=== PATIENT | male | born 1935 | race Caucasian/White ===

== ENCOUNTER → 2016-05-14 | Outpatient (CLI) | payer OTHER ==
[2016-03-18 10:08] VITALS: BP 114/50
[~2016-05-14] MED LIST: AMIO200T2 PO; ASPI325T11 PO; ATOR20TA58 PO; ATOR40TA59 PO; CLOP75TA PO; CONTRAST GIVEN MC PRN; FURO40TA4 PO; IOHEXOL 300 MG/ML 100ML VIAL. IV ONE; METF500T4 PO; METO50TA2 PO; MIDO2.5T PO; NITR0.4T6 SL; OMEP40CA5 PO; OXYC1TAB7 PO; PYRI250T PO; VITA1TAB3 PO
--- NOTE | 2016-05-14 14:43 | KCIC ---
PROCEDURE CT angiogram chest. HISTORY Chest pain. History of clot. Previous cardiac surgery. TECHNIQUE Axial images and coronal, oblique coronal, and sagittal maximum intensity projection re-formatted images are provided. 95 milliliters of intravenous Omnipaque 300 was administered without complication. One or more of the following individualized dose reduction techniques were utilized for this exam: 1. Automated exposure control. 2. Adjustment of the mA and/or kV according to patient's size. 3. Use of iterative reconstruction technique. COMPARISON No prior CT. Chest radiograph from March 29, 2016. FINDINGS The contrast bolus is satisfactory. There is no filling defect to suggest pulmonary embolism. There is atheromatous disease in the thoracic aorta without aneurysm. There are postoperative findings of CABG. There is no hilar or mediastinal adenopathy. Central airways are patent. There is no pleural effusion. There is emphysema, mild to moderate. There is no consolidation. Pulmonary nodule abutting the pleura versus pleural lymph node is noted on the left on axial image 37 measuring 6 millimeters. Calcified granuloma is noted in the left lung base. There is minimal fatty infiltration of the liver. There is a simple cyst partially included in the left kidney, at least 2.4 centimeters in size. There are degenerative changes the spine. IMPRESSION 1. Negative for pulmonary embolism. 2. Emphysema. 3. Pulmonary nodule for which 6 month follow up would be recommended per Fleischner society. Electronically signed by: Nikos Montero MD (May 14, 2016 14:42:18)
== END | disposition home or self-care (01) ==
LOC: KCIC CT 13:10
PROVIDERS: ATTEND Internal Medicine Critical Care Medicine
DX: R07.9 Chest pain, unspecified (principal); J43.9 Emphysema, unspecified; R91.1 Solitary pulmonary nodule
CPT/HCPCS: 71275; 82565; Q9967

== ENCOUNTER 2016-07-09 09:15 | Observation (INO) | payer OTHER ==
[~2016-07-09] VITALS: Ht 188 cm; Wt 93.5 kg
[2016-07-09] VITALS (14 sets, daily range): BP systolic 139–183; BP diastolic 80–105
[~2016-07-09 09:15] MED LIST changes: -CONTRAST GIVEN MC PRN; -IOHEXOL 300 MG/ML 100ML VIAL. IV ONE
[2016-07-09 09:41] LABS: HEMATOCRIT 39.1 % (39.0-53.0); HEMOGLOBIN 12.9 g/dL (13.0-17.5); RED BLOOD COUNT 4.4 x10^6/uL (4.30-5.70); RED CELL DISTRIBUTION WIDTH 15.8 % (11.5-14.5); WHITE BLOOD COUNT 9.7 x10^3/uL (4.0-11.0)
[2016-07-09] MEDS ORDERED: MIDO10TA PO (09:45)
[2016-07-09] MEDS ORDERED: METF-620 PO (09:45)
[2016-07-09 09:46] LABS: CALCIUM 8.8 mg/dL (8.5-10.1); CREATININE 1.4 mg/dL (0.7-1.3); GFR 48.5; POTASSIUM 4.7 mmol/L (3.5-5.1)
[2016-07-09] MEDS ORDERED: LIDOCAINE 2% 20 ML VIAL. ONE (09:55)
[2016-07-09] MEDS ORDERED: IODIXANOL 320 MG/ML 100 ML VIAL. ONE (09:55)
[2016-07-09 09:59] LABS: INR 1.1 (0.8-1.1); PROTHROMBIN TIME PATIENT 13.3 SEC (11.7-14.0)
[2016-07-09] MEDS ORDERED: fentaNYL PF VIAL 100 MCG/2 ML VIAL ONE (10:16)
[2016-07-09] MEDS ORDERED: MIDAZOLAM HCL/PF 2 MG/2 ML VIAL. ONE (10:16)
--- NOTE | 2016-07-09 10:19 | PDOC ---
MODERATE SEDATION ASSESSMENT RISKS/ALTERNATIVES Risks/Alternatives Risks and alternatives of this type of sedation and procedure discussed with: RISK/ALTERNATIVES: Patient H & P ON CHART H & P H & P on chart and reviewed for co-morbid conditions and appropriate labs. H&P ON CHART: Yes STATUS PREG STATUS ASSESSED: N/A MEDS/ALLERGIES REVIEWED Meds/Allergies Reviewed Medications and Allergies including time and route of recently administered narcotics and sedatives. MEDS/ALLERGIES REVIEWED: Yes ASA RATING ASA RATING: II AIRWAY ASSESSMENT Airway Assessment Airway patency, oral function limitations, presence of caps, crowns, dentures, partials, and ability to extend neck assessed. AIRWAY ASSESSMENT: Yes MALLAMPATI SCORE MALLAMPATI SCORE: II PRE-SEDATION ASSESSMENT PRE-SEDATION ASSESSMENT: Yes RICK FINK MD Jul 09, 2016 10:19
[2016-07-09] MEDS ORDERED: BIVALIRUDIN 250 MG VIAL. IV ONE ×2 (10:55→11:15)
[2016-07-09] MEDS ORDERED: IODIXANOL 320 MG/ML 100 ML VIAL. IART ONE (11:15)
[2016-07-09] MEDS ORDERED: MIDAZOLAM HCL/PF 2 MG/2 ML VIAL. IV ONE (11:15)
[2016-07-09] MEDS ORDERED: fentaNYL PF VIAL 100 MCG/2 ML VIAL IV ONE (11:15)
[2016-07-09] MEDS ORDERED: CONTRAST GIVEN MC PRN (11:15)
[2016-07-09] MEDS ORDERED: LIDOCAINE 2% 20 ML VIAL. IJ ONE (11:15)
[2016-07-09] MEDS: IV NORMAL SALINE 1000ML BAG 1,000 ML IV SCH ×2 (11:20→18:30)
[2016-07-09] MEDS ORDERED: IV 1/2 NORMAL SALINE 1,000 ML IV SCH (11:27)
[2016-07-09] MEDS ORDERED: ACETAMINOPHEN 325 MG TABLET. PO PRN (11:30)
[2016-07-09] MEDS ORDERED: NITROGLYCERIN SUBLINGUAL 0.4 MG BOTTLE OF 25. SL PRN (11:30)
--- NOTE | 2016-07-09 11:51 | CARD ---
APPROVED REPORT Procedure(s) performed: 1. Right and left heart catheterization, selective coronary angiography, afshin ective angiography of the bypass grafts and left ventriculography 2. Successful PCI/drug eluting stent placement to the right coronary artery INDICATION The indication(s) include : unstable angina . PROCEDURE NARRATIVE After explaining the risks, benefits and alternative options, informed consent was obtained from jeannette ent. Patient was brought to the cardiac Junk Removal Specialist and his right groin was prepped and draped in the us ual fashion. 20 mL of 2% lidocaine was infiltrated into the skin and subcutaneous tissues for local a nesthesia. Arterial and venous accesses were obtained in the right common femoral artery and vein res pectively and 6 and 8 Nam[place]ian sheaths were inserted. A 7.5 [place] Exeter-Alley catheter was then advanced under fluoroscopy guidance and intracardiac pressures, oxygen saturations and cardiac output by ther modilution method was measured. Subsequently, 6 [place]ian IM catheter was used to perform selective barry ography of the left internal mammary artery graft to the left anterior descending artery, [place] righ t coronary artery and also the saphenous vein graft to the diagonal branch. 6 [place]ian JL4 catheter was used to perform selective angiography of the left main coronary artery. 6 [place]ian pigtail catheter wa s used to perform left ventriculography. The following findings were noted. FINDINGS A. RIGHT HEART CATHETERIZATION a. Intracardiac pressures: Mean right atrial pressure 1 mmHg, right ventricle pressure 27/1 mmHg, c oronary artery pressure 27/10 mmHg with mean PA pressure 16 mmHg, mean pulmonary capillary wedge pres sure 5 mmHg. No evidence of pulmonary hypertension. b. Oxygen saturations: Right atrium 64.9%, pulmonary artery 64.8%, femoral arterial sheath 95%. No evidence of intracardiac shunt. c. Cardiac output by thermodilution method 5.1 L/m. B. LEFT HEART CATHETERIZATION 1. Hemodynamics: Left ventricular end-diastolic pressure 10 mmHg. No pullback gradient across the a ortic valve. 2. Left ventriculography: Normal left ventricle systolic function with ejection fraction estimated at 50-55%. No significant mitral regurgitation seen. 3. Coronary and bypass graft angiography a. The left main coronary artery arose from the left sinus of Valsalva, gave rise to the left anteri or descending and left circumflex arteries and showed 30% stenosis in the distal segment. b. The left anterior descending artery showed 90% ostial segment stenosis. c. The left circumflex artery showed 30% stenosis involving the midsegment of a large second obtuse marginal branch. d. The right coronary artery was a large and dominant vessel that showed 70-80% calcified stenosis i nvolving the ostial segment. e. The left internal mammary artery graft to the left anterior descending artery was widely patent. Distal to the anastomosis, the [place] left anterior descending artery did not show any significant st enosis. f. The saphenous vein graft to the diagonal branch was widely patent. INTERVENTION The right coronary artery was engaged with a 6 Namibian JR4 guide catheter and the stenosis in the osti al segment was crossed with a 0.014 inch moziy guidewire. This was stented successfully with a 4.0 x 12 mm resolute drug eluting stent. Follow-up angiography showed resolution of the stenosis t o 0% with MAUREEN-3 distal flow. Patient tolerated the procedure well. Hemostasis in the right groin was achieved using Angio-Seal and manual compression. There were no immediate complications. Conclusion 1. Coronary artery disease s/p coronary artery bypass surgery with patent left internal mammary eliseo ry graft to the left anterior descending artery and patent saphenous vein graft to the diagonal branc h. The dominant right coronary artery that was not grafted showed 70-80% ostial segment stenosis. 2. Successful PCI/drug eluting stent placement to the right coronary artery. 3. Normal left ventricle systolic function with ejection fraction estimated at 55%. 4. No evidence of pulmonary hypertension. 5. No evidence for intracardiac shunt. Recommendations 1. Aspirin 325 mg daily 2. Plavix 75 mg daily for preferably one year 3. Cardiovascular risk factor modification.
[2016-07-09] MEDS ORDERED: CLOPIDOGREL BISULFATE 75 MG TABLET PO SCH (12:00)
[2016-07-09] MEDS ORDERED: ASPIRIN 325 MG TABLET PO SCH (12:00)
[2016-07-10 03:18] VITALS: BP 137/84
[2016-07-10 07:00] VITALS: BP 157/85
[2016-07-10] MEDS ORDERED: ASPIRIN ENTERIC COATED 325 MG TABLET.DR. PO SCH (08:00)
[2016-07-10] MEDS ORDERED: CLOPIDOGREL BISULFATE 75 MG TABLET PO SCH (08:00)
[2016-07-10] MEDS ORDERED: ASPI325T11 PO (09:11)
--- NOTE | 2016-07-10 09:16 | DISCH ---
DISCHARGE INSTRUCTIONS Condition on Discharge Condition on Discharge: Stable Activity After Discharge Activity Instructions for Disc: Activity as tolerated, Avoid exertion Lifting Instructions after Dis: No heavy lifting, No pulling or pushing, Do not lift >10 pounds Driving Instructions after Dis: Do not drive (for 4-7 days ) Weight Bearing Status after Di: Full weight bearing Diet after Discharge Diet after Discharge: Cardiac Contacting the DRBola after DC Call your doctor for: Concerns you may have JANIE ENGLISH APRN Jul 10, 2016 09:16
--- NOTE | 2016-07-10 11:19 | PDOC3 ---
Discharge Summary Visit Information Date of Admission: Jul 09, 2016 Date of Discharge: Jul 10, 2016 Admitting Diagnosis: unstable angina Final Diagnosis Problems Medical Problems: (1) CAD (coronary artery disease) Status: Acute (2) CAD (coronary artery disease) Status: Acute (3) Unstable angina Status: Acute Brief Hospital Course Allergies Allergies Coded Allergies Type Severity Reaction Last Updated Verified No Known Allergies Allergy Unknown 03/09/16 Yes Vital Signs Vital Signs Date Time Temp Pulse Resp B/P Pulse Ox O2 Delivery O2 Flow Rate FiO2 07/10/16 07:40 Room Air 3.0 07/10/16 07:00 97.8 75 18 157/85 94 97.8 Lab Results Laboratory Tests Test 07/09/16 09:30 07/09/16 16:45 07/09/16 20:49 07/10/16 08:22 White Blood Count 9.7x10^3/uL (4.0-11.0) Red Blood Count 4.40x10^6/uL (4.30-5.70) Hemoglobin 12.9g/dL (13.0-17.5) Hematocrit 39.1% (39.0-53.0) Mean Corpuscular Volume 89fL (79-100) Mean Corpuscular Hemoglobin 29pg (25-35) Mean Corpuscular Hemoglobin Concent 33g/dL (31-37) Red Cell Distribution Width 15.8% (11.5-14.5) Platelet Count 197x10^3/uL (140-400) Prothrombin Time 13.3SEC (11.7-14.0) Prothromb Time International Ratio 1.1 (0.8-1.1) Sodium Level 142mmol/L (136-145) Potassium Level 4.7mmol/L (3.5-5.1) Chloride Level 108mmol/L (98-107) Carbon Dioxide Level 25mmol/L (21-32) Anion Gap 9 (6-14) Blood Urea Nitrogen 24mg/dL (8-26) Creatinine 1.4mg/dL (0.7-1.3) Estimated GFR (Cockcroft-Gault) 48.5 Glucose Level 141mg/dL (70-99) Calcium Level 8.8mg/dL (8.5-10.1) Glucose (Fingerstick) 107mg/dL (70-99) 138mg/dL (70-99) 152mg/dL (70-99) Laboratory Tests Test 07/09/16 16:45 07/09/16 20:49 07/10/16 08:22 Glucose (Fingerstick) 107mg/dL (70-99) 138mg/dL (70-99) 152mg/dL (70-99) Brief Hospital Course Mr. Horner is a pleasant 81 old male, s/p recent coronary artery bypass surgery , who presented with complaints of ongoing dyspnea upon minor exertion, severely limiting his activities of daily living. Cardiac rehabilitation did not improve symptoms. Patient underwent right and left heart catheterization for definitive evaluation. Cath revealed patent left internal mammary artery graft to the left anterior descending artery and patent saphenous vein graft to the diagonal branch. The dominant right coronary artery that was not grafted showed 70-80% ostial segment stenosis. No evidence of pulmonary hypertension. Patient underwent successful PCI/drug eluting stent placement to the right coronary artery via right groin approach. Arteriotomy site CDI with neurovascular status intact. Did well overnight without complications. No significant rhythm ectopies overnight on telemetry. Ambulatory without difficulty. No CP, SOA. Lungs CTA. He is to continue DAPT with ASA 325mg and Plavix. No BB or JENN with history of orthostatic hypotension treated with Midodrine. Post cath instructions also have been reviewed. History significant for ischemic cardiomyopathy with an EF of 30-35%; presently well-compensated. Additionally significant for orthostatic hypotension, which has improved with recently increased dose of Midodrine. Patient would like to continue cardiac rehab at [facility] as it is more convenient. Patient to follow up in our office with Dr. Bruner in 4 weeks. Discharge Information Condition at Discharge: Improved Follow Up: Weeks (4) Disposition/Orders: D/C to Home Scheduled Aspirin (Aspirin Ec) 1 TAB PO DAILY Atorvastatin Calcium (Atorvastatin Calcium) 1 TAB PO QHS (Reported) Clopidogrel Bisulfate (Clopidogrel) 1 TAB PO DAILY (Reported) Metformin Hcl (Metformin Hcl) 1,000 MG PO BIDWMEALS (Reported) Midodrine Hcl (Midodrine Hcl) 10 MG PO TID (Reported) Omeprazole (Omeprazole) 40 MG PO DAILY (Reported) Patient Instructions Patient Instructions GENERAL INSTRUCTIONS: 1. Your dressing should be removed prior to leaving the hospital. 2. It is OK to shower the day after your procedure. 3. If you received stents, be sure to carry your stent information card with you in your wallet/purse at all times. 4. Call the office immediately at [phone] if you notice any fever or if there is redness, worsening tenderness/pain, increased bruising, or drainage from the puncture site. 5. Should you have bleeding from the site, lie down immediately & put pressure on the site. The pressure should be hard enough to stop the bleeding. Have the nearest person call 911. DO NOT try to drive to the ER with active bleeding. 6. If you notice a change in color, coolness to touch, or loss of feeling in the affected extremity, come to the emergency room. Please have someone drive you or call 911 if no one is available. DO NOT drive yourself. 7. If you normally take glucophage (metformin), please do not take this medicine for 48 hours following your procedure. 8. DO NOT STOP TAKING YOUR PLAVIX OR ASPIRIN UNLESS IT IS CLEARED BY A BRAN MIXER OF YOUR PHONE SCREENER AT OUR OFFICE. 9. QUIT SMOKING: the [place] [employer], [place] [employer], & [place] [employer] have cessation resources available on their websites 10. Please have someone available to drive you home from the hospital as you may be limited by sedation medications given during the procedure. Femoral (Groin) access: 1. Do no lifting, pushing, pulling, bending, stooping, or recurrent stair climbing for 3 days following your procedure. 2. Once past the first 3 days, do not do any HEAVY exertion or lifting for one week following the procedure. No gym workouts, running, lifting greater than a gallon of milk, etc 3. Do not submerge in bath or pool for one week. OK to drive 3 days following your procedure, but if going long distance, do not go alone & take hourly breaks to get out of car and walk around. Radial Artery (Wrist) access: 1. No pushing, pulling, lifting, typing, or anything that requires repetitive use/movement of the affected wrist for 3 days following your procedure. 2. OK to drive the day following your procedure. (This is because of effects of sedating medications.) Call the office at [phone] for any questions or concerns. JANIE ENGLISH APRN Jul 10, 2016 11:19
== END 2016-07-10 10:15 | disposition home or self-care (01) ==
LOC: CCL 09:15 → 2 NORTH 11:30
PROVIDERS: ADMIT Internal Medicine Cardiovascular Disease; ATTEND Internal Medicine Cardiovascular Disease
DX: I25.110 Atherosclerotic heart disease of native coronary artery with unstable angina pectoris (principal); I25.5 Ischemic cardiomyopathy; Z95.1 Presence of aortocoronary bypass graft; Z95.5 Presence of coronary angioplasty implant and graft
CPT/HCPCS: 36415; 80048; 82947; 85027; 85610; 92928; 93461; C1769; C1771; C1874; C1887; C1892; G0269; G0378; G0379; J0583; J2250; J3010; J7030; 96374; 96375

== ENCOUNTER 2016-08-02 11:51 | Inpatient (IN) | payer OTHER ==
[~2016-08-02] VITALS: Ht 185.4 cm; Wt 94.5 kg
[2016-08-02] VITALS (10 sets, daily range): BP systolic 119–189; BP diastolic 67–111
[~2016-08-02 11:51] MED LIST changes: +METF-620 PO; +MIDO10TA PO
--- NOTE | 2016-08-02 13:21 | PDOC2 ---
CARDIAC CONSULT DATE OF CONSULT Date of Consult DATE: 08/02/16 TIME: 13:16 REASON FOR CONSULT Reason for Consult: CP, SVT HISTORY OF PRESENT ILLNESS HISTORY OF PRESENT ILLNESS Mr Horner is an 81 year old male with history of recent CABG x 2 (GONSALES - LAD, SVG - D1) in February 2016, with subsequent PCI and stent last month to RCA. He presented to the ED this am with complaints of dyspnea, chest pressure and palpitations. He was found to be in SVT, given amiodarone and started on amiodarone drip. He was seen in the ED at [facility] in consult. At the time of consult he was on amiodarone drip and back in sinus rhythm 80s, chest pain had resolved and he was resting comfortably. His initial troponin was mildly elevated but in the indeterminate range. He reports he had onset of symptoms while making his bed this morning. He says he has palpitations on a daily basis but normally they do not last. PAST MEDICAL HISTORY Past Medical History Cardiovascular: AFIB (paroxysmal), CAD, HTN, Hyperlipidemia, orthostatic hypotension, CABG and subsequent stenting Pulmonary: COPD, Pulmonary embolus (hx of DVT) CENTRAL NERVOUS SYSTEM: Other (No pertinent history) GI: GERD Heme/Onc: Other (CLL treated with chemotherapy 2-3 yrs ago) Hepatobiliary: Other (SILVEIRA) Psych: No pertinent hx Musculoskeletal: Osteoarthritis Rheumatologic: No pertinent hx Infectious disease: No pertinent hx ENT: No pertinent hx Renal/: Benign prostatic enlarg. Endocrine: Diabetes (2) Dermatology: No pertinent hx PAST SURGICAL HISTORY Past Surgical History Appendectomy, Other (PCI/stent to LAD in 2009 and follow up [facility] in 03/2013; bone marrow biopsy) FAMILY HISTORY Family History Coronary Artery Disease (father), Stroke, Other (arrhythmia ?afib) SOCIAL HISTORY Social History Smoke: No (remote tobaccoism) ALCOHOL: none Drugs: None Lives: with Family CURRENT MEDICATIONS CURRENT MEDICATIONS Home meds: Midodrine 10mg TID Lipitor 40mg daily Plavix 75 mg daily omeprazole 40mg daily Vitamin D3 1000 IU daily Metformin 1000mg BID ALLERGIES ALLERGIES: Coded Allergies: No Known Allergies (Verified Allergy, Unknown, 03/09/16) ROS Review of System as per HPI or negative PHYSICAL EXAM General: Alert, Oriented X3, Cooperative, No acute distress HEENT: Atraumatic, EOMI, Mucous membr. moist/pink, Other (no JVD/HJR) Lungs: Clear to auscultation, Normal air movement Heart: Regular rate, Normal S1, Normal S2, Other (no gallops, clicks or rubs) Abdomen: Normal bowel sounds, Soft, No tenderness Extremities: No clubbing, No cyanosis, No edema, Normal pulses Neuro: Normal speech, Strength at 5/5 X4 ext Psych/Mental Status: Mental status NL, Mood NL VITALS VITALS HR 80, sinus rhythm, SaO2 96%, BP 128/76 LABS Lab: WBC 13.2, Cr 1.5, Gluc 186, Trop 0.036, Alb 3.3 remainder of labs reviewed. EKG EKG SVT with LBBB rates up to 180s ECHOCARDIOGRAM ECHOCARDIOGRAM 03/02/16 <Conclusion> Left ventricle systolic function is moderately impaired. The Ejection Fraction is 30-35%. The septum, anterior wall and apex appear hypokinetic. HEART CATH HEART CATH 07/09/16 A. RIGHT HEART CATHETERIZATION a. Intracardiac pressures: Mean right atrial pressure 1 mmHg, right ventricle pressure 27/1 mmHg, coronary artery pressure 27/10 mmHg with mean PA pressure 16 mmHg, mean pulmonary capillary wedge pressure 5 mmHg. No evidence of pulmonary hypertension. b. Oxygen saturations: Right atrium 64.9%, pulmonary artery 64.8%, femoral arterial sheath 95%. No evidence of intracardiac shunt. c. Cardiac output by thermodilution method 5.1 L/m. B. LEFT HEART CATHETERIZATION 1. Hemodynamics: Left ventricular end-diastolic pressure 10 mmHg. No pullback gradient across the aortic valve. 2. Left ventriculography: Normal left ventricle systolic function with ejection fraction estimated at 50-55%. No significant mitral regurgitation seen. 3. Coronary and bypass graft angiography a. The left main coronary artery arose from the left sinus of Valsalva, gave rise to the left anterior descending and left circumflex arteries and showed 30 % stenosis in the distal segment. b. The left anterior descending artery showed 90% ostial segment stenosis. c. The left circumflex artery showed 30% stenosis involving the midsegment of a large second obtuse marginal branch. d. The right coronary artery was a large and dominant vessel that showed 70-80 % calcified stenosis involving the ostial segment. e. The left internal mammary artery graft to the left anterior descending artery was widely patent. Distal to the anastomosis, the [place] left anterior descending artery did not show any significant stenosis. f. The saphenous vein graft to the diagonal branch was widely patent. s/p PCI/ BARTOLO to RCA ASSESSMENT/PLAN ASSESSMENT/PLAN 1. SVT with LBBB - sinus rhythm with amiodarone. history of PAF. Currently home meds do not include antiarrhythmics or anticoagulants. Consider outpatient event monitoring. May consider resumption of OAC and amiodarone outpatient. No rate control meds currently due to orthostatic hypotension (on Midodrine). 2. chest pain - likely secondary to #1. Monitor serial enzymes. 3. CAD/CABG status with subsequent PCI stent - continue medical therapy 4. HLD - continue statin therapy 5. orthostatic hypotension with history of syncope - remains on midodrine at home. Problems: SUSANNE NICHOLSON APRN August 02, 2016 13:21
[2016-08-02] MEDS ORDERED: METF500T4 PO (13:41)
[2016-08-02] MEDS: MIDODRINE 5 MG TABLET PO SCH ×2 (14:00→17:41)
[2016-08-02] MEDS ORDERED: IV NORMAL SALINE 500ML BAG 500 ML IV ONE (14:00)
[2016-08-02] MEDS ORDERED: METF-620 PO (14:06)
--- NOTE | 2016-08-02 14:33 | PDOC1 ---
History and Physical Past Medical History Cardiovascular: AFIB, CAD, HTN, Hyperlipidemia Pulmonary: COPD, Pulmonary embolus CENTRAL NERVOUS SYSTEM: Other GI: GERD Heme/Onc: Other Hepatobiliary: Other Psych: No pertinent hx Rheumatologic: No pertinent hx Infectious disease: No pertinent hx Renal/: Benign prostatic enlarg. Endocrine: Diabetes Past Surgical History Past Surgical History: Appendectomy, Other Family History Family History: Coronary Artery Disease, Stroke, Other Social History ALCOHOL: none Drugs: None Current Medications Current Medications Current Medications Medications (Trade) Dose Ordered Sig/Musa Start Time Stop Time Status Last Admin Dose Admin Aspirin (Ecotrin) 325 mg DAILYWBKFT 08/02/16 14:00 Atorvastatin Calcium (Lipitor) 40 mg QHS 08/02/16 21:00 Clopidogrel Bisulfate (Plavix) 75 mg DAILYWBKFT 08/02/16 14:00 Midodrine (Proamatine) 10 mg [id number] 08/02/16 14:00 Pantoprazole Sodium (Protonix) 40 mg DAILYAC 08/02/16 14:00 Sodium Chloride 500 ml @ 500 mls/hr 1X ONCE 08/02/16 14:00 08/02/16 14:59 Allergies Allergies Allergies Coded Allergies Type Severity Reaction Last Updated Verified No Known Allergies Allergy Unknown 03/09/16 Yes ROS Review of System CONSTITUTIONAL: No fever or chills EYES: No recent changes SKIN: No rash or itching CARDIOVASCULAR: No chest pain, syncope, but sob, RESPIRATORY: No SOB or cough GASTROINTESTINAL: No nausea, vomiting or abdominal pain NEUROLOGICAL: No headaches or weakness ENDOCRINE: No cold or heat intolerance GENITOURINARY: No urgency or frequency of urination MUSCULOSKELETAL: No back pain or joint pain LYMPHATICS: No enlarged lymph nodes PSYCHIATRIC: No anxiety or depression Physical Exam Physical Exam GEN.: No apparent distress. Alert and oriented. HEENT: Head is normocephalic, atraumatic NECK: Supple. no JVD LUNGS: Clear to auscultation. normal airflow anterior HEART: RRR, S1, S2 present. Peripheral pulses intact ABDOMEN: Soft, nontender. Positive bowel sounds. EXTREMITIES: Without any cyanosis. NEUROLOGIC: Normal speech, normal tone PSYCHIATRIC: Normal affect, normal mood. SKIN: dry Vitals Vitals Vital Signs Date Time Temp Pulse Resp B/P (MAP) Pulse Ox O2 Delivery O2 Flow Rate FiO2 08/02/16 13:00 97.9 74 12 160/94 (116) 97 Room Air 97.9 VTE Prophylaxis Ordered VTE Prophylaxis Devices: Yes VTE Pharmacological Prophylaxi: Yes ROSSY GRAMAJO MD August 02, 2016 14:33
[2016-08-02] MEDS: ASPIRIN ENTERIC COATED 325 MG TABLET.DR. PO SCH (14:45)
[2016-08-02] MEDS ORDERED: ALBUTEROL SULFATE 2.5 MG/3 ML NEBU. NEB PRN (14:45)
[2016-08-02] MEDS ORDERED: HYDROcodone/APAP 5/325MG 1 TAB TABLET PO PRN (14:45)
[2016-08-02] MEDS ORDERED: ONDANSETRON PF 4 MG/2 ML VIAL. IV PRN (14:45)
[2016-08-02] MEDS ORDERED: AMIODARONE 900 MG in IV DEXTROSE 5% 500 ML IV PRN (14:45)
[2016-08-02] MEDS: PANTOPRAZOLE 40 MG TABLET.DR. PO SCH (14:45)
[2016-08-02] MEDS ORDERED: ACETAMINOPHEN 325 MG TABLET. PO PRN (14:45)
[2016-08-02] MEDS: CLOPIDOGREL BISULFATE 75 MG TABLET PO SCH (14:45)
[2016-08-02] MEDS: ATORVASTATIN CALCIUM 40 MG TABLET. PO SCH (20:46)
[2016-08-02 23:03] LABS: BILIRUBIN,URINE NEGATIVE (NEG); GLUCOSE,URINE NEGATIVE (NEG); NITRITE,URINE NEGATIVE (NEG); PH,URINE 5.5; PROTEIN,URINE NEGATIVE (NEG-TRACE)
[2016-08-02 23:07] LABS: BACTERIA,URINE 0 /HPF (0-FEW); RBC,URINE 0 /HPF (0-2); SQUAMOUS EPITHELIAL CELL,UR FEW /LPF; WBC,URINE 0 /HPF (0-4)
[2016-08-02] MEDS: hydrALAZINE 20 MG/ML VIAL. IVP PRN (23:14)
--- NOTE | 2016-08-02 23:47 | HP ---
ADMIT DATE: 08/02/2016 CHIEF COMPLAINT: Chest pain and increased heart rate. HISTORY OF PRESENT ILLNESS: An 81-year-old male patient with several comorbid conditions such as CABG in 2016 and he has coronary artery disease, recent stent placement in 06/2016 to RCA, presented to the ED at [facility] with shortness of breath, chest pressure and palpitations. Initial EKG as per the ER physician, he was diagnosed with questionable AFib/SVT. He was started on amiodarone and amiodarone drip and given the complicated nature of the coronary artery disease and persistent symptoms, the patient has been transferred to [facility]. At the time of my examination, the patient is resting comfortably, and son at bedside, denies any chest pain and he states his activity has been limited recently after CABG and stent placement and also he is not eating well as per family members. His palpitations have been improved after amiodarone drip. PAST MEDICAL HISTORY: Please see my electronic H and P. REVIEW OF SYSTEMS: Please see my electronic H and P. PHYSICAL EXAMINATION: Please see my electronic H and P. FAMILY HISTORY: Please see my electronic H and P. LABORATORY FINDINGS: CBC ____ could not able to verify; however, within normal limits per report. Troponins, first set normal. EKG: Tachycardia, sinus (as per the report). ASSESSMENT AND PLAN: 1. Supraventricular tachycardia with left bundle branch block features, status post amiodarone, currently on amiodarone drip. Cardiology has been consulted and he was not using any oral anticoagulation. 2. Chest pain. We will get 3 more sets of troponin. 3. Prior history of coronary artery disease and coronary artery bypass graft with recent percutaneous ____, currently on aspirin and Plavix. 4. Hyperlipidemia. 5. Orthostatic hypotension, on midodrine, currently hemodynamically stable. 6. History of chronic lymphocytic leukemia, currently stable. 7. Diabetes mellitus, on metformin. Holding metformin. 8. Paroxysmal atrial fibrillation, not on oral anticoagulation. 9. Deep venous thrombosis prophylaxis with Lovenox. 10. Hyperglycemia. He will be placed on sliding scale insulin. Plan discussed with the patient, and son. Agreed with current plan. ROSSY GRAMAJO MD DR: AMINAH/jacinto JOB#: [id number] / [id number] [place]
[2016-08-03] VITALS (17 sets, daily range): BP systolic 98–193; BP diastolic 57–99
[2016-08-03] MEDS ORDERED: HEPARIN for IV BOLUS 10,000 UNIT/10 ML VIAL. IV ONE (00:30)
[2016-08-03] MEDS ORDERED: HEPARIN 25,000UTS/500ML PREMIX 500 ML IV PRN (00:30)
[2016-08-03] MEDS ORDERED: HEPARIN for IV BOLUS 10,000 UNIT/10 ML VIAL. IV PRN (00:30)
[2016-08-03 01:04] LABS: INR 1.2 (0.8-1.1); PROTHROMBIN TIME PATIENT 14.4 SEC (11.7-14.0)
[2016-08-03] MEDS: MIDODRINE 5 MG TABLET PO SCH ×3 (06:05→18:00)
--- NOTE | 2016-08-03 07:07 | EKG ---
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
[2016-08-03 07:57] LABS: BASO # 0.1 x10^3/uL (0.0-0.2); BASO % 1 % (0-3); EOS % 2 % (0-3); HEMATOCRIT 38.4 % (39.0-53.0); HEMOGLOBIN 12.4 g/dL (13.0-17.5); LYMPH # 1.4 x10^3/uL (1.0-4.8); LYMPH % 12 % (24-48); MEAN CORPUSCULAR HEMOGLOBIN 29 pg (25-35); MEAN CORPUSCULAR HGB CONC 32 g/dL (31-37); MEAN CORPUSCULAR VOLUME 89 fL (79-100); MONO % 8 % (0-9); NEUT % 77 % (31-73); PLATELET COUNT 186 x10^3/uL (140-400); RED BLOOD COUNT 4.29 x10^6/uL (4.30-5.70); RED CELL DISTRIBUTION WIDTH 15.5 % (11.5-14.5); WHITE BLOOD COUNT 11.3 x10^3/uL (4.0-11.0)
[2016-08-03] MEDS: ASPIRIN ENTERIC COATED 325 MG TABLET.DR. PO SCH (08:00)
[2016-08-03] MEDS: CLOPIDOGREL BISULFATE 75 MG TABLET PO SCH (08:00)
[2016-08-03 08:09] LABS: CALCIUM 9.2 mg/dL (8.5-10.1); CREATININE 1.1 mg/dL (0.7-1.3); GFR 64.1; MAGNESIUM 1.8 mg/dL (1.8-2.4); POTASSIUM 4.2 mmol/L (3.5-5.1)
[2016-08-03] MEDS: PANTOPRAZOLE 40 MG TABLET.DR. PO SCH (09:02)
[2016-08-03] MEDS: hydrALAZINE 20 MG/ML VIAL. IVP PRN ×2 (09:05→19:21)
[2016-08-03] MEDS: IV NORMAL SALINE 1000ML BAG 1,000 ML IV SCH ×2 (11:43→19:59)
--- NOTE | 2016-08-03 11:53 | PDOC ---
CARDIO Progress Notes Date and Time Date of Service 08/03/2016 Time of Evaluation 1130 Subjective Subjective: No Chest Pain, No Palpitations, No Dizziness, Other (DYSPNEA WITH STANDING; HYPO/HYPERTENSIVE) Comments: TROPONIN TO 1.1 OVERNIGHT AND HEP GTT STARTED Vitals Vitals Vital Signs Date Time Temp Pulse Resp B/P (MAP) Pulse Ox O2 Delivery O2 Flow Rate FiO2 08/03/16 10:59 98.7 81 20 131/72 (91) 94 Room Air 98.7 Weight Weight [ ] Input and Output Intake and Output Intake and Output 08/03/16 07:00 Intake Total 1906 ml Output Total 2350 ml Balance -444 ml Intake Oral 1000 ml IV Total 906 ml Output Urine Total 2350 ml Laboratory Labs Laboratory Tests Test 08/02/16 13:50 08/02/16 20:25 08/02/16 22:30 08/03/16 00:40 Nasal Screen MRSA (PCR) Negative (Negative) Troponin I Quantitative 1.129 ng/mL (0.000-0.055) Urine Collection Type Unknown Urine Color Yellow Urine Clarity Clear Urine pH 5.5 Urine Specific [place] 1.015 Urine Protein Negative mg/dL (NEG-TRACE) Urine Glucose (UA) Negative mg/dL (NEG) Urine Ketones (Stick) Negative mg/dL (NEG) Urine Blood Negative (NEG) Urine Nitrite Negative (NEG) Urine Bilirubin Negative (NEG) Urine Urobilinogen Dipstick 1.0 mg/dL (0.2 mg/dL) Urine Leukocyte Esterase Negative (NEG) Urine RBC 0 /HPF (0-2) Urine WBC 0 /HPF (0-4) Urine Squamous Epithelial Cells Few /LPF Urine Bacteria 0 /HPF (0-FEW) Prothrombin Time 14.4 SEC (11.7-14.0) Prothromb Time International Ratio 1.2 (0.8-1.1) Activated Partial Thromboplast Time 32 SEC (24-38) Test 08/03/16 07:25 White Blood Count 11.3 x10^3/uL (4.0-11.0) Red Blood Count 4.29 x10^6/uL (4.30-5.70) Hemoglobin 12.4 g/dL (13.0-17.5) Hematocrit 38.4 % (39.0-53.0) Mean Corpuscular Volume 89 fL (79-100) Mean Corpuscular Hemoglobin 29 pg (25-35) Mean Corpuscular Hemoglobin Concent 32 g/dL (31-37) Red Cell Distribution Width 15.5 % (11.5-14.5) Platelet Count 186 x10^3/uL (140-400) Neutrophils (%) (Auto) 77 % (31-73) Lymphocytes (%) (Auto) 12 % (24-48) Monocytes (%) (Auto) 8 % (0-9) Eosinophils (%) (Auto) 2 % (0-3) Basophils (%) (Auto) 1 % (0-3) Neutrophils # (Auto) 8.7 x10^3uL (1.8-7.7) Lymphocytes # (Auto) 1.4 x10^3/uL (1.0-4.8) Monocytes # (Auto) 1.0 x10^3/uL (0.0-1.1) Eosinophils # (Auto) 0.3 x10^3/uL (0.0-0.7) Basophils # (Auto) 0.1 x10^3/uL (0.0-0.2) Heparin Anti-Xa Act, Unfractionated 0.44 IU/mL (0.30-0.70) Sodium Level 137 mmol/L (136-145) Potassium Level 4.2 mmol/L (3.5-5.1) Chloride Level 102 mmol/L (98-107) Carbon Dioxide Level 20 mmol/L (21-32) Anion Gap 15 (6-14) Blood Urea Nitrogen 21 mg/dL (8-26) Creatinine 1.1 mg/dL (0.7-1.3) Estimated GFR (Cockcroft-Gault) 64.1 Glucose Level 171 mg/dL (70-99) Calcium Level 9.2 mg/dL (8.5-10.1) Magnesium Level 1.8 mg/dL (1.8-2.4) Troponin I Quantitative 0.624 ng/mL (0.000-0.055) Thyroid Stimulating Hormone (TSH) 4.944 uIU/mL (0.358-3.74) Physical Exam HEENT: Neck Supple W Full Motion Chest: Symmetric LUNGS: Clear to Auscultation Heart: S1S2, RRR, no murmurs, other (TELE: SR) Extremities: No Edema Neurology: alert, oriented, follow commands Assessment Assessment 1. SVT RATES TO 180 YESTERDAY AND CONVERTED TO SR WITH AMIODARONE QTC ABOUT 520 MSEC REMAINS NSR MILDLY ELEVATED TSH HISTORY OF PAF - OFF RATE CONTROLLING AGENTS - ? OAC DISCONTINUED 2. NSTEMI ? RATE RELATED VS INSTENT OCCLUSION - RCA BARTOLO ABOUT 2 WEEKS AGO -- NOW QUESTIONS TO WHETHER HE HAS TAKEN DAPT CORRECTLY/CONSISTENTLY WAS STARTED ON HEPARIN GTT OVERNIGHT DISCUSSED WITH ATTENDING AND ROUNDING CARDIOLOGISTS - AGREEABLE WITH CATH TO RE-EVALUATE RECENT STENT DISCUSSED WITH PATIENT AND - R/B/A - THEY ARE AGREEABLE TO PROCEED START NS AT 75 CC/HR HAS BEEN KEPT NPO AND HAS ORTHOSTASIS 3. ORTHOSTASIS CONTINUE MIDODRINE INCREASE P.O. INTAKE 4. HLD CONTINUE STATIN THERAPY 5. ? THYROID DISEASE TSH MILDLY ELEVATED DEFER TO PRIMARY SERVICE LULU BLEVINS CUSTOMER SUPPORT ANALYST August 03, 2016 11:53
[2016-08-03] MEDS ORDERED: IOHEXOL 300 MG/ML 100ML VIAL. ONE (13:13)
[2016-08-03] MEDS ORDERED: LIDOCAINE 2% 20 ML VIAL. ONE (13:13)
--- NOTE | 2016-08-03 13:15 | PDOC ---
PROGRESS NOTES Chief Complaint Chief Complaint 1. 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 2. Elevated troponin: ACS protocol, on heparin gtt, left heart cardiac catheterization today 3. Prior history of coronary artery disease and coronary artery bypass graft with recent PCI last month,: , currently on aspirin and Plavix. ? compliancy with medications at home 4. Hyperlipidemia.: stable, 5. Orthostatic hypotension, on midodrine, currently hemodynamically stable. 6. History of chronic lymphocytic leukemia, currently stable. 7. Diabetes mellitus, on metformin. Holding metformin. 8. Paroxysmal atrial fibrillation, on Heparin gtt. 9. Deep venous thrombosis prophylaxis with Lovenox. 10. Hyperglycemia. He will be placed on sliding scale insulin. History of Present Illness History of Present Illness NO CHEST PAIN ELEVATED TROPONIN Vitals Vitals Vital Signs Date Time Temp Pulse Resp B/P (MAP) Pulse Ox O2 Delivery O2 Flow Rate FiO2 08/03/16 10:59 98.7 81 20 131/72 (91) 94 Room Air 98.7 Physical Exam General: Alert, Oriented X3, Cooperative, No acute distress Heart: Regular rate, Normal S1, Normal S2, Other (no gallops, clicks or rubs) Lungs: Clear Abdomen: Normal bowel sounds, Soft, No tenderness Extremities: No clubbing, No cyanosis, No edema, Normal pulses Labs LABS Laboratory Tests Test 08/02/16 13:50 08/02/16 20:25 08/02/16 22:30 08/03/16 00:40 Nasal Screen MRSA (PCR) Negative (Negative) Troponin I Quantitative 1.129 ng/mL (0.000-0.055) Urine Collection Type Unknown Urine Color Yellow Urine Clarity Clear Urine pH 5.5 Urine Specific [place] 1.015 Urine Protein Negative mg/dL (NEG-TRACE) Urine Glucose (UA) Negative mg/dL (NEG) Urine Ketones (Stick) Negative mg/dL (NEG) Urine Blood Negative (NEG) Urine Nitrite Negative (NEG) Urine Bilirubin Negative (NEG) Urine Urobilinogen Dipstick 1.0 mg/dL (0.2 mg/dL) Urine Leukocyte Esterase Negative (NEG) Urine RBC 0 /HPF (0-2) Urine WBC 0 /HPF (0-4) Urine Squamous Epithelial Cells Few /LPF Urine Bacteria 0 /HPF (0-FEW) Prothrombin Time 14.4 SEC (11.7-14.0) Prothromb Time International Ratio 1.2 (0.8-1.1) Activated Partial Thromboplast Time 32 SEC (24-38) Test 08/03/16 07:25 White Blood Count 11.3 x10^3/uL (4.0-11.0) Red Blood Count 4.29 x10^6/uL (4.30-5.70) Hemoglobin 12.4 g/dL (13.0-17.5) Hematocrit 38.4 % (39.0-53.0) Mean Corpuscular Volume 89 fL (79-100) Mean Corpuscular Hemoglobin 29 pg (25-35) Mean Corpuscular Hemoglobin Concent 32 g/dL (31-37) Red Cell Distribution Width 15.5 % (11.5-14.5) Platelet Count 186 x10^3/uL (140-400) Neutrophils (%) (Auto) 77 % (31-73) Lymphocytes (%) (Auto) 12 % (24-48) Monocytes (%) (Auto) 8 % (0-9) Eosinophils (%) (Auto) 2 % (0-3) Basophils (%) (Auto) 1 % (0-3) Neutrophils # (Auto) 8.7 x10^3uL (1.8-7.7) Lymphocytes # (Auto) 1.4 x10^3/uL (1.0-4.8) Monocytes # (Auto) 1.0 x10^3/uL (0.0-1.1) Eosinophils # (Auto) 0.3 x10^3/uL (0.0-0.7) Basophils # (Auto) 0.1 x10^3/uL (0.0-0.2) Heparin Anti-Xa Act, Unfractionated 0.44 IU/mL (0.30-0.70) Sodium Level 137 mmol/L (136-145) Potassium Level 4.2 mmol/L (3.5-5.1) Chloride Level 102 mmol/L (98-107) Carbon Dioxide Level 20 mmol/L (21-32) Anion Gap 15 (6-14) Blood Urea Nitrogen 21 mg/dL (8-26) Creatinine 1.1 mg/dL (0.7-1.3) Estimated GFR (Cockcroft-Gault) 64.1 Glucose Level 171 mg/dL (70-99) Calcium Level 9.2 mg/dL (8.5-10.1) Magnesium Level 1.8 mg/dL (1.8-2.4) Troponin I Quantitative 0.624 ng/mL (0.000-0.055) Thyroid Stimulating Hormone (TSH) 4.944 uIU/mL (0.358-3.74) Comment Review of Relevant I have reviewed the following items samara (where applicable) has been applied. Labs Laboratory Tests Test 08/02/16 13:50 08/02/16 20:25 08/02/16 22:30 08/03/16 00:40 Nasal Screen MRSA (PCR) Negative (Negative) Troponin I Quantitative 1.129 ng/mL (0.000-0.055) Urine Collection Type Unknown Urine Color Yellow Urine Clarity Clear Urine pH 5.5 Urine Specific [place] 1.015 Urine Protein Negative mg/dL (NEG-TRACE) Urine Glucose (UA) Negative mg/dL (NEG) Urine Ketones (Stick) Negative mg/dL (NEG) Urine Blood Negative (NEG) Urine Nitrite Negative (NEG) Urine Bilirubin Negative (NEG) Urine Urobilinogen Dipstick 1.0 mg/dL (0.2 mg/dL) Urine Leukocyte Esterase Negative (NEG) Urine RBC 0 /HPF (0-2) Urine WBC 0 /HPF (0-4) Urine Squamous Epithelial Cells Few /LPF Urine Bacteria 0 /HPF (0-FEW) Prothrombin Time 14.4 SEC (11.7-14.0) Prothromb Time International Ratio 1.2 (0.8-1.1) Activated Partial Thromboplast Time 32 SEC (24-38) Test 08/03/16 07:25 White Blood Count 11.3 x10^3/uL (4.0-11.0) Red Blood Count 4.29 x10^6/uL (4.30-5.70) Hemoglobin 12.4 g/dL (13.0-17.5) Hematocrit 38.4 % (39.0-53.0) Mean Corpuscular Volume 89 fL (79-100) Mean Corpuscular Hemoglobin 29 pg (25-35) Mean Corpuscular Hemoglobin Concent 32 g/dL (31-37) Red Cell Distribution Width 15.5 % (11.5-14.5) Platelet Count 186 x10^3/uL (140-400) Neutrophils (%) (Auto) 77 % (31-73) Lymphocytes (%) (Auto) 12 % (24-48) Monocytes (%) (Auto) 8 % (0-9) Eosinophils (%) (Auto) 2 % (0-3) Basophils (%) (Auto) 1 % (0-3) Neutrophils # (Auto) 8.7 x10^3uL (1.8-7.7) Lymphocytes # (Auto) 1.4 x10^3/uL (1.0-4.8) Monocytes # (Auto) 1.0 x10^3/uL (0.0-1.1) Eosinophils # (Auto) 0.3 x10^3/uL (0.0-0.7) Basophils # (Auto) 0.1 x10^3/uL (0.0-0.2) Heparin Anti-Xa Act, Unfractionated 0.44 IU/mL (0.30-0.70) Sodium Level 137 mmol/L (136-145) Potassium Level 4.2 mmol/L (3.5-5.1) Chloride Level 102 mmol/L (98-107) Carbon Dioxide Level 20 mmol/L (21-32) Anion Gap 15 (6-14) Blood Urea Nitrogen 21 mg/dL (8-26) Creatinine 1.1 mg/dL (0.7-1.3) Estimated GFR (Cockcroft-Gault) 64.1 Glucose Level 171 mg/dL (70-99) Calcium Level 9.2 mg/dL (8.5-10.1) Magnesium Level 1.8 mg/dL (1.8-2.4) Troponin I Quantitative 0.624 ng/mL (0.000-0.055) Thyroid Stimulating Hormone (TSH) 4.944 uIU/mL (0.358-3.74) Laboratory Tests Test 08/02/16 13:50 08/02/16 20:25 08/02/16 22:30 08/03/16 00:40 Nasal Screen MRSA (PCR) Negative (Negative) Troponin I Quantitative 1.129 ng/mL (0.000-0.055) Urine Collection Type Unknown Urine Color Yellow Urine Clarity Clear Urine pH 5.5 Urine Specific [place] 1.015 Urine Protein Negative mg/dL (NEG-TRACE) Urine Glucose (UA) Negative mg/dL (NEG) Urine Ketones (Stick) Negative mg/dL (NEG) Urine Blood Negative (NEG) Urine Nitrite Negative (NEG) Urine Bilirubin Negative (NEG) Urine Urobilinogen Dipstick 1.0 mg/dL (0.2 mg/dL) Urine Leukocyte Esterase Negative (NEG) Urine RBC 0 /HPF (0-2) Urine WBC 0 /HPF (0-4) Urine Squamous Epithelial Cells Few /LPF Urine Bacteria 0 /HPF (0-FEW) Prothrombin Time 14.4 SEC (11.7-14.0) Prothromb Time International Ratio 1.2 (0.8-1.1) Activated Partial Thromboplast Time 32 SEC (24-38) Test 08/03/16 07:25 White Blood Count 11.3 x10^3/uL (4.0-11.0) Red Blood Count 4.29 x10^6/uL (4.30-5.70) Hemoglobin 12.4 g/dL (13.0-17.5) Hematocrit 38.4 % (39.0-53.0) Mean Corpuscular Volume 89 fL (79-100) Mean Corpuscular Hemoglobin 29 pg (25-35) Mean Corpuscular Hemoglobin Concent 32 g/dL (31-37) Red Cell Distribution Width 15.5 % (11.5-14.5) Platelet Count 186 x10^3/uL (140-400) Neutrophils (%) (Auto) 77 % (31-73) Lymphocytes (%) (Auto) 12 % (24-48) Monocytes (%) (Auto) 8 % (0-9) Eosinophils (%) (Auto) 2 % (0-3) Basophils (%) (Auto) 1 % (0-3) Neutrophils # (Auto) 8.7 x10^3uL (1.8-7.7) Lymphocytes # (Auto) 1.4 x10^3/uL (1.0-4.8) Monocytes # (Auto) 1.0 x10^3/uL (0.0-1.1) Eosinophils # (Auto) 0.3 x10^3/uL (0.0-0.7) Basophils # (Auto) 0.1 x10^3/uL (0.0-0.2) Heparin Anti-Xa Act, Unfractionated 0.44 IU/mL (0.30-0.70) Sodium Level 137 mmol/L (136-145) Potassium Level 4.2 mmol/L (3.5-5.1) Chloride Level 102 mmol/L (98-107) Carbon Dioxide Level 20 mmol/L (21-32) Anion Gap 15 (6-14) Blood Urea Nitrogen 21 mg/dL (8-26) Creatinine 1.1 mg/dL (0.7-1.3) Estimated GFR (Cockcroft-Gault) 64.1 Glucose Level 171 mg/dL (70-99) Calcium Level 9.2 mg/dL (8.5-10.1) Magnesium Level 1.8 mg/dL (1.8-2.4) Troponin I Quantitative 0.624 ng/mL (0.000-0.055) Thyroid Stimulating Hormone (TSH) 4.944 uIU/mL (0.358-3.74) Medications Current Medications Aspirin (Ecotrin) 325 mg [id number] PO Last administered on 08/02/16 14:45; Start 08/02/16 at 14:00 Atorvastatin Calcium (Lipitor) 40 mg QHS PO Last administered on 08/02/16 20: 46; Start 08/02/16 at 21:00 Clopidogrel Bisulfate (Plavix) 75 mg DAILYWBKFT PO Last administered on 14:45; Start 08/02/16 at 14:00 Midodrine (Proamatine) 10 mg [id number] PO ; Start 08/02/16 at 14:00 Pantoprazole Sodium (Protonix) 40 mg DAILYAC PO Last administered on 08/03/16 09:02; Start 08/02/16 at 14:00 Sodium Chloride 500 ml @ 500 mls/hr 1X ONCE IV Last administered on 14:45; Start 08/02/16 at 14:00; Stop 08/02/16 at 14:59; Status DC Acetaminophen (Tylenol) 325 mg PRN Q6HRS PRN PO MILD PAIN / TEMP Last administered on 08/03/16 09:02; Start 08/02/16 at 14:45 Acetaminophen/ Hydrocodone Bitart (Lortab 5/325) 1 tab PRN Q6HRS PRN PO MODERATE TO SEVERE PAIN; Start 08/02/16 at 14:45 Hydralazine HCl (Apresoline) 10 mg PRN Q4HRS PRN IVP ELEVATED BP, SEE COMMENTS Last administered on 08/03/16 09:05; Start 08/02/16 at 14:45 Ondansetron HCl (Zofran) 4 mg PRN Q8HRS PRN IV NAUSEA/VOMITING; Start 08/02/16 at 14:45 Albuterol Sulfate (Ventolin Neb Soln) 2.5 mg PRN Q4HRS PRN NEB SHORTNESS OF BREATH; Start 08/02/16 at 14:45 Amiodarone HCl 900 mg/Dextrose 518 ml @ 0 mls/hr CONT PRN IV SEE I/O RECORD Last administered on 08/03/16 04:59; Start 08/02/16 at 14:45; Stop 08/03/16 at 05:00; Status DC Heparin Sodium (Porcine) (Heparin Sodium) 4,000 unit 1X ONCE IV Last administered on 08/03/16 00:55; Start 08/03/16 at 00:30; Stop 08/03/16 at 00:31 ; Status DC Heparin Sodium/ Dextrose 500 ml @ 0 mls/hr CONT PRN IV SEE I/O RECORD Last administered on 08/03/16 01:05; Start 08/03/16 at 00:30 Heparin Sodium (Porcine) (Heparin Sodium) 2,350 unit PRN Q6HRS PRN IV FOR UFH LEVEL LESS THAN 0.2; Start 08/03/16 at 00:30 Sodium Chloride 1,000 ml @ 75 mls/hr [id number] IV Last administered on 11:43; Start 08/03/16 at 11:43 Active Scripts Active Aspirin Ec (Aspirin) 325 Mg Tablet. 1 Tab PO DAILY Reported Metformin Hcl 1,000 Mg Tablet 0.5 Tab PO BIDAC Midodrine Hcl 10 Mg Tablet 10 Mg PO TID Omeprazole 40 Mg Capsule. 40 Mg PO DAILY Clopidogrel (Clopidogrel Bisulfate) 75 Mg Tablet 1 Tab PO DAILY Atorvastatin Calcium 40 Mg Tablet 1 Tab PO QHS Vitals/I & O Vital Sign - Last 24 Hours 5/22/17 5/22/17 5/22/17 5/22/17 13:30 14:00 14:00 14:30 Pulse 74 76 76 80 Resp 20 15 16 B/P (MAP) 132/89 (103) 150/80 143/86 (105) 150/80 (103) Pulse Ox 98 95 95 O2 Delivery Room Air Room Air Room Air 08/02/16 08/02/16 08/02/16 08/02/16 15:00 15:30 16:00 16:00 Temp 98.0 98.0 Pulse 80 82 74 Resp 17 22 20 B/P (MAP) 125/71 (89) 119/67 (84) 124/85 (98) Pulse Ox 95 97 96 O2 Delivery Room Air Room Air Room Air Room Air 08/02/16 08/02/16 08/02/16 08/02/16 16:30 17:41 19:35 20:00 Temp 98.5 98.5 Pulse 74 84 80 Resp 17 18 B/P (MAP) 140/89 (106) 166/93 169/93 (118) Pulse Ox 96 94 O2 Delivery Room Air Room Air Room Air 08/02/16 08/02/16 08/03/16 08/03/16 22:45 23:14 00:43 02:55 Temp 98.5 98.9 98.5 98.9 Pulse 84 84 86 Resp 18 20 B/P (MAP) 189/111 (137) 189/111 178/88 (118) 169/77 (107) Pulse Ox 93 94 O2 Delivery Room Air Room Air 08/03/16 08/03/16 08/03/16 08:08 09:05 10:59 Temp 98.2 98.7 98.2 98.7 Pulse 81 81 81 Resp 19 20 B/P (MAP) 186/91 (122) 186/91 131/72 (91) Pulse Ox 96 94 O2 Delivery Room Air Room Air Intake and Output 08/02/16 08/02/16 08/03/16 15:00 23:00 07:00 Intake Total 1265 ml 641 ml Output Total 300 ml 800 ml 1250 ml Balance -300 ml 465 ml -609 ml ROSSY GRAMAJO MD August 03, 2016 13:15
[2016-08-03] MEDS ORDERED: fentaNYL PF VIAL 100 MCG/2 ML VIAL ONE (13:43)
[2016-08-03] MEDS ORDERED: MIDAZOLAM HCL/PF 2 MG/2 ML VIAL. ONE (13:43)
[2016-08-03] MEDS ORDERED: fentaNYL PF VIAL 100 MCG/2 ML VIAL IV ONE (14:15)
[2016-08-03] MEDS ORDERED: LIDOCAINE 2% 20 ML VIAL. IJ ONE (14:15)
[2016-08-03] MEDS ORDERED: IOHEXOL 300 MG/ML 100ML VIAL. IART ONE (14:15)
[2016-08-03] MEDS ORDERED: MIDAZOLAM HCL/PF 2 MG/2 ML VIAL. IV ONE (14:15)
[2016-08-03] MEDS ORDERED: CONTRAST GIVEN MC PRN (14:15)
--- NOTE | 2016-08-03 15:59 | PDOC ---
PULMONARY PROGRESS NOTES Vitals Vital Signs Date Time Temp Pulse Resp B/P (MAP) Pulse Ox O2 Delivery O2 Flow Rate FiO2 08/03/16 15:30 79 164/91 (115) 08/03/16 14:29 14 97 Nasal Cannula 2.0 08/03/16 10:59 98.7 98.7 Lungs: Clear Cardiovascular: S1, S2 Abdomen: Soft, Non-tender Extremities: No Edema Labs Laboratory Tests Test 08/02/16 13:50 08/02/16 20:25 08/02/16 22:30 08/03/16 00:40 Nasal Screen MRSA (PCR) Negative (Negative) Troponin I Quantitative 1.129 ng/mL (0.000-0.055) Urine Collection Type Unknown Urine Color Yellow Urine Clarity Clear Urine pH 5.5 Urine Specific [place] 1.015 Urine Protein Negative mg/dL (NEG-TRACE) Urine Glucose (UA) Negative mg/dL (NEG) Urine Ketones (Stick) Negative mg/dL (NEG) Urine Blood Negative (NEG) Urine Nitrite Negative (NEG) Urine Bilirubin Negative (NEG) Urine Urobilinogen Dipstick 1.0 mg/dL (0.2 mg/dL) Urine Leukocyte Esterase Negative (NEG) Urine RBC 0 /HPF (0-2) Urine WBC 0 /HPF (0-4) Urine Squamous Epithelial Cells Few /LPF Urine Bacteria 0 /HPF (0-FEW) Prothrombin Time 14.4 SEC (11.7-14.0) Prothromb Time International Ratio 1.2 (0.8-1.1) Activated Partial Thromboplast Time 32 SEC (24-38) Test 08/03/16 07:25 08/03/16 12:50 White Blood Count 11.3 x10^3/uL (4.0-11.0) Red Blood Count 4.29 x10^6/uL (4.30-5.70) Hemoglobin 12.4 g/dL (13.0-17.5) Hematocrit 38.4 % (39.0-53.0) Mean Corpuscular Volume 89 fL (79-100) Mean Corpuscular Hemoglobin 29 pg (25-35) Mean Corpuscular Hemoglobin Concent 32 g/dL (31-37) Red Cell Distribution Width 15.5 % (11.5-14.5) Platelet Count 186 x10^3/uL (140-400) Neutrophils (%) (Auto) 77 % (31-73) Lymphocytes (%) (Auto) 12 % (24-48) Monocytes (%) (Auto) 8 % (0-9) Eosinophils (%) (Auto) 2 % (0-3) Basophils (%) (Auto) 1 % (0-3) Neutrophils # (Auto) 8.7 x10^3uL (1.8-7.7) Lymphocytes # (Auto) 1.4 x10^3/uL (1.0-4.8) Monocytes # (Auto) 1.0 x10^3/uL (0.0-1.1) Eosinophils # (Auto) 0.3 x10^3/uL (0.0-0.7) Basophils # (Auto) 0.1 x10^3/uL (0.0-0.2) Heparin Anti-Xa Act, Unfractionated 0.44 IU/mL (0.30-0.70) Sodium Level 137 mmol/L (136-145) Potassium Level 4.2 mmol/L (3.5-5.1) Chloride Level 102 mmol/L (98-107) Carbon Dioxide Level 20 mmol/L (21-32) Anion Gap 15 (6-14) Blood Urea Nitrogen 21 mg/dL (8-26) Creatinine 1.1 mg/dL (0.7-1.3) Estimated GFR (Cockcroft-Gault) 64.1 Glucose Level 171 mg/dL (70-99) Calcium Level 9.2 mg/dL (8.5-10.1) Magnesium Level 1.8 mg/dL (1.8-2.4) Troponin I Quantitative 0.624 ng/mL (0.000-0.055) Thyroid Stimulating Hormone (TSH) 4.944 uIU/mL (0.358-3.74) Free Thyroxine 0.96 ng/dL (0.76-1.46) Laboratory Tests Test 08/02/16 20:25 08/02/16 22:30 08/03/16 00:40 08/03/16 07:25 Troponin I Quantitative 1.129 ng/mL (0.000-0.055) 0.624 ng/mL (0.000-0.055) Urine Collection Type Unknown Urine Color Yellow Urine Clarity Clear Urine pH 5.5 Urine Specific [place] 1.015 Urine Protein Negative mg/dL (NEG-TRACE) Urine Glucose (UA) Negative mg/dL (NEG) Urine Ketones (Stick) Negative mg/dL (NEG) Urine Blood Negative (NEG) Urine Nitrite Negative (NEG) Urine Bilirubin Negative (NEG) Urine Urobilinogen Dipstick 1.0 mg/dL (0.2 mg/dL) Urine Leukocyte Esterase Negative (NEG) Urine RBC 0 /HPF (0-2) Urine WBC 0 /HPF (0-4) Urine Squamous Epithelial Cells Few /LPF Urine Bacteria 0 /HPF (0-FEW) Prothrombin Time 14.4 SEC (11.7-14.0) Prothromb Time International Ratio 1.2 (0.8-1.1) Activated Partial Thromboplast Time 32 SEC (24-38) White Blood Count 11.3 x10^3/uL (4.0-11.0) Red Blood Count 4.29 x10^6/uL (4.30-5.70) Hemoglobin 12.4 g/dL (13.0-17.5) Hematocrit 38.4 % (39.0-53.0) Mean Corpuscular Volume 89 fL (79-100) Mean Corpuscular Hemoglobin 29 pg (25-35) Mean Corpuscular Hemoglobin Concent 32 g/dL (31-37) Red Cell Distribution Width 15.5 % (11.5-14.5) Platelet Count 186 x10^3/uL (140-400) Neutrophils (%) (Auto) 77 % (31-73) Lymphocytes (%) (Auto) 12 % (24-48) Monocytes (%) (Auto) 8 % (0-9) Eosinophils (%) (Auto) 2 % (0-3) Basophils (%) (Auto) 1 % (0-3) Neutrophils # (Auto) 8.7 x10^3uL (1.8-7.7) Lymphocytes # (Auto) 1.4 x10^3/uL (1.0-4.8) Monocytes # (Auto) 1.0 x10^3/uL (0.0-1.1) Eosinophils # (Auto) 0.3 x10^3/uL (0.0-0.7) Basophils # (Auto) 0.1 x10^3/uL (0.0-0.2) Heparin Anti-Xa Act, Unfractionated 0.44 IU/mL (0.30-0.70) Sodium Level 137 mmol/L (136-145) Potassium Level 4.2 mmol/L (3.5-5.1) Chloride Level 102 mmol/L (98-107) Carbon Dioxide Level 20 mmol/L (21-32) Anion Gap 15 (6-14) Blood Urea Nitrogen 21 mg/dL (8-26) Creatinine 1.1 mg/dL (0.7-1.3) Estimated GFR (Cockcroft-Gault) 64.1 Glucose Level 171 mg/dL (70-99) Calcium Level 9.2 mg/dL (8.5-10.1) Magnesium Level 1.8 mg/dL (1.8-2.4) Thyroid Stimulating Hormone (TSH) 4.944 uIU/mL (0.358-3.74) Test 08/03/16 12:50 Free Thyroxine 0.96 ng/dL (0.76-1.46) Medications Active Scripts Medications Dose Route/Sig Max Daily Dose Days Date Category Metformin Hcl 1,000 Mg Tablet 0.5 Tab PO BIDAC 08/02/16 Reported Aspirin Ec (Aspirin) 325 Mg Tablet.dr 1 Tab PO DAILY 07/10/16 Rx Midodrine Hcl 10 Mg Tablet 10 Mg PO TID 07/09/16 Reported Omeprazole 40 Mg Capsule.dr 40 Mg PO DAILY 03/02/16 Reported Clopidogrel (Clopidogrel Bisulfate) 75 Mg Tablet 1 Tab PO DAILY 03/02/16 Reported Atorvastatin Calcium 40 Mg Tablet 1 Tab PO QHS 03/02/16 Reported Impression . full consult dictated No contraindication to utilizing Amiodarone will obtain PFT Thanks CHETAN RIVERA MD August 03, 2016 15:59
[2016-08-03] MEDS: ATORVASTATIN CALCIUM 40 MG TABLET. PO SCH (20:00)
[2016-08-03] MEDS: AMIODARONE HCL 200 MG TABLET. PO SCH (20:02)
[2016-08-04] VITALS (7 sets, daily range): BP systolic 83–188; BP diastolic 52–95
[2016-08-04 03:06] LABS: BASO # 0.1 x10^3/uL (0.0-0.2); BASO % 1 % (0-3); EOS % 1 % (0-3); HEMATOCRIT 36.7 % (39.0-53.0); HEMOGLOBIN 12.1 g/dL (13.0-17.5); LYMPH # 0.8 x10^3/uL (1.0-4.8); LYMPH % 7 % (24-48); MEAN CORPUSCULAR HEMOGLOBIN 29 pg (25-35); MEAN CORPUSCULAR HGB CONC 33 g/dL (31-37); MEAN CORPUSCULAR VOLUME 88 fL (79-100); MONO % 8 % (0-9); NEUT % 84 % (31-73); PLATELET COUNT 187 x10^3/uL (140-400); RED BLOOD COUNT 4.16 x10^6/uL (4.30-5.70); RED CELL DISTRIBUTION WIDTH 15.4 % (11.5-14.5); WHITE BLOOD COUNT 11.5 x10^3/uL (4.0-11.0)
[2016-08-04 03:18] LABS: CALCIUM 8.7 mg/dL (8.5-10.1); CREATININE 1.2 mg/dL (0.7-1.3); POTASSIUM 4.2 mmol/L (3.5-5.1)
[2016-08-04] MEDS: hydrALAZINE 20 MG/ML VIAL. IVP PRN (04:07)
--- NOTE | 2016-08-04 04:51 | CONS ---
DATE OF CONSULTATION: 08/03/2016 ATTENDING PHYSICIAN: Jose Suero MD CONSULTING PHYSICIAN: Chetan Sarkra MD REASON FOR CONSULTATION: The patient seen in pulmonary consultation at the request of Cardiology for the possibility of utilizing amiodarone and underlying COPD. HISTORY OF PRESENT ILLNESS: The patient came in with rapid heart rate. He felt that his heart rate was elevated. He had palpitation, chest pressures and some shortness of breath. He was found to be in SVT, was given amiodarone, started on amiodarone drip. I was consulted as a consequence of his underlying ____ COPD and amiodarone use. The patient denies fever, chills or productive cough. He actually underwent a cardiac catheterization today revealing no evidence of new disease. PAST MEDICAL HISTORY: 1. Recent coronary artery disease, status post bypass x 2 in 02/2016. He subsequently had PCI and stent, the last one to the RCA. 2. Chronic obstructive pulmonary disease. 3. Pulmonary embolism with a history of DVT. 4. Chronic paroxysmal atrial fibrillation. 5. Hypertension. 6. Hyperlipidemia. 7. Osteoarthritis. 8. BPH. PAST SURGICAL HISTORY: As above. ALLERGIES: No known drug allergies. SOCIAL HISTORY: Remote history of tobacco. No history of alcoholism. HOME MEDICATIONS: List was reviewed. REVIEW OF SYSTEMS: As indicated above, otherwise, a 10-point system was reviewed and negative. PHYSICAL EXAMINATION: GENERAL: The patient was in no respiratory distress. VITAL SIGNS: Stable. O2 saturation greater than 92%, currently on 2 liters. HEENT: Eyes, the sclerae were nonicteric. NECK: Jugular venous distention was not elevated. No lymphadenopathy. CHEST: Full expansion. LUNGS: Adequate airway flow with no wheezes. CARDIOVASCULAR: Regular rate and rhythm with S1, S2, no S3. ABDOMEN: Soft, nontender, and nondistended. EXTREMITIES: No clubbing, cyanosis or edema. NEUROLOGIC: The patient was awake, alert, following commands. A detailed neuro exam was not performed. Chest x-ray was reviewed, no acute cardiopulmonary process. LABORATORY DATA: Reviewed. White count was slightly elevated. Electrolytes were noted. UA was noted. IMPRESSION: 1. Acute onset of respiratory distress secondary to supraventricular tachycardia. 2. Coronary artery disease status post coronary artery bypass grafting in 02/2016 with subsequent PCI to the RCA in 06/2016. 3. Chronic obstructive pulmonary disease. 4. Hypertension. 5. Paroxysmal atrial fibrillation. 6. Pulmonary embolism. 7. Deep venous thrombosis. PLAN: 1. From a pulmonary standpoint of view, I do not see any contraindication in utilizing amiodarone. 2. We will check baseline pulmonary function testing. 3. Monitor PFTs on a yearly basis. 4. Continue current medical regimen. I do appreciate the privilege in sharing in the patient's care. CHETAN SARKAR MD DR: ALIN/jacinto JOB#: [id number] / [id number]
[2016-08-04] MEDS: MIDODRINE 5 MG TABLET PO SCH ×2 (07:00→12:19)
[2016-08-04] MEDS: PANTOPRAZOLE 40 MG TABLET.DR. PO SCH (08:37)
[2016-08-04] MEDS: ASPIRIN ENTERIC COATED 325 MG TABLET.DR. PO SCH (08:37)
[2016-08-04] MEDS: CLOPIDOGREL BISULFATE 75 MG TABLET PO SCH (08:38)
[2016-08-04] MEDS: AMIODARONE HCL 200 MG TABLET. PO SCH ×2 (08:39→17:02)
--- NOTE | 2016-08-04 10:45 | PDOC ---
LULU BLEVINS ABLE BODIED WATCHMAN 08/04/16 1045: CARDIO Progress Notes Date and Time Date of Service 08/04/2016 Time of Evaluation 1045 Subjective Subjective: No Chest Pain, No Palpitations, No Dizziness Vitals Vitals Vital Signs Date Time Temp Pulse Resp B/P (MAP) Pulse Ox O2 Delivery O2 Flow Rate FiO2 08/04/16 08:39 99 159/78 08/04/16 02:35 98.0 18 94 Room Air 98.0 08/03/16 14:29 2.0 Weight Weight [ ] Stability Assessment Stability Assess.: other (agreeable with discharge) Input and Output Intake and Output Intake and Output 08/04/16 07:00 Intake Total 1290 ml Output Total 2325 ml Balance -1035 ml Intake Oral 540 ml IV Total 750 ml Output Urine Total 2325 ml # Voids 1 Laboratory Labs Laboratory Tests Test 08/03/16 12:50 08/04/16 02:40 Free Thyroxine 0.96 ng/dL (0.76-1.46) White Blood Count 11.5 x10^3/uL (4.0-11.0) Red Blood Count 4.16 x10^6/uL (4.30-5.70) Hemoglobin 12.1 g/dL (13.0-17.5) Hematocrit 36.7 % (39.0-53.0) Mean Corpuscular Volume 88 fL (79-100) Mean Corpuscular Hemoglobin 29 pg (25-35) Mean Corpuscular Hemoglobin Concent 33 g/dL (31-37) Red Cell Distribution Width 15.4 % (11.5-14.5) Platelet Count 187 x10^3/uL (140-400) Neutrophils (%) (Auto) 84 % (31-73) Lymphocytes (%) (Auto) 7 % (24-48) Monocytes (%) (Auto) 8 % (0-9) Eosinophils (%) (Auto) 1 % (0-3) Basophils (%) (Auto) 1 % (0-3) Neutrophils # (Auto) 9.6 x10^3uL (1.8-7.7) Lymphocytes # (Auto) 0.8 x10^3/uL (1.0-4.8) Monocytes # (Auto) 0.9 x10^3/uL (0.0-1.1) Eosinophils # (Auto) 0.1 x10^3/uL (0.0-0.7) Basophils # (Auto) 0.1 x10^3/uL (0.0-0.2) Sodium Level 138 mmol/L (136-145) Potassium Level 4.2 mmol/L (3.5-5.1) Chloride Level 105 mmol/L (98-107) Carbon Dioxide Level 21 mmol/L (21-32) Anion Gap 12 (6-14) Blood Urea Nitrogen 18 mg/dL (8-26) Creatinine 1.2 mg/dL (0.7-1.3) Estimated GFR (Cockcroft-Gault) 58.0 Glucose Level 176 mg/dL (70-99) Calcium Level 8.7 mg/dL (8.5-10.1) Physical Exam HEENT: Neck Supple W Full Motion Chest: Symmetric LUNGS: Clear to Auscultation Heart: S1S2, RRR, no murmurs, other (TELE: SR) Extremities: No Edema Neurology: alert, oriented, follow commands Assessment Assessment 1. SVT with LBBB configuration QTC ABOUT 520 MSEC REMAINS NSR MILDLY ELEVATED TSH HISTORY OF PAF - OFF RATE CONTROLLING AGENTS - ? when OAC DISCONTINUED IV amiodarone converted to oral 200 mg BID - will need to monitor TSH as outpatient event monitor X 2 weeks at discharge then office f/u no OAC for now as not a suitable candidate for triple therapy 2. NSTEMI cardiac cath 08/03/2016 - stent and grafts remain patent patient and advised this a.m. CP on awakening is not cardiac related continue DAPT X 1 year if tolerated as BARTOLO 06/2106 3. ORTHOSTASIS resolved; off midodrine since admission pt now well hydrated and increasing p.o. fluids/food at home discussed with pt and now mildly hypertensive 4. HLD CONTINUE STATIN THERAPY 5. THYROID DISEASE TSH MILDLY ELEVATED DEFER TO PRIMARY SERVICE Would benefit from home health nurse to ascertain he is taking meds as prescribed RICK FINK MD 08/04/16 2362: CARDIO Progress Notes Assessment Assessment Patient seen and examined. Agree with GLASS MECHANIC's assessment and plan. No further arrhythmias noted on telemetry. CAD status stable. Continue current medications including amiodarone. Plan for event monitor as an outpatient. LULU BLEVINS [employer] BODIED WATCHMAN August 04, 2016 10:45 RICK FINK MD August 04, 2016 15:42
--- NOTE | 2016-08-04 11:45 | CARD ---
APPROVED REPORT Procedure(s) performed: Left Heart Catheterization, Coronary angiography, Left ventriculogram and byp ass angiography. HISTORY diabetes mellitus with oral treatment: chronic lung disease, previous PCI (The PCI date was 07/09/16), hypertension, dyslipidemia. INDICATION The indication(s) include : non-STEMI , Trop of 1.8 in the setting of chest pain and recent PCI. . CASE TECHNIQUE During this case, Fluoroscopy and low osmolar contrast were used for imaging. PROCEDURE NARRATIVE The patient was brought electively to the cardiac catheterization lab. A timeout was performed confi rming the patient's name, date of , procedure, and site of procedure. All necessary personnel w ere wearing the appropriate protective equipment and radiation monitor devices. After explaining the risks and benefits of the procedure and alternatives, informed consent was obtained. (See nursing no briana for medications administered). The right groin was sterilely prepped and draped in the usual fas hion. The right groin was infiltrated with 7 mL of 2% lidocaine for subcutaneous anesthesia. A 6 F sheath was inserted into the right femoral artery without difficulty. Right and left coronary angiog gely was performed using a JL4 and JR4 catheter. Left ventricular end diastolic pressure was obtain ed with a pigtail catheter and pullback was performed after left ventriculography. Bypass angiograph y was performed with an SHIRA and JR4 catheter. All catheter exchanges and advancements were performed over a guidewire. At case completion the right groin sheath was removed HEMODYNAMICS: LVEDP 7 mm Hg No gradient on LV to aortic pullback. LEFT VENTRICULOGRAM: EF 55% Anterobasal: Normal. Anterolateral: Normal Apical: Normal Diaphragmatic: Normal Posterobasal: Normal CORONARY ANGIOGRAPHY: LM is a large caliber vessel with a distal 20% stenosis. LAD is a large caliber vessel with an ostial 80% stenosis followed by a mid patent stent. The distal vessel fills via a patent GONSALES graft. D1 is a moderate caliber vessel with a patent stent and a proximal 80% stenosis. The distal vessel fi lls via a patent vein graft. LCx is a moderate caliber non-dominant vessel with normal angiographic appearance. OM1 is a moderate caliber vessel with normal angiographic appearance. RCA is a large caliber dominant vessel with a patent ostia/proximal stent with mild luminal irregular ities in the mid segment of up to 20%. RPDA and RPL are moderate caliber vessels with normal angiographic appearance. BYPASS ANGIOGRAPHY: GONSALES to LAD widely patent without anastomotic stenosis. SVG to D1 widely patent without anastomotic stenosis. There is a significant vessel size mismatch bet ween the graft and [place] vessel. Conclusion 1. Patent RCA stent. 2. Patent grafts. 3. No significant change compared to 1 month ago. 4. Normal LV Function. EF 55%. Recommendations Aggressive Medical Therapy
--- NOTE | 2016-08-04 12:07 | PDOC ---
PULMONARY PROGRESS NOTES Subjective pt not more soa wants to go home Vitals Vital Signs Date Time Temp Pulse Resp B/P (MAP) Pulse Ox O2 Delivery O2 Flow Rate FiO2 08/04/16 08:39 99 159/78 08/04/16 02:35 98.0 18 94 Room Air 98.0 08/03/16 14:29 2.0 ROS: No Nausea, No Chest Pain, No Abdominal Pain, No Increase Cough Lungs: Clear Cardiovascular: S1, S2 Abdomen: Soft, Non-tender Neuro Exam: Alert Extremities: No Edema Skin: Warm Labs Laboratory Tests Test 08/02/16 13:50 08/02/16 20:25 08/02/16 22:30 08/03/16 00:40 Nasal Screen MRSA (PCR) Negative (Negative) Troponin I Quantitative 1.129 ng/mL (0.000-0.055) Urine Collection Type Unknown Urine Color Yellow Urine Clarity Clear Urine pH 5.5 Urine Specific Gray 1.015 Urine Protein Negative mg/dL (NEG-TRACE) Urine Glucose (UA) Negative mg/dL (NEG) Urine Ketones (Stick) Negative mg/dL (NEG) Urine Blood Negative (NEG) Urine Nitrite Negative (NEG) Urine Bilirubin Negative (NEG) Urine Urobilinogen Dipstick 1.0 mg/dL (0.2 mg/dL) Urine Leukocyte Esterase Negative (NEG) Urine RBC 0 /HPF (0-2) Urine WBC 0 /HPF (0-4) Urine Squamous Epithelial Cells Few /LPF Urine Bacteria 0 /HPF (0-FEW) Prothrombin Time 14.4 SEC (11.7-14.0) Prothromb Time International Ratio 1.2 (0.8-1.1) Activated Partial Thromboplast Time 32 SEC (24-38) Test 08/03/16 07:25 08/03/16 12:50 08/04/16 02:40 White Blood Count 11.3 x10^3/uL (4.0-11.0) 11.5 x10^3/uL (4.0-11.0) Red Blood Count 4.29 x10^6/uL (4.30-5.70) 4.16 x10^6/uL (4.30-5.70) Hemoglobin 12.4 g/dL (13.0-17.5) 12.1 g/dL (13.0-17.5) Hematocrit 38.4 % (39.0-53.0) 36.7 % (39.0-53.0) Mean Corpuscular Volume 89 fL (79-100) 88 fL (79-100) Mean Corpuscular Hemoglobin 29 pg (25-35) 29 pg (25-35) Mean Corpuscular Hemoglobin Concent 32 g/dL (31-37) 33 g/dL (31-37) Red Cell Distribution Width 15.5 % (11.5-14.5) 15.4 % (11.5-14.5) Platelet Count 186 x10^3/uL (140-400) 187 x10^3/uL (140-400) Neutrophils (%) (Auto) 77 % (31-73) 84 % (31-73) Lymphocytes (%) (Auto) 12 % (24-48) 7 % (24-48) Monocytes (%) (Auto) 8 % (0-9) 8 % (0-9) Eosinophils (%) (Auto) 2 % (0-3) 1 % (0-3) Basophils (%) (Auto) 1 % (0-3) 1 % (0-3) Neutrophils # (Auto) 8.7 x10^3uL (1.8-7.7) 9.6 x10^3uL (1.8-7.7) Lymphocytes # (Auto) 1.4 x10^3/uL (1.0-4.8) 0.8 x10^3/uL (1.0-4.8) Monocytes # (Auto) 1.0 x10^3/uL (0.0-1.1) 0.9 x10^3/uL (0.0-1.1) Eosinophils # (Auto) 0.3 x10^3/uL (0.0-0.7) 0.1 x10^3/uL (0.0-0.7) Basophils # (Auto) 0.1 x10^3/uL (0.0-0.2) 0.1 x10^3/uL (0.0-0.2) Heparin Anti-Xa Act, Unfractionated 0.44 IU/mL (0.30-0.70) Sodium Level 137 mmol/L (136-145) 138 mmol/L (136-145) Potassium Level 4.2 mmol/L (3.5-5.1) 4.2 mmol/L (3.5-5.1) Chloride Level 102 mmol/L (98-107) 105 mmol/L (98-107) Carbon Dioxide Level 20 mmol/L (21-32) 21 mmol/L (21-32) Anion Gap 15 (6-14) 12 (6-14) Blood Urea Nitrogen 21 mg/dL (8-26) 18 mg/dL (8-26) Creatinine 1.1 mg/dL (0.7-1.3) 1.2 mg/dL (0.7-1.3) Estimated GFR (Cockcroft-Gault) 64.1 58.0 Glucose Level 171 mg/dL (70-99) 176 mg/dL (70-99) Calcium Level 9.2 mg/dL (8.5-10.1) 8.7 mg/dL (8.5-10.1) Magnesium Level 1.8 mg/dL (1.8-2.4) Troponin I Quantitative 0.624 ng/mL (0.000-0.055) Thyroid Stimulating Hormone (TSH) 4.944 uIU/mL (0.358-3.74) Free Thyroxine 0.96 ng/dL (0.76-1.46) Laboratory Tests Test 08/03/16 12:50 08/04/16 02:40 Free Thyroxine 0.96 ng/dL (0.76-1.46) White Blood Count 11.5 x10^3/uL (4.0-11.0) Red Blood Count 4.16 x10^6/uL (4.30-5.70) Hemoglobin 12.1 g/dL (13.0-17.5) Hematocrit 36.7 % (39.0-53.0) Mean Corpuscular Volume 88 fL (79-100) Mean Corpuscular Hemoglobin 29 pg (25-35) Mean Corpuscular Hemoglobin Concent 33 g/dL (31-37) Red Cell Distribution Width 15.4 % (11.5-14.5) Platelet Count 187 x10^3/uL (140-400) Neutrophils (%) (Auto) 84 % (31-73) Lymphocytes (%) (Auto) 7 % (24-48) Monocytes (%) (Auto) 8 % (0-9) Eosinophils (%) (Auto) 1 % (0-3) Basophils (%) (Auto) 1 % (0-3) Neutrophils # (Auto) 9.6 x10^3uL (1.8-7.7) Lymphocytes # (Auto) 0.8 x10^3/uL (1.0-4.8) Monocytes # (Auto) 0.9 x10^3/uL (0.0-1.1) Eosinophils # (Auto) 0.1 x10^3/uL (0.0-0.7) Basophils # (Auto) 0.1 x10^3/uL (0.0-0.2) Sodium Level 138 mmol/L (136-145) Potassium Level 4.2 mmol/L (3.5-5.1) Chloride Level 105 mmol/L (98-107) Carbon Dioxide Level 21 mmol/L (21-32) Anion Gap 12 (6-14) Blood Urea Nitrogen 18 mg/dL (8-26) Creatinine 1.2 mg/dL (0.7-1.3) Estimated GFR (Cockcroft-Gault) 58.0 Glucose Level 176 mg/dL (70-99) Calcium Level 8.7 mg/dL (8.5-10.1) Medications Active Scripts Medications Dose Route/Sig Max Daily Dose Days Date Category Metformin Hcl 1,000 Mg Tablet 0.5 Tab PO BIDAC 08/02/16 Reported Aspirin Ec (Aspirin) 325 Mg Tablet.dr 1 Tab PO DAILY 07/10/16 Rx Midodrine Hcl 10 Mg Tablet 10 Mg PO TID 07/09/16 Reported Omeprazole 40 Mg Capsule.dr 40 Mg PO DAILY 03/02/16 Reported Clopidogrel (Clopidogrel Bisulfate) 75 Mg Tablet 1 Tab PO DAILY 03/02/16 Reported Atorvastatin Calcium 40 Mg Tablet 1 Tab PO QHS 03/02/16 Reported Impression . 1. Acute onset of respiratory distress secondary to supraventricular tachycardia. 2. Coronary artery disease status post coronary artery bypass grafting in 02/2016 with subsequent PCI to the RCA in 06/2016. 3. Chronic obstructive pulmonary disease. 4. Hypertension. 5. Paroxysmal atrial fibrillation. 6. Pulmonary embolism. 7. Deep venous thrombosis. Plan . d/c home follow up with Dr. Zaragoza 1. From a pulmonary standpoint of view, I do not see any contraindication in utilizing amiodarone. 2. mild COPD on PFT 3. Monitor PFTs on a yearly basis. 4. Continue current medical regimen. CHETAN RIVERA MD August 04, 2016 12:07
--- NOTE | 2016-08-04 12:38 | PDOC ---
PROGRESS NOTES Chief Complaint Chief Complaint 1. 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 started on amiodarione. 2. Elevated troponin:s/p left heart cardiac catheterization , patent stens, 3. Prior history of coronary artery disease and coronary artery bypass graft with recent PCI last month,: , currently on aspirin and Plavix. ? compliancy with medications at home 4. Hyperlipidemia.: stable, 5. Orthostatic hypotension, on midodrine, currently hemodynamically stable. didn't get his midodrine for last 2 days, now hypotensive with activity and Hypertensives at rest. [place] blood pressure. 6. History of chronic lymphocytic leukemia, currently stable. 7. Diabetes mellitus, on metformin. Holding metformin. 8. Paroxysmal atrial fibrillation, off heparin. 9. Deep venous thrombosis prophylaxis with Lovenox. 10. Hyperglycemia. He will be placed on sliding scale insulin. 11. Hx of Fall. History of Present Illness History of Present Illness NO CHEST PAIN ELEVATED TROPONIN Vitals Vitals Vital Signs Date Time Temp Pulse Resp B/P (MAP) Pulse Ox O2 Delivery O2 Flow Rate FiO2 08/04/16 12:19 99 132/80 08/04/16 02:35 98.0 18 94 Room Air 98.0 08/03/16 14:29 2.0 Physical Exam General: Alert, Oriented X3, Cooperative, No acute distress Heart: Regular rate, Normal S1, Normal S2, Other (no gallops, clicks or rubs) Lungs: Clear Abdomen: Normal bowel sounds, Soft, No tenderness Extremities: No clubbing, No cyanosis, No edema, Normal pulses Labs LABS Laboratory Tests Test 08/03/16 12:50 08/04/16 02:40 Free Thyroxine 0.96 ng/dL (0.76-1.46) Total Triiodothyronine 95 ng/dL (71-180) White Blood Count 11.5 x10^3/uL (4.0-11.0) Red Blood Count 4.16 x10^6/uL (4.30-5.70) Hemoglobin 12.1 g/dL (13.0-17.5) Hematocrit 36.7 % (39.0-53.0) Mean Corpuscular Volume 88 fL (79-100) Mean Corpuscular Hemoglobin 29 pg (25-35) Mean Corpuscular Hemoglobin Concent 33 g/dL (31-37) Red Cell Distribution Width 15.4 % (11.5-14.5) Platelet Count 187 x10^3/uL (140-400) Neutrophils (%) (Auto) 84 % (31-73) Lymphocytes (%) (Auto) 7 % (24-48) Monocytes (%) (Auto) 8 % (0-9) Eosinophils (%) (Auto) 1 % (0-3) Basophils (%) (Auto) 1 % (0-3) Neutrophils # (Auto) 9.6 x10^3uL (1.8-7.7) Lymphocytes # (Auto) 0.8 x10^3/uL (1.0-4.8) Monocytes # (Auto) 0.9 x10^3/uL (0.0-1.1) Eosinophils # (Auto) 0.1 x10^3/uL (0.0-0.7) Basophils # (Auto) 0.1 x10^3/uL (0.0-0.2) Sodium Level 138 mmol/L (136-145) Potassium Level 4.2 mmol/L (3.5-5.1) Chloride Level 105 mmol/L (98-107) Carbon Dioxide Level 21 mmol/L (21-32) Anion Gap 12 (6-14) Blood Urea Nitrogen 18 mg/dL (8-26) Creatinine 1.2 mg/dL (0.7-1.3) Estimated GFR (Cockcroft-Gault) 58.0 Glucose Level 176 mg/dL (70-99) Calcium Level 8.7 mg/dL (8.5-10.1) Comment Review of Relevant I have reviewed the following items samara (where applicable) has been applied. Labs Laboratory Tests Test 08/02/16 13:50 08/02/16 20:25 08/02/16 22:30 08/03/16 00:40 Nasal Screen MRSA (PCR) Negative (Negative) Troponin I Quantitative 1.129 ng/mL (0.000-0.055) Urine Collection Type Unknown Urine Color Yellow Urine Clarity Clear Urine pH 5.5 Urine Specific Brinkley 1.015 Urine Protein Negative mg/dL (NEG-TRACE) Urine Glucose (UA) Negative mg/dL (NEG) Urine Ketones (Stick) Negative mg/dL (NEG) Urine Blood Negative (NEG) Urine Nitrite Negative (NEG) Urine Bilirubin Negative (NEG) Urine Urobilinogen Dipstick 1.0 mg/dL (0.2 mg/dL) Urine Leukocyte Esterase Negative (NEG) Urine RBC 0 /HPF (0-2) Urine WBC 0 /HPF (0-4) Urine Squamous Epithelial Cells Few /LPF Urine Bacteria 0 /HPF (0-FEW) Prothrombin Time 14.4 SEC (11.7-14.0) Prothromb Time International Ratio 1.2 (0.8-1.1) Activated Partial Thromboplast Time 32 SEC (24-38) Test 08/03/16 07:25 08/03/16 12:50 08/04/16 02:40 White Blood Count 11.3 x10^3/uL (4.0-11.0) 11.5 x10^3/uL (4.0-11.0) Red Blood Count 4.29 x10^6/uL (4.30-5.70) 4.16 x10^6/uL (4.30-5.70) Hemoglobin 12.4 g/dL (13.0-17.5) 12.1 g/dL (13.0-17.5) Hematocrit 38.4 % (39.0-53.0) 36.7 % (39.0-53.0) Mean Corpuscular Volume 89 fL (79-100) 88 fL (79-100) Mean Corpuscular Hemoglobin 29 pg (25-35) 29 pg (25-35) Mean Corpuscular Hemoglobin Concent 32 g/dL (31-37) 33 g/dL (31-37) Red Cell Distribution Width 15.5 % (11.5-14.5) 15.4 % (11.5-14.5) Platelet Count 186 x10^3/uL (140-400) 187 x10^3/uL (140-400) Neutrophils (%) (Auto) 77 % (31-73) 84 % (31-73) Lymphocytes (%) (Auto) 12 % (24-48) 7 % (24-48) Monocytes (%) (Auto) 8 % (0-9) 8 % (0-9) Eosinophils (%) (Auto) 2 % (0-3) 1 % (0-3) Basophils (%) (Auto) 1 % (0-3) 1 % (0-3) Neutrophils # (Auto) 8.7 x10^3uL (1.8-7.7) 9.6 x10^3uL (1.8-7.7) Lymphocytes # (Auto) 1.4 x10^3/uL (1.0-4.8) 0.8 x10^3/uL (1.0-4.8) Monocytes # (Auto) 1.0 x10^3/uL (0.0-1.1) 0.9 x10^3/uL (0.0-1.1) Eosinophils # (Auto) 0.3 x10^3/uL (0.0-0.7) 0.1 x10^3/uL (0.0-0.7) Basophils # (Auto) 0.1 x10^3/uL (0.0-0.2) 0.1 x10^3/uL (0.0-0.2) Heparin Anti-Xa Act, Unfractionated 0.44 IU/mL (0.30-0.70) Sodium Level 137 mmol/L (136-145) 138 mmol/L (136-145) Potassium Level 4.2 mmol/L (3.5-5.1) 4.2 mmol/L (3.5-5.1) Chloride Level 102 mmol/L (98-107) 105 mmol/L (98-107) Carbon Dioxide Level 20 mmol/L (21-32) 21 mmol/L (21-32) Anion Gap 15 (6-14) 12 (6-14) Blood Urea Nitrogen 21 mg/dL (8-26) 18 mg/dL (8-26) Creatinine 1.1 mg/dL (0.7-1.3) 1.2 mg/dL (0.7-1.3) Estimated GFR (Cockcroft-Gault) 64.1 58.0 Glucose Level 171 mg/dL (70-99) 176 mg/dL (70-99) Calcium Level 9.2 mg/dL (8.5-10.1) 8.7 mg/dL (8.5-10.1) Magnesium Level 1.8 mg/dL (1.8-2.4) Troponin I Quantitative 0.624 ng/mL (0.000-0.055) Thyroid Stimulating Hormone (TSH) 4.944 uIU/mL (0.358-3.74) Free Thyroxine 0.96 ng/dL (0.76-1.46) Total Triiodothyronine 95 ng/dL (71-180) Laboratory Tests Test 08/03/16 12:50 08/04/16 02:40 Free Thyroxine 0.96 ng/dL (0.76-1.46) Total Triiodothyronine 95 ng/dL (71-180) White Blood Count 11.5 x10^3/uL (4.0-11.0) Red Blood Count 4.16 x10^6/uL (4.30-5.70) Hemoglobin 12.1 g/dL (13.0-17.5) Hematocrit 36.7 % (39.0-53.0) Mean Corpuscular Volume 88 fL (79-100) Mean Corpuscular Hemoglobin 29 pg (25-35) Mean Corpuscular Hemoglobin Concent 33 g/dL (31-37) Red Cell Distribution Width 15.4 % (11.5-14.5) Platelet Count 187 x10^3/uL (140-400) Neutrophils (%) (Auto) 84 % (31-73) Lymphocytes (%) (Auto) 7 % (24-48) Monocytes (%) (Auto) 8 % (0-9) Eosinophils (%) (Auto) 1 % (0-3) Basophils (%) (Auto) 1 % (0-3) Neutrophils # (Auto) 9.6 x10^3uL (1.8-7.7) Lymphocytes # (Auto) 0.8 x10^3/uL (1.0-4.8) Monocytes # (Auto) 0.9 x10^3/uL (0.0-1.1) Eosinophils # (Auto) 0.1 x10^3/uL (0.0-0.7) Basophils # (Auto) 0.1 x10^3/uL (0.0-0.2) Sodium Level 138 mmol/L (136-145) Potassium Level 4.2 mmol/L (3.5-5.1) Chloride Level 105 mmol/L (98-107) Carbon Dioxide Level 21 mmol/L (21-32) Anion Gap 12 (6-14) Blood Urea Nitrogen 18 mg/dL (8-26) Creatinine 1.2 mg/dL (0.7-1.3) Estimated GFR (Cockcroft-Gault) 58.0 Glucose Level 176 mg/dL (70-99) Calcium Level 8.7 mg/dL (8.5-10.1) Medications Current Medications Aspirin (Ecotrin) 325 mg DAILYWBKFT PO Last administered on 08/04/16 08:37; Start 08/02/16 at 14:00 Atorvastatin Calcium (Lipitor) 40 mg QHS PO Last administered on 08/03/16 20: 00; Start 08/02/16 at 21:00 Clopidogrel Bisulfate (Plavix) 75 mg DAILYWBKFT PO Last administered on 08:38; Start 08/02/16 at 14:00 Midodrine (Proamatine) 10 mg [id number] PO ; Start 08/02/16 at 14:00 Pantoprazole Sodium (Protonix) 40 mg DAILYAC PO Last administered on 08/04/16 08:37; Start 08/02/16 at 14:00 Sodium Chloride 500 ml @ 500 mls/hr 1X ONCE IV Last administered on 14:45; Start 08/02/16 at 14:00; Stop 08/02/16 at 14:59; Status DC Acetaminophen (Tylenol) 325 mg PRN Q6HRS PRN PO MILD PAIN / TEMP Last administered on 08/03/16 09:02; Start 08/02/16 at 14:45 Acetaminophen/ Hydrocodone Bitart (Lortab 5/325) 1 tab PRN Q6HRS PRN PO MODERATE TO SEVERE PAIN; Start 08/02/16 at 14:45 Hydralazine HCl (Apresoline) 10 mg PRN Q4HRS PRN IVP ELEVATED BP, SEE COMMENTS Last administered on 08/04/16 04:07; Start 08/02/16 at 14:45 Ondansetron HCl (Zofran) 4 mg PRN Q8HRS PRN IV NAUSEA/VOMITING Last administered on 08/04/16 05:47; Start 08/02/16 at 14:45 Albuterol Sulfate (Ventolin Neb Soln) 2.5 mg PRN Q4HRS PRN NEB SHORTNESS OF BREATH; Start 08/02/16 at 14:45 Amiodarone HCl 900 mg/Dextrose 518 ml @ 0 mls/hr CONT PRN IV SEE I/O RECORD Last administered on 08/03/16 04:59; Start 08/02/16 at 14:45; Stop 08/03/16 at 05:00; Status DC Heparin Sodium (Porcine) (Heparin Sodium) 4,000 unit 1X ONCE IV Last administered on 08/03/16 00:55; Start 08/03/16 at 00:30; Stop 08/03/16 at 00:31 ; Status DC Heparin Sodium/ Dextrose 500 ml @ 0 mls/hr CONT PRN IV SEE I/O RECORD Last administered on 08/03/16 01:05; Start 08/03/16 at 00:30; Stop 08/04/16 at 08:26 ; Status DC Heparin Sodium (Porcine) (Heparin Sodium) 2,350 unit PRN Q6HRS PRN IV FOR UFH LEVEL LESS THAN 0.2; Start 08/03/16 at 00:30; Stop 08/04/16 at 08:26; Status DC Sodium Chloride 1,000 ml @ 75 mls/hr [id number] IV Last administered on 19:59; Start 08/03/16 at 11:43; Stop 08/04/16 at 08:26; Status DC Iohexol (Omnipaque 300 Mg/ml) 100 ml STK-MED ONCE .ROUTE ; Start 08/03/16 at 13: 13; Stop 08/03/16 at 13:14; Status DC Heparin Sodium/ Sodium Chloride 1,000 ml @ As Directed STK-MED ONCE .ROUTE ; Start 08/03/16 at 13:13; Stop 08/03/16 at 13:14; Status DC Lidocaine HCl 20 ml STK-MED ONCE .ROUTE ; Start 08/03/16 at 13:13; Stop at 13:14; Status DC Midazolam HCl (Versed) 2 mg STK-MED ONCE .ROUTE ; Start 08/03/16 at 13:43; Stop 08/03/16 at 13:44; Status DC Fentanyl Citrate (Fentanyl 2ml Vial) 100 mcg STK-MED ONCE .ROUTE ; Start at 13:43; Stop 08/03/16 at 13:44; Status DC Heparin Sodium/ Sodium Chloride 1,000 unit 1X ONCE IART Last administered on 14:27; Start 08/03/16 at 14:15; Stop 08/03/16 at 14:16; Status DC Midazolam HCl (Versed) 2 mg 1X ONCE IV Last administered on 08/03/16 14:28; Start 08/03/16 at 14:15; Stop 08/03/16 at 14:16; Status DC Fentanyl Citrate (Fentanyl 2ml Vial) 100 mcg 1X ONCE IV Last administered on 14:28; Start 08/03/16 at 14:15; Stop 08/03/16 at 14:16; Status DC Iohexol (Omnipaque 300 Mg/ml) 100 ml 1X ONCE IART Last administered on 14:27; Start 08/03/16 at 14:15; Stop 08/03/16 at 14:16; Status DC Lidocaine HCl 20 ml 1X ONCE IJ Last administered on 08/03/16 14:28; Start at 14:15; Stop 08/03/16 at 14:16; Status DC Info (Do NOT chart on this entry -- for MONITORING) 1 each PRN DAILY PRN MC SEE COMMENTS; Start 08/03/16 at 14:15; Stop 08/05/16 at 14:14 Amiodarone HCl (Cordarone) 200 mg BID PO Last administered on 08/04/16 08:39; Start 08/03/16 at 21:00 Active Scripts Active Aspirin Ec (Aspirin) 325 Mg Tablet. 1 Tab PO DAILY Reported Metformin Hcl 1,000 Mg Tablet 0.5 Tab PO BIDAC Midodrine Hcl 10 Mg Tablet 10 Mg PO TID Omeprazole 40 Mg Capsule. 40 Mg PO DAILY Clopidogrel (Clopidogrel Bisulfate) 75 Mg Tablet 1 Tab PO DAILY Atorvastatin Calcium 40 Mg Tablet 1 Tab PO QHS Vitals/I & O Vital Sign - Last 24 Hours 08/03/16 08/03/16 08/03/16 08/03/16 13:00 14:28 14:29 15:00 Pulse 81 77 75 Resp 14 14 16 B/P (MAP) 131/72 Pulse Ox 97 97 96 O2 Delivery Nasal Cannula Nasal Cannula O2 Flow Rate 2.0 2.0 08/03/16 08/03/16 08/03/1608/03/17 15:15 15:30 15:30 15:45 Pulse 75 76 79 80 Resp 17 B/P (MAP) 164/91 (115) Pulse Ox 96 95 94 08/03/16 08/03/16 08/03/16 08/03/16 16:00 16:30 17:00 18:00 Pulse 81 80 78 78 Resp B/P (MAP) 165/82 Pulse Ox 93 94 93 08/03/16 08/03/16 08/03/16 08/03/16 18:00 19:10 19:21 20:00 Temp 97.5 97.5 Pulse 78 91 92 Resp 16 18 B/P (MAP) 193/99 (130) 193/99 Pulse Ox 93 95 O2 Delivery Room Air Room Air 08/03/16 08/03/16 08/03/16 08/03/16 20:02 22:55 22:57 23:00 Temp 98.0 98.0 Pulse 97 101 101 118 Resp 18 B/P (MAP) 131/65 166/78 (107) 98/61 (73) 102/57 (72) Pulse Ox 95 O2 Delivery Room Air 08/04/16 08/04/16 08/04/16 08/04/16 00:37 02:35 04:04 04:07 Temp 98.0 98.0 Pulse 99 99 Resp 18 B/P (MAP) 103/68 (80) 182/94 (123) 188/95 (126) 188/95 Pulse Ox 94 O2 Delivery Room Air 08/04/16 08/04/16 08/04/16 05:10 08:39 12:19 Pulse 99 99 B/P (MAP) 156/79 (104) 159/78 132/80 Intake and Output 08/03/16 08/03/16 08/04/16 15:00 23:00 07:00 Intake Total 180 ml 1110 ml Output Total 475 ml 700 ml 1150 ml Balance -475 ml -520 ml -40 ml ROSSY GRAMAJO MD August 04, 2016 12:37
[2016-08-04] MEDS ORDERED: AMIO200T2 PO (16:13)
== END 2016-08-04 17:05 | disposition home or self-care (01) | DRG 280 ==
LOC: 1 WEST ICU 13:15 → 2 NORTH 18:17
PROVIDERS: ADMIT Internal Medicine; ATTEND Internal Medicine
PROC: 4A023N7 Measurement of Cardiac Sampling and Pressure, Left Heart, Percutaneous Approach (ICD-10-PCS; principal; 2016-08-03)
PROC: B2151ZZ Fluoroscopy of Left Heart using Low Osmolar Contrast (ICD-10-PCS; 2016-08-03)
PROC: B2111ZZ Fluoroscopy of Multiple Coronary Arteries using Low Osmolar Contrast (ICD-10-PCS; 2016-08-03)
PROC: B2131ZZ Fluoroscopy of Multiple Coronary Artery Bypass Grafts using Low Osmolar Contrast (ICD-10-PCS; 2016-08-03)
DX: I21.4 Non-ST elevation (NSTEMI) myocardial infarction (principal); I26.99 Other pulmonary embolism without acute cor pulmonale; I47.1 Supraventricular tachycardia; I44.7 Left bundle-branch block, unspecified; E07.9 Disorder of thyroid, unspecified; E11.65 Type 2 diabetes mellitus with hyperglycemia; E78.5 Hyperlipidemia, unspecified; I10 Essential (primary) hypertension; I25.10 Atherosclerotic heart disease of native coronary artery without angina pectoris; I48.0 Paroxysmal atrial fibrillation; I48.2 Chronic atrial fibrillation; I95.1 Orthostatic hypotension; J44.9 Chronic obstructive pulmonary disease, unspecified; K21.9 Gastro-esophageal reflux disease without esophagitis; N40.0 Benign prostatic hyperplasia without lower urinary tract symptoms; Z79.82 Long term (current) use of aspirin; Z82.3 Family history of stroke; Z82.49 Family history of ischemic heart disease and other diseases of the circulatory system; Z85.6 Personal history of leukemia; Z86.718 Personal history of other venous thrombosis and embolism; Z87.891 Personal history of nicotine dependence; Z92.21 Personal history of antineoplastic chemotherapy; Z95.1 Presence of aortocoronary bypass graft; Z95.5 Presence of coronary angioplasty implant and graft; Z90.49 Acquired absence of other specified parts of digestive tract
CPT/HCPCS: 36415; 80048; 81001; 83735; 84439; 84443; 84480; 84484; 85027; 85520; 85610; 85730; 87641; 93005; 93458; 94060; 94250; 94729; C1769; C1771; C1892; G0269; J0282; J0360; J2250; J2405; J3010; J7030; J7040; Q9967; 97535

== ENCOUNTER → 2016-10-04 | Outpatient (CLI) | payer OTHER ==
[2016-08-04 15:06] VITALS: BP 83/52
[~2016-10-04] MED LIST changes: +NITR0.4T22 SL; -NITR0.4T6 SL
--- NOTE | 2016-10-04 15:45 | CARD ---
APPROVED REPORT EXAM: Two-dimensional and M-mode echocardiogram with Doppler and color Doppler. Other Information Quality : Good INDICATION Ischemic Cardiomyopathy 2D DIMENSIONS Left Atrium(2D)4.0 (1.6-4.0cm)IVSd1.6 (0.7-1.1cm) Aortic Root(2D)3.2 (2.0-3.7cm)LVDd4.6 (3.9-5.9cm) LVOT Diameter2.5 (1.8-2.4cm)PWd1.2 (0.7-1.1cm) LVDs3.5 (2.5-4.0cm)FS (%) 25.3 % SV49.8 mlLVEF(%)50.0 (>50%) Aortic Valve AoV Peak Raymond.118.3cm/sAoV VTI18.5cm AO Peak GR.5.6mmHgLVOT Peak Raymond.142.6cm/s AO Mean GR.3mmHgAVA (VMAX)5.85cm2 Mitral Valve MV E Kvcsompl22.4cm/sMV DECEL CENQ006mu MV A Mtqqnebs72.8cm/sE/A Ratio0.6 Tricuspid Valve TR P. [id number]/sRAP [id number] TR Peak Gr.48xqWmMZNZ06tmOe LEFT VENTRICLE The left ventricle is normal size. There is mild concentric left ventricular hypertrophy. Basal infer g-zceqfoy-wpismpm wall hypokinesis. The Ejection Fraction is 45%. Septal motion consistent with post- operative state. Transmitral Doppler flow pattern is Grade I-abnormal relaxation pattern. RIGHT VENTRICLE The right ventricle is normal size. The right ventricular systolic function is normal. ATRIA The left atrium is mildly dilated. The right atrium size is normal. The interatrial septum is intact with no evidence for an atrial septal defect or patent foramen ovale as noted on 2-D or Doppler imagi ng. AORTIC VALVE The aortic valve is mildly thickened but opens well. Doppler and Color Flow revealed no significant a ortic regurgitation. There is no significant aortic valvular stenosis. MITRAL VALVE The mitral valve is calcified but opens well. There is no evidence of mitral valve prolapse. There is no mitral valve stenosis. Doppler and Color-flow revealed trace mitral regurgitation. TRICUSPID VALVE The tricuspid valve is normal in structure and function. Doppler and Color Flow revealed trace tricus pid regurgitation. The PA pressure was estimated at 34 mmHg. There is no tricuspid valve stenosis. PULMONIC VALVE The pulmonary valve is normal in structure and function. Doppler and Color Flow revealed no pulmonic valvular regurgitation. There is no pulmonic valvular stenosis. GREAT VESSELS The aortic root is normal in size. The ascending aorta is normal in size. The IVC is normal in size a nd collapses >50% with inspiration. PERICARDIAL EFFUSION There is no evidence of significant pericardial effusion. Critical Notification Critical Value: No <Conclusion> Basal tpzhms-thjcwpb-gemtblo wall hypokinesis. The Ejection Fraction is 45%. Septal motion consistent with post-operative state. Transmitral Doppler flow pattern is Grade I-abnormal relaxation pattern. The left atrium is mildly dilated. Trace mitral regurgitation. Trace tricuspid regurgitation. The PA pressure was estimated at 34 mmHg. There is no evidence of significant pericardial effusion.
== END | disposition home or self-care (01) ==
LOC: ECHO 08:28
PROVIDERS: ATTEND Internal Medicine Cardiovascular Disease
DX: I08.1 Rheumatic disorders of both mitral and tricuspid valves (principal)
CPT/HCPCS: 93306

== ENCOUNTER 2016-12-07 11:01 | Inpatient (IN) | payer OTHER ==
[2016-12-07] VITALS (8 sets, daily range): BP systolic 121–218; BP diastolic 60–112
[~2016-12-07] VITALS: Ht 188 cm; Wt 94.0 kg
[2016-12-07] MEDS ORDERED: ONDANSETRON PF 4 MG/2 ML VIAL. IV PRN (14:00)
[2016-12-07] MEDS: metFORMIN 500 MG TABLET PO SCH (17:00)
--- NOTE | 2016-12-07 17:21 | PDOC2 ---
NEUROLOGY CONSULT Date of Admission Date of Admission DATE: 12/07/16 TIME: 17:04 Reason for Consult Reason for Consult: IMPRESSION: CVA syndrome. Orthostatic hypotension. Autonomic dysfunction. Dizziness. DM CAD., s/p stent placement. CHF, EF 45% CLL PE in past DVT, bilateral in past. Obesity. RECOMMENDATIONS/PLAN: Brain MRI/MRA w/o contrast. Lab: see orders. Ortho HR and BP Continue Plavix 75 mg daily. Continue ASA 325 mg daily. Continue Lipitor HS. OT/PT. He had Echo on 10/04/16. HISTORY OF THE PRESENT ILLNESS: 81-y-old male patient with above medical diseases has been having symptoms of recurrent dizziness, postural hypotension when standing and presyncopal spells. Per his daughter, his SBP can drop 50 mmHg from lying to standing position that caused him dizziness and weakness. He had DVT and PE about 2 years ago and was treated with Coumadin. CLL was diagnoses in 2009. PAST MEDICAL HISTORY: Please see above. PAST SURGERY HISTORY: Cardiac stent placement. Bilateral knee surgery. ALLERGY: Reviewed.n MEDICATIONS: Refer to [facility] FAMILY HISTORY: Non contributory. SOCIAL HISTORY: Denies current smoking, drinking, and illicit drug use. REVIEW OF SYSTEMS: Constitutional: No malnutrition, weight loss, cachexia. Head: No recent traumatic brain or head injury. Skin: No edema, or rash. Ear: No infection. Eyes: No vision loss or color blindness. Nose: No bleeding or purulent discharges. Hearing: Hearing decrease. Neck: No recent injury. Cardiac: CAD, s/p stent placement, HTN, HLD. Pulmonary: No COPD. GI: No GI ulcer, GI bleeding. Urinary/genital: UTI. Endocrinologic: Obesity. Skeletomuscular: Generalized weakness. Neurological: see HP. Psychiatric: Denies drug use/abuse. Otherwise, not [id number] review of systems. PHYSICAL EXAMINATION: General appearance is in subacute distress. HEENT: Normocephalic and nontraumatic. Eyes, nose, ears, and throat are unremarkable. Neck is supple. No lymphadenopathy. No crepitus. Cardiovascular: S1, S2, regular rate and rhythm. Pulmonary: Clear to auscultation bilaterally. Abdomen: Bowel sounds are positive. Abdomen is soft, nontender, and nondistended. Extremities: No rash, lesions, or edema. No restriction of range of motion NEUROLOGICAL EXAMINATION: Alert Oriented to time, place and person. PERRL. EOMI. CN: no focal findings. Muscle tone: within normal. Muscle strength: 5 DTR: 2 UE, 0 at knee. Plantar reflex: Neutral response bilaterally Gait: not examined in bed. Sensory exam: no abnormal findings. No acute cerebellar signs elicited. F-T-N test fine. Current Medications Current Medications Current Medications Aspirin (Jesús Aspirin) 325 mg DAILYWBKFT PO ; Start 12/08/16 at 08:00 Atorvastatin Calcium (Lipitor) 40 mg QHS PO ; Start 12/07/16 at 21:00 Vitamin D (Vitamin D3) 1,000 unit DAILY PO ; Start 12/08/16 at 09:00 Clopidogrel Bisulfate (Plavix) 75 mg DAILYWBKFT PO ; Start 12/08/16 at 08:00 Enoxaparin Sodium (Lovenox 40mg Syringe) 40 mg Q24H SQ ; Start 12/07/16 at 21:00 Ondansetron HCl (Zofran) 4 mg PRN Q4HRS PRN IV NAUSEA/VOMITING; Start 12/07/16 at 14:00 Pantoprazole Sodium (Protonix) 40 mg DAILYAC PO ; Start 12/08/16 at 07:30 Metformin HCl (Glucophage) 500 mg BIDWMEALS PO ; Start 12/07/16 at 17:00 Active Scripts Active Amiodarone Hcl 200 Mg Tablet 200 Mg PO BID 30 Days Aspirin Ec (Aspirin) 325 Mg Tablet. 1 Tab PO DAILY Reported Metformin Hcl 1,000 Mg Tablet 0.5 Tab PO BIDAC Midodrine Hcl 10 Mg Tablet 10 Mg PO TID Omeprazole 40 Mg Capsule. 40 Mg PO DAILY Clopidogrel (Clopidogrel Bisulfate) 75 Mg Tablet 1 Tab PO DAILY Atorvastatin Calcium 40 Mg Tablet 1 Tab PO QHS Allergies Allergies: Coded Allergies: No Known Allergies (Verified Allergy, Unknown, 03/09/16) Vitals VITALS Vital Signs Date Time Temp Pulse Resp B/P (MAP) Pulse Ox O2 Delivery O2 Flow Rate FiO2 12/07/16 15:00 98.3 77 17 139/85 (103) 98 Room Air 98.3 YOSVANY WINSLOW MD Dec 07, 2016 17:21
[2016-12-07] MEDS ORDERED: DEXTROSE 50% 25 GM / 50ML DISP.SYRIN. IV PRN (18:15)
[2016-12-07] MEDS: ENOXAPARIN 40 MG/0.4 ML SYRINGE. SQ SCH (20:23)
[2016-12-07] MEDS: ATORVASTATIN CALCIUM 40 MG TABLET. PO SCH (20:23)
[2016-12-07] MEDS: hydrALAZINE 20 MG/ML VIAL. IVP PRN (20:24)
[2016-12-08] VITALS (9 sets, daily range): BP systolic 121–199; BP diastolic 68–111
[2016-12-08 05:20] LABS: BASO # 0.1 x10^3/uL (0.0-0.2); BASO % 1 % (0-3); EOS % 5 % (0-3); HEMATOCRIT 37.2 % (39.0-53.0); HEMOGLOBIN 12.7 g/dL (13.0-17.5); LYMPH # 1.2 x10^3/uL (1.0-4.8); LYMPH % 16 % (24-48); MEAN CORPUSCULAR HEMOGLOBIN 31 pg (25-35); MEAN CORPUSCULAR HGB CONC 34 g/dL (31-37); MEAN CORPUSCULAR VOLUME 90 fL (79-100); MONO % 8 % (0-9); NEUT % 70 % (31-73); PLATELET COUNT 176 x10^3/uL (140-400); RED BLOOD COUNT 4.14 x10^6/uL (4.30-5.70); RED CELL DISTRIBUTION WIDTH 15.4 % (11.5-14.5); WHITE BLOOD COUNT 7.9 x10^3/uL (4.0-11.0)
[2016-12-08 05:35] LABS: ALBUMIN 3.2 g/dL (3.4-5.0); ALBUMIN/GLOBULIN RATIO 0.9 (1.0-1.7); CALCIUM 9.1 mg/dL (8.5-10.1); CREATININE 1.3 mg/dL (0.7-1.3); GFR 52.9; POTASSIUM 4.3 mmol/L (3.5-5.1); TOTAL BILIRUBIN 0.4 mg/dL (0.2-1.0); TOTAL PROTEIN 6.8 g/dL (6.4-8.2)
[2016-12-08] MEDS: hydrALAZINE 20 MG/ML VIAL. IVP PRN (06:45)
[2016-12-08] MEDS: CHOLECALCIFEROL (VITAMIN D3) 1,000 UNIT TABLET PO SCH (08:56)
[2016-12-08] MEDS: CLOPIDOGREL BISULFATE 75 MG TABLET PO SCH (08:56)
[2016-12-08] MEDS: PANTOPRAZOLE 40 MG TABLET.DR. PO SCH (08:56)
[2016-12-08] MEDS: metFORMIN 500 MG TABLET PO SCH ×2 (08:57→19:37)
[2016-12-08] MEDS: ASPIRIN 325 MG TABLET PO SCH (08:58)
--- NOTE | 2016-12-08 10:52 | HP ---
ADMIT DATE: 12/08/2016 HISTORY OF PRESENT ILLNESS: The patient is an 81-year-old male patient who was seen in the Emergency Room at [facility] with complaint of right lower extremity weakness and right arm numbness that started around 7:30 on 12/06/2016. He felt like his right leg was going to give way, stated this lasted a couple of minutes and sat down and it resolved. This occurred 2 additional times and he called 911. When he arrived to the Emergency Room, he was hypoxic with oxygen saturation in the mid 80s. However, the time he arrived there, all his symptoms have subsided. He denied any headache; denied any blurring of vision; denied any tingling, numbness in his face or difficulty swallowing. He was extensively evaluated and has had a CT scan of the head without contrast which was unremarkable. He has bilateral carotid Doppler ultrasound, which is also showed significant stenosis and yesterday, he had another episode of right-sided weakness and also had a syncopal episode during which he has marked postural hypotension with a systolic blood pressure lying was 147, standing was 197. Given this recurrent episode of TIA, a decision was made to transfer him to [facility] to consult the cardiology team as well as the Neurology for further evaluation and treatment. PAST MEDICAL HISTORY: Significant for coronary artery disease for which he underwent PCI and stent deployment in 2009. He has also had left heart catheterization 03/2013. He underwent coronary artery bypass graft surgery at the end of the last year. He has chronic obstructive pulmonary disease, deep vein thrombosis, pulmonary embolism, atrial fibrillation, hypertension, hyperlipidemia. He is also known to have chronic lymphocytic leukemia. PAST SURGICAL HISTORY: Significant for PCI stent deployment, coronary artery bypass graft surgery, appendectomy, skin cancer removal and bone marrow biopsy. FAMILY HISTORY: Significant for coronary artery disease in his father. His mother actually had at the age of 87 because of myocardial infarction. SOCIAL HISTORY: He is , has 1 daughter and 1 son. One of his sons at the age of 50 because of alcoholism. He smoked when he was 14 years old and up to the age of 39s, quit since then. He does not drink alcohol or recreational drugs. He is jain, retired in the year 1999. REVIEW OF SYSTEMS: The patient denied any blurring of vision, cataract, glaucoma or macular degeneration. Denied any earache. Denied any headache, tinnitus or sensorineural deafness. Denied any nosebleeds, stuffy nose or postnasal drip. Denied any sore throat, sore tongue, toothache, hoarseness of voice or difficulty swallowing. Denied any nausea, vomiting, diarrhea or constipation. Denied any hematemesis, melena or hematochezia. Denied any dysuria, frequency or hematuria. Denied any chest pain or shortness of breath. Denied any cough, phlegm or hemoptysis. Denied any chills, rigors or fever. He did complain of dizziness and actually has a syncopal episode, in fact he was on midodrine before. It was stopped a month ago. He did complain of weakness in his right upper extremity and right lower extremity. PHYSICAL EXAMINATION: GENERAL: When I examined him, he was resting slightly propped up in bed, in no apparent respiratory distress, pale, but no jaundice, cyanosis, or thyromegaly. No jugular venous distention. No limb edema. VITAL SIGNS: His heart rate was 82, blood pressure was 199/108, temperature was 98.2, respiratory rate was 15 and oxygen saturation was 93% on room air. HEAD, EYES, EARS, NOSE, THROAT: Normocephalic, atraumatic. NECK: Supple. HEART: Showed normal first and second heart sounds with no gallop, rub or murmur. CHEST: Clear to auscultation. No crepitation or rhonchi. ABDOMEN: Distended, soft, nontender. No guarding or rigidity. No organomegaly. Hernial orifice intact and bowel sounds normal. NEUROLOGIC: He was awake, alert, responding appropriately. All his cranial nerves are intact. He apparently has all the weakness in the right side, has largely subsided. LABORATORY WORK: This morning showed a serum sodium 141, potassium 4.3, chloride 106, bicarbonate 25, anion gap of 10, BUN 23, creatinine 1.3, estimated GFR was 52 mL per minute, his glucose was 127, calcium was 9.1. Total bilirubin, AST, ALT, alkaline phosphatase were normal. Total protein was 6.8, albumin 3.2. His triglycerides were 270, total cholesterol was 127, LDL cholesterol 41, VLDL was 54, and HDL cholesterol was 32, the ratio was 4. His white cell count is 7900, hemoglobin 12.7, hematocrit 37.2, MCV 90 and platelet count of 176,000 with manual differential showed 70% polymorphs, 16% lymphocytes and 8% monocytes. His nasal screen for MRSA by PCR was negative. He is scheduled for MRI and MRA of the brain without contrast today. PLAN: To consult the Neurology team as well as the Cardiology team. He did spike his blood and yesterday, he has marked postural hypotension, I wonder whether pheochromocytoma is something that we need to look into. RY SPRAGUE MD DR: JAN/jacinto JOB#: [id number] / [id number]
--- NOTE | 2016-12-08 11:16 | PDOC ---
CARDIO Progress Notes Date and Time Date of Service 12/08/16 Time of Evaluation 1045 Subjective Subjective: No Chest Pain, No shortness of breath, Other (dizziness upon standing ) Vitals Vitals Vital Signs Date Time Temp Pulse Resp B/P (MAP) Pulse Ox O2 Delivery O2 Flow Rate FiO2 12/08/16 06:45 82 199/108 12/08/16 06:14 15 12/08/16 03:04 98.2 93 Room Air 98.2 Weight Weight [ ] Laboratory Labs Laboratory Tests Test 12/07/16 13:15 12/07/16 18:07 12/07/16 20:52 12/08/16 04:45 Nasal Screen MRSA (PCR) Negative (Negative) Glucose (Fingerstick) 40 mg/dL (70-99) 119 mg/dL (70-99) White Blood Count 7.9 x10^3/uL (4.0-11.0) Red Blood Count 4.14 x10^6/uL (4.30-5.70) Hemoglobin 12.7 g/dL (13.0-17.5) Hematocrit 37.2 % (39.0-53.0) Mean Corpuscular Volume 90 fL (79-100) Mean Corpuscular Hemoglobin 31 pg (25-35) Mean Corpuscular Hemoglobin Concent 34 g/dL (31-37) Red Cell Distribution Width 15.4 % (11.5-14.5) Platelet Count 176 x10^3/uL (140-400) Neutrophils (%) (Auto) 70 % (31-73) Lymphocytes (%) (Auto) 16 % (24-48) Monocytes (%) (Auto) 8 % (0-9) Eosinophils (%) (Auto) 5 % (0-3) Basophils (%) (Auto) 1 % (0-3) Neutrophils # (Auto) 5.6 x10^3uL (1.8-7.7) Lymphocytes # (Auto) 1.2 x10^3/uL (1.0-4.8) Monocytes # (Auto) 0.6 x10^3/uL (0.0-1.1) Eosinophils # (Auto) 0.4 x10^3/uL (0.0-0.7) Basophils # (Auto) 0.1 x10^3/uL (0.0-0.2) Test 12/08/16 04:55 Sodium Level 141 mmol/L (136-145) Potassium Level 4.3 mmol/L (3.5-5.1) Chloride Level 106 mmol/L (98-107) Carbon Dioxide Level 25 mmol/L (21-32) Anion Gap 10 (6-14) Blood Urea Nitrogen 23 mg/dL (8-26) Creatinine 1.3 mg/dL (0.7-1.3) Estimated GFR (Cockcroft-Gault) 52.9 BUN/Creatinine Ratio 18 (6-20) Glucose Level 127 mg/dL (70-99) Calcium Level 9.1 mg/dL (8.5-10.1) Total Bilirubin 0.4 mg/dL (0.2-1.0) Aspartate Amino Transf (AST/SGOT) 20 U/L (15-37) Alanine Aminotransferase (ALT/SGPT) 18 U/L (16-63) Alkaline Phosphatase 91 U/L (46-116) Total Protein 6.8 g/dL (6.4-8.2) Albumin 3.2 g/dL (3.4-5.0) Albumin/Globulin Ratio 0.9 (1.0-1.7) Triglycerides Level 270 mg/dL (0-150) Cholesterol Level 127 mg/dL (0-200) LDL Cholesterol, Calculated 41 mg/dL (0-100) VLDL Cholesterol, Calculated 54 mg/dL (0-40) Non-HDL Cholesterol Calculated 95 mg/dL (0-129) HDL Cholesterol 32 mg/dL (40-60) Cholesterol/HDL Ratio 4.0 Physical Exam HEENT: Neck Supple W Full Motion Chest: Symmetric LUNGS: Clear to Auscultation Heart: S1S2, RRR Abdomen: Soft N/T Extremities: No Edema, No Calf Tenderness Neurology: alert, oriented, follow commands Assessment Assessment 1. Acute CVA - ASA, Plavix, statin. PT/OT. Echo without evidence of atrial septal defect or patent foramen ovale. continue as per neuro 2. orthostatic hypotension with pre syncope; will resume midodrine. 3. CAD/CABG status with subsequent stents - angina free, continue secondary prevention measures. LVEF 50%. 4. paroxysmal atrial fibrillation - currently in sinus rhythm. resume Amiodarone. On DAPT only due to a significant fall risk. 5. hypertension - on no meds due to significant orthostasis. IV Labetalol PRN. Allow for high-normal BP. If remains with significant supine hypertension, consider adding pyridostigmine 6. hyperlipidemia - statin JANIE ENGLISH APRN Dec 08, 2016 11:16
--- NOTE | 2016-12-08 13:34 | RAD ---
MRA Brain History: Dizziness, weakness, CVA syndrome Technique: 3-D [id number] MR angiography was performed of the brain. Comparison: None Contrast: None Findings: Determination of any degree of stenosis is based on NASCET criteria. There is motion degradation. Left vertebral artery apparently terminates in PICA, does not contribute to the basilar artery. Right vertebral artery supplies basilar artery. There is visualization of segments of bilateral PICAs and right AICA, left AICA not well visualized. There is visualization of segments of the bilateral superior cerebellar arteries. There is patent right posterior communicating artery, left posterior communicating artery not confidently seen. There is patent anterior communicating artery. No severe focal stenosis of the proximal left P2 segment, 90% or greater luminal diameter reduction. No aneurysm is identified. Impression: There is severe focal stenosis proximal left P2 segment. Left vertebral artery terminates in PICA. Electronically signed by: Brock Madrigal MD (12/08/2016 1:31 PM) [id number]
--- NOTE | 2016-12-08 14:09 | RAD ---
MRI Brain without contrast History: Dizziness and weakness Technique: Multiplanar, multisequential noncontrast MR imaging was performed of the brain. Contrast: None Comparison: None Findings: There is motion degradation. There is 0.8 cm focus of restricted diffusion of the posterior left lentiform nucleus with corresponding T2 and FLAIR hyperintense signal. There is also a small 0.4 cm focus of restricted diffusion along the margin of left left lateral ventricle. There is no midline shift or extra-axial fluid collection. There is moderate to severe generalized supratentorial atrophy. Ventricular size is within normal limits. There is scattered relatively mild T2 and FLAIR hyperintense abnormality of the supratentorial white matter bilaterally. There are old lacunar infarcts of the bilateral thalami and the right basal ganglia. There is no significant hemosiderin deposition of the brain parenchyma. There is preservation of the major arterial intracranial flow voids at the skull base. The is patchy minimal ethmoid air cell mucosal thickening. There is small right maxillary sinus mucous retention cyst cyst 0.9 cm. Mastoid air cells are aerated. Cerebellar tonsils are normal in location. There is preservation of marrow signal of the clivus. There is no significant abnormality of pineal gland or pituitary gland. There is small air-fluid level of the pharynx. Impression: 1. There are small foci of recent acute or early subacute infarcts of the left basal ganglia and along the margin of left lateral ventricle. 2. There is moderate to severe supratentorial atrophy. 3. Relatively mild T2 and FLAIR hyperintense abnormality of the supratentorial white matter is probably due to chronic microvascular ischemic disease. There are small old lacunar infarcts of the bilateral thalami and right basal ganglia. FOR INTERNAL CODING PURPOSES Critical result: Findings discussed with patient's nurse Mara at 12/08/2016 2:05 PM, to inform doctor of findings. RESULT CODE: (C) Electronically signed by: Brock Madrigal MD (12/08/2016 2:06 PM) [id number]
[2016-12-08] MEDS ORDERED: LABETALOL 20 MG/4 ML DISP.SYRIN. IVP PRN (17:00)
--- NOTE | 2016-12-08 17:22 | PDOC ---
PROGRESS NOTES Assessment Assessment Acute/subacute left BG infarct. Severe focal stenosis of proximal left P2 segment, 90%. Orthostatic hypotension. Autonomic dysfunction. Dizziness. DM CAD., s/p stent placement. CHF, EF 45% CLL PE in past DVT, bilateral in past. Peripheral neuropathy. Obesity. 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 RECOMMENDATIONS/PLAN: Continue Plavix 75 mg daily. Continue ASA 325 mg daily. Continue Lipitor HS. Carotid A US + Doppler. LE stoking. Vessel constrictor may not help due to severe intracranial artery stenosis. OT/PT. He had Echo on 10/04/16. HISTORY OF THE PRESENT ILLNESS: 81-y-old male patient with above medical diseases has been having symptoms of recurrent dizziness, postural hypotension when standing and presyncopal spells. Per his daughter, his SBP can drop 50 mmHg from lying to standing position that caused him dizziness and weakness. He had DVT and PE about 2 years ago and was treated with Coumadin. CLL was diagnoses in 2009. He had an orthostatic hypotension today on 12/08/16. PAST MEDICAL HISTORY: Please see above. PAST SURGERY HISTORY: Cardiac stent placement. Bilateral knee surgery. ALLERGY: Reviewed.n MEDICATIONS: Refer to [facility] FAMILY HISTORY: Non contributory. SOCIAL HISTORY: Denies current smoking, drinking, and illicit drug use. REVIEW OF SYSTEMS: Constitutional: No malnutrition, weight loss, cachexia. Head: No recent traumatic brain or head injury. Skin: No edema, or rash. Ear: No infection. Eyes: No vision loss or color blindness. Nose: No bleeding or purulent discharges. Hearing: Hearing decrease. Neck: No recent injury. Cardiac: CAD, s/p stent placement, HTN, HLD. Pulmonary: No COPD. GI: No GI ulcer, GI bleeding. Urinary/genital: UTI. Endocrinologic: Obesity. Skeletomuscular: Generalized weakness. Neurological: see HP. Psychiatric: Denies drug use/abuse. Otherwise, not [id number] review of systems. PHYSICAL EXAMINATION: General appearance is in subacute distress. HEENT: Normocephalic and nontraumatic. Eyes, nose, ears, and throat are unremarkable. Neck is supple. No lymphadenopathy. No crepitus. Cardiovascular: S1, S2, regular rate and rhythm. Pulmonary: Clear to auscultation bilaterally. Abdomen: Bowel sounds are positive. Abdomen is soft, nontender, and nondistended. Extremities: No rash, lesions, or edema. No restriction of range of motion NEUROLOGICAL EXAMINATION: Alert Oriented to time, place and person. PERRL. EOMI. CN: no focal findings. Muscle tone: within normal. Muscle strength: 5 DTR: 2 UE, 0 at knee. Plantar reflex: Neutral response bilaterally Gait: not examined in bed. Sensory exam: no abnormal findings. No acute cerebellar signs elicited. F-T-N test fine. Objective Objective Vital Signs Date Time Temp Pulse Resp B/P (MAP) Pulse Ox O2 Delivery O2 Flow Rate FiO2 12/08/16 08:00 Room Air 12/08/16 06:45 82 199/108 12/08/16 06:14 15 12/08/16 03:04 98.2 93 98.2 Vitals Signs Vitals VS - Last 72 Hours, by Label Date Time Temp Pulse Resp B/P (MAP) Pulse Ox O2 Delivery O2 Flow Rate FiO2 12/08/16 08:00 Room Air 12/08/16 06:45 82 199/108 12/08/16 06:43 81 199/98 (131) 12/08/16 06:14 80 15 186/111 (136) 12/08/16 03:04 98.2 73 15 151/76 (101) 93 Room Air 98.2 12/07/16 23:00 98.1 83 18 121/60 (80) 98 Room Air 98.1 12/07/16 21:56 81 157/81 (106) 12/07/16 21:22 81 152/80 (104) 12/07/16 20:55 87 174/94 (120) 12/07/16 20:24 82 218/112 12/07/16 20:12 77 206/108 (140) 12/07/16 20:12 82 218/112 (147) 12/07/16 19:30 Room Air 12/07/16 19:14 98.4 75 20 169/90 (116) 96 Room Air 98.4 12/07/16 15:00 98.3 77 17 139/85 (103) 98 Room Air 98.3 12/07/16 13:15 98.3 76 17 154/97 (116) 98 Room Air 98.3 12/07/16 13:15 Room Air Laboratory Laboratory Laboratory Tests Test 12/07/16 18:07 12/07/16 20:52 12/08/16 04:45 12/08/16 04:55 Glucose (Fingerstick) 40 mg/dL (70-99) 119 mg/dL (70-99) White Blood Count 7.9 x10^3/uL (4.0-11.0) Red Blood Count 4.14 x10^6/uL (4.30-5.70) Hemoglobin 12.7 g/dL (13.0-17.5) Hematocrit 37.2 % (39.0-53.0) Mean Corpuscular Volume 90 fL (79-100) Mean Corpuscular Hemoglobin 31 pg (25-35) Mean Corpuscular Hemoglobin Concent 34 g/dL (31-37) Red Cell Distribution Width 15.4 % (11.5-14.5) Platelet Count 176 x10^3/uL (140-400) Neutrophils (%) (Auto) 70 % (31-73) Lymphocytes (%) (Auto) 16 % (24-48) Monocytes (%) (Auto) 8 % (0-9) Eosinophils (%) (Auto) 5 % (0-3) Basophils (%) (Auto) 1 % (0-3) Neutrophils # (Auto) 5.6 x10^3uL (1.8-7.7) Lymphocytes # (Auto) 1.2 x10^3/uL (1.0-4.8) Monocytes # (Auto) 0.6 x10^3/uL (0.0-1.1) Eosinophils # (Auto) 0.4 x10^3/uL (0.0-0.7) Basophils # (Auto) 0.1 x10^3/uL (0.0-0.2) Sodium Level 141 mmol/L (136-145) Potassium Level 4.3 mmol/L (3.5-5.1) Chloride Level 106 mmol/L (98-107) Carbon Dioxide Level 25 mmol/L (21-32) Anion Gap 10 (6-14) Blood Urea Nitrogen 23 mg/dL (8-26) Creatinine 1.3 mg/dL (0.7-1.3) Estimated GFR (Cockcroft-Gault) 52.9 BUN/Creatinine Ratio 18 (6-20) Glucose Level 127 mg/dL (70-99) Calcium Level 9.1 mg/dL (8.5-10.1) Total Bilirubin 0.4 mg/dL (0.2-1.0) Aspartate Amino Transf (AST/SGOT) 20 U/L (15-37) Alanine Aminotransferase (ALT/SGPT) 18 U/L (16-63) Alkaline Phosphatase 91 U/L (46-116) Total Protein 6.8 g/dL (6.4-8.2) Albumin 3.2 g/dL (3.4-5.0) Albumin/Globulin Ratio 0.9 (1.0-1.7) Triglycerides Level 270 mg/dL (0-150) Cholesterol Level 127 mg/dL (0-200) LDL Cholesterol, Calculated 41 mg/dL (0-100) VLDL Cholesterol, Calculated 54 mg/dL (0-40) Non-HDL Cholesterol Calculated 95 mg/dL (0-129) HDL Cholesterol 32 mg/dL (40-60) Cholesterol/HDL Ratio 4.0 Medication Medications Current Medications Amiodarone HCl (Cordarone) 200 mg BID PO ; Start 12/08/16 at 21:00; Status UNV Aspirin (Jesús Aspirin) 325 mg DAILYWBKFT PO Last administered on 12/08/16 08: 58; Start 12/08/16 at 08:00 Atorvastatin Calcium (Lipitor) 40 mg QHS PO Last administered on 12/07/16 20: 23; Start 12/07/16 at 21:00 Clopidogrel Bisulfate (Plavix) 75 mg DAILYWBKFT PO Last administered on 08:56; Start 12/08/16 at 08:00 Dextrose (Dextrose 50%-Water Syringe) 12.5 gm PRN Q15MIN PRN IV SEE COMMENTS Last administered on 12/07/16 18:17; Start 12/07/16 at 18:15 Enoxaparin Sodium (Lovenox 40mg Syringe) 40 mg Q24H SQ Last administered on 20:23; Start 12/07/16 at 21:00 Hydralazine HCl (Apresoline) 10 mg PRN Q4HRS PRN IVP ELEVATED BP, SEE COMMENTS Last administered on 12/08/16 06:45; Start 12/07/16 at 20:15 Metformin HCl (Glucophage) 500 mg BIDWMEALS PO Last administered on 12/08/16 08:57; Start 12/07/16 at 17:00 Non-Formulary Medication 10 mg TID PO ; Start 12/08/16 at 21:00; Status UNV Pantoprazole Sodium (Protonix) 40 mg DAILYAC PO Last administered on 12/08/16 08:56; Start 12/08/16 at 07:30 Vitamin D (Vitamin D3) 1,000 unit DAILY PO Last administered on 12/08/16 08:56 ; Start 12/08/16 at 09:00 Comment Review of Relevant I have reviewed the following items samara (where applicable) has been applied. YOSVANY WINSLOW MD Dec 08, 2016 17:22
[2016-12-08] MEDS: MIDODRINE 5 MG TABLET PO SCH (18:00)
[2016-12-08] MEDS: ATORVASTATIN CALCIUM 40 MG TABLET. PO SCH (20:58)
[2016-12-08] MEDS: AMIODARONE HCL 200 MG TABLET. PO SCH (20:59)
[2016-12-08] MEDS: ENOXAPARIN 40 MG/0.4 ML SYRINGE. SQ SCH (21:24)
[2016-12-09] VITALS (17 sets, daily range): BP systolic 77–187; BP diastolic 51–94
[2016-12-09] MEDS: CHOLECALCIFEROL (VITAMIN D3) 1,000 UNIT TABLET PO SCH (08:28)
[2016-12-09] MEDS: metFORMIN 500 MG TABLET PO SCH ×2 (08:28→17:39)
[2016-12-09] MEDS: AMIODARONE HCL 200 MG TABLET. PO SCH ×2 (08:28→21:23)
[2016-12-09] MEDS: CLOPIDOGREL BISULFATE 75 MG TABLET PO SCH (08:28)
[2016-12-09] MEDS: PANTOPRAZOLE 40 MG TABLET.DR. PO SCH (08:28)
[2016-12-09] MEDS: ASPIRIN 325 MG TABLET PO SCH (08:28)
[2016-12-09] MEDS: MIDODRINE 5 MG TABLET PO SCH ×3 (08:29→17:39)
--- NOTE | 2016-12-09 12:35 | PDOC ---
PROGRESS NOTES Assessment Assessment Acute/subacute left BG infarct. Severe focal stenosis of proximal left P2 segment, 90%. Orthostatic hypotension. Autonomic dysfunction also contributes. Dizziness. DM CAD., s/p stent placement. CHF, EF 45% CLL PE in past, DVT bilateral in past. Peripheral neuropathy. Falls Obesity. 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 RECOMMENDATIONS/PLAN: Continue Plavix 75 mg daily. Continue ASA 325 mg daily. Continue Lipitor HS. LE stoking. Vessel constrictor may not help due to severe intracranial artery stenosis. OT/PT. Carotid A US + Doppler in [facility] on 12/06/16 showed mild plaque and no high grade stenosis. He had Echo on 10/04/16 which was not remarkable. HISTORY OF THE PRESENT ILLNESS: 81-y-old male patient with above medical diseases has been having symptoms of recurrent dizziness, postural hypotension when standing and presyncopal spells and falling sense. Per his daughter, his SBP can drop 50 mmHg from lying to standing position that caused him dizziness and weakness. He had DVT and PE about 2 years ago and was treated with Coumadin. CLL was diagnoses in 2009. He had an orthostatic hypotension events. PAST MEDICAL HISTORY: Please see above. PAST SURGERY HISTORY: Cardiac stent placement. Bilateral knee surgery. ALLERGY: Reviewed.n MEDICATIONS: Refer to [facility] FAMILY HISTORY: Non contributory. SOCIAL HISTORY: Denies current smoking, drinking, and illicit drug use. REVIEW OF SYSTEMS: Constitutional: No malnutrition, weight loss, cachexia. Head: No recent traumatic brain or head injury. Skin: No edema, or rash. Ear: No infection. Eyes: No vision loss or color blindness. Nose: No bleeding or purulent discharges. Hearing: Hearing decrease. Neck: No recent injury. Cardiac: CAD, s/p stent placement, HTN, HLD. Pulmonary: No COPD. GI: No GI ulcer, GI bleeding. Urinary/genital: UTI. Endocrinologic: Obesity. Skeletomuscular: Generalized weakness. Neurological: see HP. Psychiatric: Denies drug use/abuse. Otherwise, not [id number] review of systems. PHYSICAL EXAMINATION: General appearance is in subacute distress. HEENT: Normocephalic and nontraumatic. Eyes, nose, ears, and throat are unremarkable. Neck is supple. No lymphadenopathy. No crepitus. Cardiovascular: S1, S2, regular rate and rhythm. Pulmonary: Clear to auscultation bilaterally. Abdomen: Bowel sounds are positive. Abdomen is soft, nontender, and nondistended. Extremities: No rash, lesions, or edema. No restriction of range of motion NEUROLOGICAL EXAMINATION: Alert Oriented to time, place and person. PERRL. EOMI. CN: no focal findings. Muscle tone: within normal. Muscle strength: 5 DTR: 2 UE, 0-1 at knee. Plantar reflex: Neutral response bilaterally Gait: not examined in bed. Sensory exam: no abnormal findings. No acute cerebellar signs elicited. F-T-N test fine. Objective Objective Vital Signs Date Time Temp Pulse Resp B/P (MAP) Pulse Ox O2 Delivery O2 Flow Rate FiO2 12/09/16 11:11 97.7 69 20 124/73 (90) 95 Room Air 97.7 Intake and Output 12/10/16 07:00 Intake Total 100 ml Balance 100 ml Intake Oral 100 ml Vitals Signs Vitals VS - Last 72 Hours, by Label Date Time Temp Pulse Resp B/P (MAP) Pulse Ox O2 Delivery O2 Flow Rate FiO2 12/09/16 11:11 97.7 69 20 124/73 (90) 95 Room Air 97.7 12/09/16 09:56 166/83 (110) 12/09/16 09:53 98 77/51 (60) 12/09/16 09:50 98 81/51 (61) 12/09/16 09:47 94 94/61 (72) 12/09/16 09:45 80 102/62 (75) 12/09/16 09:44 84 135/84 (101) 12/09/16 08:29 76 169/86 12/09/16 08:28 76 169/86 12/09/16 08:15 Room Air 12/09/16 07:40 98.4 76 12 169/86 (113) 98 Room Air 98.4 12/09/16 07:40 97.5 97.5 12/09/16 03:30 98.4 73 14 146/69 (94) 98 Room Air 98.4 12/08/16 23:30 98.4 91 16 156/86 (109) 96 Room Air 98.4 12/08/16 20:59 83 171/93 12/08/16 20:00 Room Air 12/08/16 19:30 97.7 86 18 145/79 (101) 98 Room Air 97.7 12/08/16 17:00 96.0 82 21 187/102 (130) 96.0 12/08/16 15:00 100 16 121/70 (87) 12/08/16 11:00 98.5 79 18 140/68 (92) 98.5 12/08/16 08:00 Room Air 12/08/16 07:00 98.3 82 22 154/78 (103) 98.3 Laboratory Laboratory Laboratory Tests Test 12/08/16 21:27 12/09/16 08:25 Glucose (Fingerstick) 111 mg/dL (70-99) 106 mg/dL (70-99) Medication Medications Current Medications Amiodarone HCl (Cordarone) 200 mg BID PO Last administered on 12/09/16 08:28; Start 12/08/16 at 21:00 Labetalol HCl (Normodyne) 20 mg PRN Q2HR PRN IVP HYPERTENSION, SEE COMMENTS; Start 12/08/16 at 17:00 Midodrine (Proamatine) 10 mg [id number] PO Last administered on 12/09/16 08:29; Start 12/08/16 at 18:00 Comment Review of Relevant I have reviewed the following items samara (where applicable) has been applied. YOSVANY WINSLOW MD Dec 09, 2016 12:34
--- NOTE | 2016-12-09 14:26 | PDOC ---
CARDIO Progress Notes Date and Time Date of Service 12/09/16 Time of Evaluation 1045 Subjective Subjective: No Chest Pain, No shortness of breath, No Dizziness, Other ( sitting up in chair.) Vitals Vitals Vital Signs Date Time Temp Pulse Resp B/P (MAP) Pulse Ox O2 Delivery O2 Flow Rate FiO2 12/09/16 13:52 78 124/73 12/09/16 11:11 97.7 20 95 Room Air 97.7 Weight Weight [ ] Input and Output Intake and Output Intake and Output 12/10/16 07:00 Intake Total 100 ml Balance 100 ml Intake Oral 100 ml Laboratory Labs Laboratory Tests Test 12/08/16 21:27 12/09/16 08:25 Glucose (Fingerstick) 111 mg/dL (70-99) 106 mg/dL (70-99) Physical Exam HEENT: Neck Supple W Full Motion Chest: Symmetric LUNGS: Clear to Auscultation Heart: S1S2, RRR Abdomen: Soft N/T Extremities: No Edema, No Calf Tenderness Neurology: alert, oriented, follow commands Assessment Assessment 1. Acute CVA - ASA, Plavix, statin. PT/OT. Echo without evidence of atrial septal defect or patent foramen ovale. continue as per neuro 2. orthostatic hypotension with pre syncope; continue midodrine. Daily orthostatic HR and BP. Maintain adequate hydration. 3. CAD/CABG status with subsequent stents - angina free, continue secondary prevention measures. LVEF 50%. 4. paroxysmal atrial fibrillation - currently in sinus rhythm. resume Amiodarone. On DAPT only due to a significant fall risk. 5. hypertension - on no meds due to significant orthostasis. IV Labetalol PRN. Allow for high-normal BP. 6. hyperlipidemia - statin JANIE ENGLISH APRN Dec 09, 2016 14:26
[2016-12-09] MEDS: ENOXAPARIN 40 MG/0.4 ML SYRINGE. SQ SCH (21:23)
[2016-12-09] MEDS: ATORVASTATIN CALCIUM 40 MG TABLET. PO SCH (21:23)
[2016-12-10] VITALS (19 sets, daily range): BP systolic 90–175; BP diastolic 52–89
[2016-12-10 05:27] LABS: HEMATOCRIT 35.9 % (39.0-53.0); HEMOGLOBIN 12.1 g/dL (13.0-17.5); RED BLOOD COUNT 4.01 x10^6/uL (4.30-5.70); RED CELL DISTRIBUTION WIDTH 15.4 % (11.5-14.5); WHITE BLOOD COUNT 7.8 x10^3/uL (4.0-11.0)
[2016-12-10 05:54] LABS: ALBUMIN 3.1 g/dL (3.4-5.0); ALBUMIN/GLOBULIN RATIO 0.9 (1.0-1.7); CREATININE 1.2 mg/dL (0.7-1.3); POTASSIUM 4.4 mmol/L (3.5-5.1); TOTAL BILIRUBIN 0.4 mg/dL (0.2-1.0); TOTAL PROTEIN 6.6 g/dL (6.4-8.2)
--- NOTE | 2016-12-10 06:34 | PN ---
DATE: 12/09/2016 SUBJECTIVE: The patient is resting slightly propped up in his recliner in no apparent respiratory distress. He apparently continued to have marked postural hypotension, for which he was started on midodrine 10 mg 3 times a day. Yesterday, he apparently had another syncopal episode. This morning, he also has marked drop in his blood pressure standing, although he did not have the symptoms. His MRI of the brain showed that there are small foci of recent acute or early subacute infarct in the left basal ganglia and along the margin of the left lateral ventricle. There is [id number] supratentorial atrophy and relatively mild T2 and FLAIR hyperintense abnormality of the supratentorial white matter. It is probably due to chronic microvascular ischemic disease. There are small old lacunar infarcts in bilateral thalami and right basal ganglia. The MRA of the brain shows that there is severe focal stenosis of proximal left P2 segment. Left vertebral artery ____ terminates in the posteroinferior cerebellar artery. PHYSICAL EXAMINATION: GENERAL: When I examined him this morning, he looked well and was clearly in no apparent respiratory distress, pale but not jaundiced or cyanosed. No thyromegaly. No jugular distension, no limb edema. VITAL SIGNS: His heart rate was 98, blood pressure was 166/83. His blood pressure standing this morning was 77/51. HEAD, EYES, EARS, NOSE AND THROAT: Normocephalic, atraumatic. NECK: Supple. HEART: Showed normal first and second heart sounds with no gallop, rub or murmur. CHEST: Clear to auscultation. No crepitation or rhonchi. ABDOMEN: Distended, soft, nontender. No guarding or rigidity. No organomegaly. All hernial orifices intact. Bowel sounds normal. NEUROLOGIC: He is awake, alert, responding appropriately. Cranial nerves intact. He moves extremities without difficulty, although obviously he is a very high fall risk given the dramatic drop in his systolic pressure when standing ____ had multiple syncopal episodes before, his intake was 850, output was 1050. LABORATORY WORK: As of yesterday showed that his BUN was 23, creatinine 1.3. Serum triglycerides were 270. Total cholesterol was 127. LDL cholesterol was 41. VLDL was 54. HDL cholesterol was 32, and the ratio was 4. ASSESSMENT: 1. 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 Apparently, his echocardiogram showed no evidence of atrial septal defect or patent foramen ovale. 2. Orthostatic hypotension, for which he was restarted on midodrine. 3. Coronary artery disease, status post coronary artery bypass grafting with subsequent stents. The patient is pain free. His ejection fraction was 50%. 4. Paroxysmal atrial fibrillation, currently in sinus rhythm. Was back on amiodarone. Is not on anticoagulation given his fall risk. 5. Hypertension, for which he is currently on no medication for significant orthostatic hypotension. 6. Hyperlipidemia, on statin. PLAN: I will consult the interventional radiologist to see whether the stenosis of the P2 segment of posterior cerebral artery can be angioplastied or stent can be put in. RY SPRAGUE MD DR: JAN/jacinto JOB#: [id number] / [id number]
[2016-12-10] MEDS: MIDODRINE 5 MG TABLET PO SCH ×3 (07:00→17:38)
[2016-12-10] MEDS: CLOPIDOGREL BISULFATE 75 MG TABLET PO SCH (08:35)
[2016-12-10] MEDS: metFORMIN 500 MG TABLET PO SCH ×2 (08:35→17:37)
[2016-12-10] MEDS: CHOLECALCIFEROL (VITAMIN D3) 1,000 UNIT TABLET PO SCH (08:35)
[2016-12-10] MEDS: ASPIRIN 325 MG TABLET PO SCH (08:35)
[2016-12-10] MEDS: PANTOPRAZOLE 40 MG TABLET.DR. PO SCH (08:35)
[2016-12-10] MEDS: AMIODARONE HCL 200 MG TABLET. PO SCH ×2 (08:35→20:37)
--- NOTE | 2016-12-10 13:31 | PDOC ---
PROGRESS NOTES Assessment Assessment Acute/subacute left BG infarct. Severe focal stenosis of proximal left P2 segment, 90%. Orthostatic hypotension. Autonomic dysfunction also contributes. Dizziness. DM CAD., s/p stent placement. CHF, EF 45% CLL PE in past, DVT bilateral in past. Peripheral neuropathy. Falls Obesity. 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 RECOMMENDATIONS/PLAN: Continue Plavix 75 mg daily. Continue ASA 325 mg daily. Continue Lipitor HS. On Midodrine. LE stoking. OT/PT. Carotid A US + Doppler in [facility] on 12/06/16 showed mild plaque and no high grade stenosis. He had Echo on 10/04/16 which was not remarkable. HISTORY OF THE PRESENT ILLNESS: 81-y-old male patient with above medical diseases has been having symptoms of recurrent dizziness, postural hypotension when standing and presyncopal spells and falling sense. Per his daughter, his SBP can drop 50 mmHg from lying to standing position that caused him dizziness and weakness. He had DVT and PE about 2 years ago and was treated with Coumadin. CLL was diagnoses in 2009. He is doing better on 12/10/16. PAST MEDICAL HISTORY: Please see above. PAST SURGERY HISTORY: Cardiac stent placement. Bilateral knee surgery. ALLERGY: Reviewed.n MEDICATIONS: Refer to [facility] FAMILY HISTORY: Non contributory. SOCIAL HISTORY: Denies current smoking, drinking, and illicit drug use. REVIEW OF SYSTEMS: Constitutional: No malnutrition, weight loss, cachexia. Head: No recent traumatic brain or head injury. Skin: No edema, or rash. Ear: No infection. Eyes: No vision loss or color blindness. Nose: No bleeding or purulent discharges. Hearing: Hearing decrease. Neck: No recent injury. Cardiac: CAD, s/p stent placement, HTN, HLD. Pulmonary: No COPD. GI: No GI ulcer, GI bleeding. Urinary/genital: UTI. Endocrinologic: Obesity. Skeletomuscular: Generalized weakness. Neurological: see HP. Psychiatric: Denies drug use/abuse. Otherwise, not [id number] review of systems. PHYSICAL EXAMINATION: General appearance is in subacute distress. HEENT: Normocephalic and nontraumatic. Eyes, nose, ears, and throat are unremarkable. Neck is supple. No lymphadenopathy. No crepitus. Cardiovascular: S1, S2, regular rate and rhythm. Pulmonary: Clear to auscultation bilaterally. Abdomen: Bowel sounds are positive. Abdomen is soft, nontender, and nondistended. Extremities: No rash, lesions, or edema. No restriction of range of motion NEUROLOGICAL EXAMINATION: Alert Sitting in chair. Oriented to time, place and person. PERRL. EOMI. CN: no focal findings. Muscle tone: within normal. Muscle strength: 5 DTR: 2 UE, 0-1 at knee. Plantar reflex: Neutral response bilaterally Gait: not examined in chair. Sensory exam: no abnormal findings. No acute cerebellar signs elicited. F-T-N test fine. Objective Objective Vital Signs Date Time Temp Pulse Resp B/P (MAP) Pulse Ox O2 Delivery O2 Flow Rate FiO2 12/10/16 13:00 73 21 163/86 (111) 98 Room Air 12/10/16 12:00 97.6 97.6 Intake and Output 12/11/16 07:00 Intake Total 200 ml Output Total 325 ml Balance -125 ml Intake Oral 200 ml Output Urine Total 325 ml # Voids 1 # Bowel Movements 1 Vitals Signs Vitals VS - Last 72 Hours, by Label Date Time Temp Pulse Resp B/P (MAP) Pulse Ox O2 Delivery O2 Flow Rate FiO2 12/10/16 13:00 73 21 163/86 (111) 98 Room Air 12/10/16 12:00 Room Air 12/10/16 12:00 97.6 70 15 151/89 (109) 99 Room Air 97.6 12/10/16 11:00 93 22 133/72 (92) 94 Room Air 12/10/16 10:00 92 28 90/52 (65) 99 Room Air 12/10/16 09:00 74 28 108/66 (80) 95 Room Air 12/10/16 08:35 68 159/89 12/10/16 08:00 Room Air 12/10/16 08:00 97.7 63 22 159/89 (112) 98 Room Air 97.7 12/10/16 07:00 62 24 175/79 (111) 97 Room Air 12/10/16 06:00 62 19 154/79 (104) 97 Room Air 12/10/16 05:00 60 24 143/71 (95) 96 Room Air 12/10/16 04:01 Room Air 12/10/16 04:00 98.3 57 14 139/69 (92) 96 Room Air 98.3 12/10/16 03:00 64 20 172/78 (109) 96 Room Air 12/10/16 02:00 58 16 145/80 (101) 98 Room Air 12/10/16 01:00 60 16 168/79 (108) 96 Room Air 12/10/16 00:06 Room Air 12/10/16 00:00 61 14 142/69 (93) 95 Room Air 12/09/16 23:00 61 19 144/59 (87) 92 Room Air 12/09/16 22:00 68 15 181/92 (121) 98 Room Air 12/09/16 21:23 74 170/88 12/09/16 21:00 68 14 181/90 (120) 99 Room Air 12/09/16 20:00 71 13 170/76 (107) 98 Room Air 12/09/16 19:45 Room Air 12/09/16 19:00 98.0 72 15 153/76 (101) 96 Room Air 98.0 12/09/16 18:00 84 20 187/94 (125) Room Air 12/09/16 17:39 76 119/74 12/09/16 16:00 70 18 117/71 (86) Room Air 12/09/16 15:08 97.5 76 19 119/74 (89) 98 Room Air 97.5 12/09/16 13:52 78 124/73 12/09/16 11:11 97.7 69 20 124/73 (90) 95 Room Air 97.7 12/09/16 09:56 166/83 (110) 12/09/16 09:53 98 77/51 (60) 12/09/16 09:50 98 81/51 (61) 12/09/16 09:47 94 94/61 (72) 12/09/16 09:45 80 102/62 (75) 12/09/16 09:44 84 135/84 (101) 12/09/16 08:29 76 169/86 12/09/16 08:28 76 169/86 12/09/16 08:15 Room Air 12/09/16 07:40 98.4 76 12 169/86 (113) 98 Room Air 98.4 12/09/16 07:40 97.5 97.5 Laboratory Laboratory Laboratory Tests Test 12/09/16 17:38 12/09/16 21:26 12/10/16 03:45 12/10/16 08:52 Glucose (Fingerstick) 102 mg/dL (70-99) 130 mg/dL (70-99) 85 mg/dL (70-99) White Blood Count 7.8 x10^3/uL (4.0-11.0) Red Blood Count 4.01 x10^6/uL (4.30-5.70) Hemoglobin 12.1 g/dL (13.0-17.5) Hematocrit 35.9 % (39.0-53.0) Mean Corpuscular Volume 90 fL (79-100) Mean Corpuscular Hemoglobin 30 pg (25-35) Mean Corpuscular Hemoglobin Concent 34 g/dL (31-37) Red Cell Distribution Width 15.4 % (11.5-14.5) Platelet Count 175 x10^3/uL (140-400) Sodium Level 144 mmol/L (136-145) Potassium Level 4.4 mmol/L (3.5-5.1) Chloride Level 110 mmol/L (98-107) Carbon Dioxide Level 24 mmol/L (21-32) Anion Gap 10 (6-14) Blood Urea Nitrogen 24 mg/dL (8-26) Creatinine 1.2 mg/dL (0.7-1.3) Estimated GFR (Cockcroft-Gault) 58.0 BUN/Creatinine Ratio 20 (6-20) Glucose Level 103 mg/dL (70-99) Calcium Level 9.0 mg/dL (8.5-10.1) Total Bilirubin 0.4 mg/dL (0.2-1.0) Aspartate Amino Transf (AST/SGOT) 24 U/L (15-37) Alanine Aminotransferase (ALT/SGPT) 22 U/L (16-63) Alkaline Phosphatase 99 U/L (46-116) Total Protein 6.6 g/dL (6.4-8.2) Albumin 3.1 g/dL (3.4-5.0) Albumin/Globulin Ratio 0.9 (1.0-1.7) Thyroid Stimulating Hormone (TSH) 6.443 uIU/mL (0.358-3.74) Comment Review of Relevant I have reviewed the following items samara (where applicable) has been applied. YOSVANY WINSLOW MD Dec 10, 2016 13:31
--- NOTE | 2016-12-10 14:54 | PDOC ---
CARDIO Progress Notes Date and Time Date of Service 12/10/16 Time of Evaluation 1315 Subjective Subjective: No Chest Pain, No shortness of breath, No Dizziness Vitals Vitals Vital Signs Date Time Temp Pulse Resp B/P (MAP) Pulse Ox O2 Delivery O2 Flow Rate FiO2 12/10/16 14:19 74 144/84 12/10/16 14:00 12 97 Room Air 12/10/16 12:00 97.6 97.6 Weight Weight [ ] Input and Output Intake and Output Intake and Output 12/11/16 07:00 Intake Total 200 ml Output Total 325 ml Balance -125 ml Intake Oral 200 ml Output Urine Total 325 ml # Voids 1 # Bowel Movements 1 Laboratory Labs Laboratory Tests Test 12/09/16 17:38 12/09/16 21:26 12/10/16 03:45 12/10/16 08:52 Glucose (Fingerstick) 102 mg/dL (70-99) 130 mg/dL (70-99) 85 mg/dL (70-99) White Blood Count 7.8 x10^3/uL (4.0-11.0) Red Blood Count 4.01 x10^6/uL (4.30-5.70) Hemoglobin 12.1 g/dL (13.0-17.5) Hematocrit 35.9 % (39.0-53.0) Mean Corpuscular Volume 90 fL (79-100) Mean Corpuscular Hemoglobin 30 pg (25-35) Mean Corpuscular Hemoglobin Concent 34 g/dL (31-37) Red Cell Distribution Width 15.4 % (11.5-14.5) Platelet Count 175 x10^3/uL (140-400) Sodium Level 144 mmol/L (136-145) Potassium Level 4.4 mmol/L (3.5-5.1) Chloride Level 110 mmol/L (98-107) Carbon Dioxide Level 24 mmol/L (21-32) Anion Gap 10 (6-14) Blood Urea Nitrogen 24 mg/dL (8-26) Creatinine 1.2 mg/dL (0.7-1.3) Estimated GFR (Cockcroft-Gault) 58.0 BUN/Creatinine Ratio 20 (6-20) Glucose Level 103 mg/dL (70-99) Calcium Level 9.0 mg/dL (8.5-10.1) Total Bilirubin 0.4 mg/dL (0.2-1.0) Aspartate Amino Transf (AST/SGOT) 24 U/L (15-37) Alanine Aminotransferase (ALT/SGPT) 22 U/L (16-63) Alkaline Phosphatase 99 U/L (46-116) Total Protein 6.6 g/dL (6.4-8.2) Albumin 3.1 g/dL (3.4-5.0) Albumin/Globulin Ratio 0.9 (1.0-1.7) Thyroid Stimulating Hormone (TSH) 6.443 uIU/mL (0.358-3.74) Physical Exam HEENT: Neck Supple W Full Motion Chest: Symmetric LUNGS: Clear to Auscultation Heart: S1S2, RRR Abdomen: Soft N/T Extremities: No Edema, No Calf Tenderness Neurology: alert, oriented, follow commands Assessment Assessment 1. Acute CVA 2. orthostatic hypotension with pre syncope; Maintain adequate hydration. 3. CAD/CABG status with subsequent stents - LVEF 50%. 4. paroxysmal atrial fibrillation - maintaining SR with Amiodarone.On DAPT only due to significant fall risk. 5. hypertension - Allow for high-normal BP. 6. hyperlipidemia Recommendations Continue secondary prevention measures including ASA, Plavix, and statin therapy Discontinue Midodrine given supine hypertension. Consider short-acting antihypertensive at night if patient remains hypertensive at rest Support stockings. Consider abdominal binder. Change positions slowly Continue supportive care. Followup with Dr. Bruner in 2-4 weeks upon discharge. JANIE ENGLISH APRN Dec 10, 2016 14:54
[2016-12-10] MEDS: ENOXAPARIN 40 MG/0.4 ML SYRINGE. SQ SCH (20:37)
[2016-12-10] MEDS: ATORVASTATIN CALCIUM 40 MG TABLET. PO SCH (20:37)
--- NOTE | 2016-12-11 01:25 | PN ---
DATE: 12/10/2016 SUBJECTIVE: The patient is sitting in his chair comfortably in no apparent distress. He continued to have marked postural hypertension, although today, he was asymptomatic. Denied any chest pain or shortness of breath. OBJECTIVE: GENERAL: On examining him, he looked well and was clearly in no apparent respiratory distress, slightly pale, but no jaundice, cyanosis, or thyromegaly. No jugular venous distention. No limb edema. VITAL SIGNS: Heart rate was 63, blood pressure was 159/89, temperature was 97.7, respiratory rate 22, and oxygen saturation was 98% on room air. HEAD, EYES, EARS, NOSE AND THROAT: Showed normocephalic, atraumatic. NECK: Supple. HEART: Showed normal first and second heart sounds. No gallop, rub or murmur. CHEST: Clear to auscultation. No crepitation or rhonchi. ABDOMEN: Distended, soft, nontender. NEUROLOGIC: He is awake, alert, responding appropriately. His cranial nerves intact. He moves extremities without difficulty, although he continued to have episodes of dizziness and syncopal episode due to postural hypotension secondary to autonomic neuropathy. His intake was 670, output was 950. LABORATORY DATA: As of this morning, his serum sodium 144, potassium 4.4, chloride 110, bicarbonate 24, anion gap of 10, BUN 24, creatinine 1.2, estimated GFR was 58 mL per minute. His glucose was 103, calcium was 9. Total bilirubin, AST, ALT, alkaline phosphatase were normal. Total protein 6.6, albumin 3.1. TSH was slightly elevated at 6.44. His white cell count was 7800, hemoglobin 12, hematocrit 35, MCV 90 and platelet count of 175,000. ASSESSMENT: 1. Acute left-sided cerebrovascular accident with right-sided hemiparesis, apparently. However, his echocardiogram showed no evidence of any atrial septal defect or patent foramen ovale. 2. Orthostatic hypotension for which he was started on midodrine. 3. Coronary artery disease, status post coronary artery bypass graft surgery and subsequent stent deployment. The patient is pain free. His ejection fraction is 50%, paroxysmal atrial fibrillation, currently in sinus rhythm, was on midodrine. He is not on anticoagulation because of high fall risk. 4. Hypertension, which he is currently on no medication for significant orthostatic hypotension. 5. Hyperlipidemia, on statin. The MRI showed that he has 90% stenosis at P2 segment with diffuse cerebral artery. He has also acute to subacute left basal ganglia infarct. He has also old bilateral thalamic and right basal ganglia infarct. PLAN: To continue with physical and occupational therapy. Continue with midodrine. Continue with elastic stocking. The patient can be transferred to the floor with a 24-hour urine collection for VMA and metanephrines to exclude the possibility of pheochromocytoma. RY SPRAGUE MD DR: JAN/jacinto JOB#: [id number] / [id number]
[2016-12-11 03:15] VITALS: BP 116/63
[2016-12-11 07:00] VITALS: BP 155/88
[2016-12-11] MEDS: CHOLECALCIFEROL (VITAMIN D3) 1,000 UNIT TABLET PO SCH (08:36)
[2016-12-11] MEDS: ASPIRIN 325 MG TABLET PO SCH (08:36)
[2016-12-11] MEDS: metFORMIN 500 MG TABLET PO SCH (08:36)
[2016-12-11] MEDS: CLOPIDOGREL BISULFATE 75 MG TABLET PO SCH (08:36)
[2016-12-11] MEDS: PANTOPRAZOLE 40 MG TABLET.DR. PO SCH (08:36)
[2016-12-11 08:38] VITALS: BP 113/70
[2016-12-11] MEDS ORDERED: AMIO200T2 PO (10:27)
[2016-12-11 11:00] VITALS: BP 118/69
--- NOTE | 2016-12-11 21:43 | DS ---
DATE OF DISCHARGE: 12/11/2016 HOSPITAL COURSE: The patient is an 81-year-old male patient who was transferred from [facility] with recurrent episode of TIA with right-sided weakness. He also has had syncopal episode and marked postural hypotension. He was seen in consultation by the neurologist as well as the Cardiology team. An MRI showed that he has small foci of recent acute or early subacute infarct in the left basal ganglia and along the margin of the left lateral ventricle with moderate to severe supratentorial atrophy. He has also relatively mild T2 and FLAIR hyperintense abnormality of the supratentorial white matter, probably due to chronic microvascular ischemic changes. He has also small old lacunar infarcts in the bilateral thalami and right basal ganglia. The angiography and MRI showed that the patient has severe focal stenosis of the proximal left P2 segment of 90% or greater luminal diameter reduction. No aneurysms identified. I did speak with Dr. Contreras, the interventional radiologist and these arteries are not amenable to angioplasty or stenting. I had a lengthy discussion with about the nature of his illness and that he has severe autonomic neuropathy with marked postural hypotension and that he has to basically be highly conscious if were to know that he has to basically be careful and change positions slowly. Dr. Cid also recommended clonidine 0.2 mg at nighttime to treat his supine hypertension as his systolic pressure goes up to 220 at times when he is lying flat. We did start him on midodrine, but eventually the food service aide recommended to discontinue that. PHYSICAL EXAMINATION: GENERAL: When I examined him today, he was resting slightly propped up in bed, in no apparent respiratory distress, slightly pale, but no jaundice, cyanosis, or thyromegaly. No jugular venous distension. No limb edema. VITAL SIGNS: His heart rate was 78, blood pressure 113/70, temperature was 97.6, respiratory rate 20, and oxygen saturation was 95%. HEAD, EYES, EARS, NOSE AND THROAT: Showed normocephalic, atraumatic. NECK: Supple. HEART: Showed normal first and second heart sounds with no gallop, rub or murmur. CHEST: Clear to auscultation. No crepitation or rhonchi. ABDOMEN: Distended, soft, nontender. NEUROLOGIC: He was awake, alert, responding appropriately. His cranial nerves are intact. He moves extremities without difficulty. LABORATORY DATA: Showed a white cell count of 7800, hemoglobin 12, hematocrit 36, MCV 90 and platelet count of 175,000. His chemistry showed a serum sodium 144, potassium 4.4, chloride 110, bicarbonate 24, anion gap of 10, BUN 24, creatinine 1.2. Estimated GFR was 58 mL per minute. His glucose 103, calcium was 9. Total bilirubin, AST, ALT, alkaline phosphatase were normal. His total protein is 6.6, albumin was 3.1. His TSH was slightly elevated at 6.44. DISCHARGE MEDICATIONS: He was discharged home to continue following medications; clonidine 0.2 mg tablet at bedtime, amiodarone 200 mg once a day, aspirin 325 mg once a day, atorvastatin 40 mg at bedtime, Plavix 75 mg once a day, metformin 500 mg p.o. b.i.d., omeprazole 40 mg once a day. FINAL DISCHARGE DIAGNOSES: 1. Acute subacute left basal ganglia infarct. 2. Severe focal stenosis of proximal left P2 segment of 90%. 3. Orthostatic hypotension. 4. Autonomic dysfunction. 5. Type 2 diabetes mellitus with multiple complications. 6. Coronary artery disease, status post stent placement. 7. Congestive heart failure, ischemic cardiomyopathy with an ejection fraction of 45%. 8. History of pulmonary embolism and deep vein thrombosis. 9. Chronic lymphatic leukemia. 10. Peripheral neuropathy. 11. Old bilateral thalami in the right basal ganglia infarct, currently asymptomatic. RY SPRAGUE MD DR: JAN/jacinto JOB#: [id number] / [id number]
[2016-12-15 08:26] LABS: METANEPH UR 144 ug/L (Undefined); NORMETANEPHRINES UR 486 ug/L (Undefined); TOTAL METANEPHRINES UR 140 ug/24 hr (45-290)
== END 2016-12-11 12:50 | disposition home health service (06) | DRG 65 ==
LOC: 1 WEST ICU 13:15 → 2 NORTH 12-10 17:10
PROVIDERS: ADMIT Internal Medicine; ATTEND Internal Medicine
PROC: B33 Imaging, Upper Arteries, Magnetic Resonance Imaging (MRI) (ICD-10-PCS; principal; 2016-12-08)
DX: I63.9 Cerebral infarction, unspecified (principal); C91.10 Chronic lymphocytic leukemia of B-cell type not having achieved remission; E44.0 Moderate protein-calorie malnutrition; I66.9 Occlusion and stenosis of unspecified cerebral artery; I50.9 Heart failure, unspecified; I11.0 Hypertensive heart disease with heart failure; E11.42 Type 2 diabetes mellitus with diabetic polyneuropathy; G81.91 Hemiplegia, unspecified affecting right dominant side; E78.5 Hyperlipidemia, unspecified; I25.10 Atherosclerotic heart disease of native coronary artery without angina pectoris; E66.9 Obesity, unspecified; I25.5 Ischemic cardiomyopathy; R09.02 Hypoxemia; I48.0 Paroxysmal atrial fibrillation; I95.1 Orthostatic hypotension; J44.9 Chronic obstructive pulmonary disease, unspecified; Z79.02 Long term (current) use of antithrombotics/antiplatelets; Z79.82 Long term (current) use of aspirin; Z82.49 Family history of ischemic heart disease and other diseases of the circulatory system; Z85.828 Personal history of other malignant neoplasm of skin; Z68.26 Body mass index [BMI] 26.0-26.9, adult; Z86.711 Personal history of pulmonary embolism; Z86.718 Personal history of other venous thrombosis and embolism; Z87.891 Personal history of nicotine dependence; Z91.81 History of falling; Z95.5 Presence of coronary angioplasty implant and graft; Z95.1 Presence of aortocoronary bypass graft; Z81.1 Family history of alcohol abuse and dependence; Z90.49 Acquired absence of other specified parts of digestive tract
CPT/HCPCS: 36415; 70544; 70551; 80053; 80061; 82962; 84443; 85025; 85027; 87641; J0360; J1650; J3490; J7042; 97116; 97530; 97535

== ENCOUNTER 2017-12-01 11:52 | Emergency (ER) | payer OTHER ==
[~2017-12-01] VITALS: Ht 182.9 cm; Wt 98.4 kg
[~2017-12-01 11:52] MED LIST changes: -AMIO200T2 PO; +AMIO200T4 PO; -METF-620 PO; +METF10007 PO; +METF500T16 PO; -METF500T4 PO; -METO50TA2 PO; +METO50TA6 PO
--- NOTE | 2017-12-01 12:50 | EKG ---
[facility] [address] [place] [address] Test Date: 2017-12-01 Test Time: 11:58:04 Pat Name: LOYDA BOONE Department: Room: Gender: Studio Technician Video Operator: : [id number] Requested By: DEBBIE ZAVALA Order Number: [id number] Reading MD: Torrey Bruner Measurements Intervals [place] Rate: 68 P: -45 SD: 198 QRS: -30 QRSD: 164 T: 130 QT: 482 QTc: 518 Interpretive Statements SINUS RHYTHM ABNORMAL LEFT AXIS DEVIATION LEFT BUNDLE BRANCH BLOCK ABNORMAL ECG Electronically Signed On 12-06-2017 10:23:39 CDT by Torrey Bruner
--- NOTE | 2017-12-01 13:22 | RAD ---
EXAM: Head CT without contrast. HISTORY: Fall. TECHNIQUE: Computed tomographic images of the head were obtained without contrast. *One or more of the following individualized dose reduction techniques were utilized for this examination: 1. Automated exposure control. 2. Adjustment of the mA and/or kV according to patient size. 3. Use of iterative reconstruction technique. COMPARISON: Brain MRI dated 12/08/2016. FINDINGS: There is stable increased left greater than right extra-axial space along the cerebral convexities due to cerebral atrophy. The possibility of stable chronic effusions/hematomas is not excluded. There is no acute or subacute hemorrhage. There is no mass effect or midline shift. There is no hydrocephalus. There are areas of decreased attenuation within the cerebral white matter, nonspecific and likely related to chronic small vessel disease. There are chronic lacunar infarcts within the bilateral basal ganglia. There is a small right maxillary sinus mucous retention cyst. The orbits and mastoid air cells are unremarkable. No suspicious calvarial lesion is seen. IMPRESSION: 1. No acute intracranial finding. 2. Scattered white matter changes due to chronic small vessel disease and chronic bilateral basal ganglia lacunar infarcts. 3. Cerebral atrophy. Electronically signed by: Yolanda Keith MD (12/01/2017 1:19 PM) [id number]
[2017-12-01 13:49] LABS: BASO % 0 % (0-3); EOS # 0.1 x10^3/uL (0.0-0.7); EOS % 1 % (0-3); HEMATOCRIT 38.6 % (39.0-53.0); HEMOGLOBIN 12.9 g/dL (13.0-17.5); LYMPH # 0.7 x10^3/uL (1.0-4.8); LYMPH % 7 % (24-48); MEAN CORPUSCULAR HEMOGLOBIN 31 pg (25-35); MEAN CORPUSCULAR HGB CONC 33 g/dL (31-37); MEAN CORPUSCULAR VOLUME 94 fL (79-100); MONO % 9 % (0-9); NEUT # 9.1 x10^3uL (1.8-7.7); NEUT % 83 % (31-73); PLATELET COUNT 169 x10^3/uL (140-400); RED BLOOD COUNT 4.12 x10^6/uL (4.30-5.70); RED CELL DISTRIBUTION WIDTH 15.2 % (11.5-14.5)
[2017-12-01 14:02] LABS: CALCIUM 8.8 mg/dL (8.5-10.1); CREATININE 2.1 mg/dL (0.7-1.3); GFR 30.3; POTASSIUM 5.1 mmol/L (3.5-5.1)
--- NOTE | 2017-12-01 14:02 | RAD ---
EXAM: Left knee, 3 views; chest, single view. HISTORY: Fall. Shortness of air. COMPARISON: None. FINDINGS: Chest: A frontal view of the chest is obtained. There is no infiltrate, pleural effusion or pneumothorax. There is a prominent cardiac silhouette and evidence of prior CABG. Left knee: 3 views the left knee are obtained. There is mild medial compartment joint space narrowing and minimal spurring. There is enthesopathy along the patella. There is trace joint fluid without a significant effusion. There are vascular calcifications and clips. IMPRESSION: No acute pulmonary or osseous finding. Electronically signed by: Yolanda Keith MD (12/01/2017 1:58 PM) [place] [id number]
[2017-12-01 14:17] LABS: PROTHROMBIN TIME PATIENT 13.7 SEC (11.7-14.0)
[2017-12-01 14:20] LABS: D-DIMER 1.36 ug/mlFEU (0.00-0.50)
--- NOTE | 2017-12-01 16:32 | PHYS DOC ---
Past Medical History Past Medical History: CVA, Diabetes-Type II, Other Additional Past Medical Histor: CLL,PE Past Surgical History: Angioplasty, Appendectomy, Coronary Bypass Surgery, Other Additional Past Surgical Histo: CARDIAC STENTS Alcohol Use: Rarely Drug Use: None Adult General Chief Complaint Chief Complaint: MECHANICAL FALL HPI HPI Patient is a 82 year old with history of diabetes type 2, CVA, CLL, who presents today from the oncologist's, patient states he was ambulating to the scale at the doctor's office when he fell. Patient denies any loss of consciousness. Denies hitting his head on the ground. Patient is in the ED with the . states patient has history of chronic shortness of breath and she feels it slightly increased than normal. Patient himself states he was sent to the ED to be evaluated to make sure he does not have a blood clot. Patient denies being on blood thinners, he states he has history of PE 3 years ago, he states he took blood thinners for a while and then they stopped it. Patient denies any chest pain or shortness of breath. Denies any recent hospitalization. Denies any present long air or car rides. Denies any use of hormones. Patient states he has history of cardiac stents 3 years ago. Review of Systems Review of Systems Constitutional: Denies fever or chills [] Eyes: Denies change in visual acuity, redness, or eye pain [] HENT: Denies nasal congestion or sore throat [] Respiratory: Denies cough or shortness of breath [] Cardiovascular: No additional information not addressed in HPI [] GI: Denies abdominal pain, nausea, vomiting, bloody stools or diarrhea [] : Denies dysuria or hematuria [] Musculoskeletal: Report falling. Denies back pain or joint pain [] Integument: Denies rash or skin lesions [] Neurologic: Denies headache, focal weakness or sensory changes [] All other systems were reviewed and found to be within normal limits, except as documented in this note. Allergies Allergies Allergies Coded Allergies Type Severity Reaction Last Updated Verified No Known Allergies Allergy Unknown 03/09/16 Yes Physical Exam Physical Exam Constitutional: Well developed, well nourished, no acute distress, non-toxic appearance. [] HENT: Normocephalic, atraumatic, bilateral external ears normal, oropharynx moist, no oral exudates, nose normal. [] Eyes: PERRLA, EOMI, conjunctiva normal, no discharge. [] Neck: Normal range of motion, no tenderness, supple, no stridor. [] Cardiovascular:Heart rate regular rhythm, no murmur [] Lungs & Thorax: Bilateral breath sounds clear to auscultation [] Abdomen: Bowel sounds normal, soft, no tenderness, no masses, no pulsatile masses. [] Skin: Warm, dry, no erythema, no rash. [] Back: No tenderness, no CVA tenderness. [] Extremities: No tenderness, no cyanosis, no clubbing, ROM intact, no edema. [] Neurologic: Alert and oriented X 3, normal motor function, normal sensory function, no focal deficits noted. Cranial nerves II through XII intact Psychologic: Affect normal, judgement normal, mood normal. [] Current Patient Data Vital Signs Vital Signs Date Time Temp Pulse Resp B/P (MAP) Pulse Ox O2 Delivery O2 Flow Rate FiO2 12/01/17 11:55 97.8 73 20 133/78 (96) 98 Room Air 97.8 Lab Values Laboratory Tests Test 12/01/17 12:01 12/01/17 13:20 Glucose (Fingerstick) 150 mg/dL (70-99) H White Blood Count 11.0 x10^3/uL (4.0-11.0) Red Blood Count 4.12 x10^6/uL (4.30-5.70) L Hemoglobin 12.9 g/dL (13.0-17.5) L Hematocrit 38.6 % (39.0-53.0) L Mean Corpuscular Volume 94 fL (79-100) Mean Corpuscular Hemoglobin 31 pg (25-35) Mean Corpuscular Hemoglobin Concent 33 g/dL (31-37) Red Cell Distribution Width 15.2 % (11.5-14.5) H Platelet Count 169 x10^3/uL (140-400) Neutrophils (%) (Auto) 83 % (31-73) H Lymphocytes (%) (Auto) 7 % (24-48) L Monocytes (%) (Auto) 9 % (0-9) Eosinophils (%) (Auto) 1 % (0-3) Basophils (%) (Auto) 0 % (0-3) Neutrophils # (Auto) 9.1 x10^3uL (1.8-7.7) H Lymphocytes # (Auto) 0.7 x10^3/uL (1.0-4.8) L Monocytes # (Auto) 1.0 x10^3/uL (0.0-1.1) Eosinophils # (Auto) 0.1 x10^3/uL (0.0-0.7) Basophils # (Auto) 0.0 x10^3/uL (0.0-0.2) Prothrombin Time 13.7 SEC (11.7-14.0) Prothrombin Time INR 1.1 (0.8-1.1) PTT 27 SEC (24-38) D-Dimer (Elizabeth) 1.36 ug/mlFEU (0.00-0.50) H Sodium Level 141 mmol/L (136-145) Potassium Level 5.1 mmol/L (3.5-5.1) Chloride Level 105 mmol/L (98-107) Carbon Dioxide Level 25 mmol/L (21-32) Anion Gap 11 (6-14) Blood Urea Nitrogen 37 mg/dL (8-26) H Creatinine 2.1 mg/dL (0.7-1.3) H Estimated GFR (Cockcroft-Gault) 30.3 Glucose Level 157 mg/dL (70-99) H Calcium Level 8.8 mg/dL (8.5-10.1) Troponin I Quantitative < 0.017 ng/mL (0.000-0.055) MN-[id number]-[id number]-Type Natriuretic Peptide 395 pg/mL (0-449) Laboratory Tests 12/01/17 13:20 Laboratory Tests 12/01/17 13:20 EKG EKG [] Radiology/Procedures Radiology/Procedures [] Course & Med Decision Making Course & Med Decision Making Pertinent Labs and Imaging studies reviewed. (See chart for details) 82-year-old male presenting to the ED today from the oncologist office to be evaluated after falling. Patient has also had shortness of breath which is apparently chronic but they were concerned he could've a PE. D-dimer 1.36. Creatinine 2.1, BUN 37. Patient's creatinine has been noted to be going up. Last creatinine was 1.7. VQ scan is negative. O2 sats 98% on room air, respiration 20 room air, heart rate 73. Patient is in no distress. D/c home/f/u with PCP in the course of this week or next week. Dragon Disclaimer Dragon Disclaimer This electronic medical record was generated, in whole or in part, using a voice recognition dictation system. Departure Departure Impression: Primary Impression: Fall Additional Impressions: Shortness of breath Acute on chronic renal failure Disposition: ADMITTED INPATIENT Condition: STABLE Referrals: LUIS WEI (PCP) follow up in one week Patient Instructions: Fall Prevention and Home Safety, Kidney Failure, Easy-to- Read, Shortness of Breath Additional Instructions: You were evaluated in the emergency room after falling. You do not have a blood clot. Please follow-up with your primary care doctor in the next 7 days. Come back to the ED at any point symptoms worsen. Problem Qualifiers Primary Impression: Fall Encounter type: initial encounter Qualified Codes: W19.XXXA - Unspecified fall, initial encounter Additional Impressions: Acute on chronic renal failure Acute renal failure type: unspecified Chronic kidney disease stage: unspecified stage Qualified Codes: N17.9 - Acute kidney failure, unspecified; N18.9 - Chronic kidney disease, unspecified DEBBIE ZAVALA DIRECTOR FIELD SERVICES Dec 01, 2017 16:32
--- NOTE | 2017-12-01 17:07 | RAD ---
Lung scan 12/01/2017 CLINICAL HISTORY: Shortness of breath with elevated d-dimer. TECHNIQUE: After the administration of 16.0 mCi of Xenon-133 gas, ventilation images of both lungs were obtained using the gamma camera. After the intravenous administration of 6.0 mCi of Technetium 99m MAA, perfusion images of both lungs were obtained using the gamma camera. FINDINGS: Comparison is made to a portable chest radiograph performed earlier today. This demonstrates no acute pulmonary infiltrate. Homogeneous ventilation and perfusion of both lungs is seen. No unmatched perfusion defect is noted. These findings are consistent with a normal lung scan. IMPRESSION: Normal lung scan. Electronically signed by: Gagan Paiz MD (12/01/2017 5:04 PM) [facility]
[2017-12-01 17:08] VITALS: BP 116/64
== END 2017-12-01 17:41 | disposition home or self-care (01) ==
LOC: ER 11:52
DX: R06.02 Shortness of breath (principal); E11.22 Type 2 diabetes mellitus with diabetic chronic kidney disease; N18.9 Chronic kidney disease, unspecified; Z86.73 Personal history of transient ischemic attack (TIA), and cerebral infarction without residual deficits; Z90.89 Acquired absence of other organs; Z95.1 Presence of aortocoronary bypass graft; W19.XXXA Unspecified fall, initial encounter; Y93.89 Activity, other specified; Y92.89 Other specified places as the place of occurrence of the external cause; Y99.8 Other external cause status
CPT/HCPCS: 36415; 70450; 71045; 73562; 78582; 80048; 82962; 83880; 84484; 85025; 85379; 85610; 85730; 93005; 99285; A9540; A9558; 96374

== ENCOUNTER 2017-12-24 11:45 | Inpatient (IN) | payer OTHER ==
[~2017-12-24] VITALS: Ht 185.4 cm; Wt 98.4 kg
[2017-12-24] MEDS ORDERED: CLON0.2T PO (13:41)
[2017-12-24] MEDS ORDERED: SITA100T PO (13:41)
[2017-12-24] MEDS: PANTOPRAZOLE IV PUSH 40 MG VIAL. IVP SCH (14:44)
[2017-12-24] MEDS: IV NORMAL SALINE 1000ML BAG 1,000 ML IV SCH (14:44)
[2017-12-24 15:10] VITALS: BP 128/74
[2017-12-24 15:12] LABS: HEMATOCRIT 39.1 % (39.0-53.0); HEMOGLOBIN 13.3 g/dL (13.0-17.5)
[2017-12-24 19:00] VITALS: BP 137/86
[2017-12-24 23:00] VITALS: BP 173/93
[2017-12-25 03:00] VITALS: BP 140/75
[2017-12-25] MEDS: IV NORMAL SALINE 1000ML BAG 1,000 ML IV SCH ×3 (03:05→20:08)
[2017-12-25 06:35] LABS: BASO % 1 % (0-3); EOS # 0.2 x10^3/uL (0.0-0.7); EOS % 3 % (0-3); HEMATOCRIT 34.1 % (39.0-53.0); HEMOGLOBIN 11.5 g/dL (13.0-17.5); LYMPH # 1.4 x10^3/uL (1.0-4.8); LYMPH % 19 % (24-48); MEAN CORPUSCULAR HEMOGLOBIN 31 pg (25-35); MEAN CORPUSCULAR HGB CONC 34 g/dL (31-37); MEAN CORPUSCULAR VOLUME 93 fL (79-100); MONO # 0.7 x10^3/uL (0.0-1.1); MONO % 10 % (0-9); NEUT # 5.3 x10^3uL (1.8-7.7); NEUT % 68 % (31-73); PLATELET COUNT 164 x10^3/uL (140-400); RED BLOOD COUNT 3.66 x10^6/uL (4.30-5.70); WHITE BLOOD COUNT 7.8 x10^3/uL (4.0-11.0)
[2017-12-25 06:55] LABS: CALCIUM 8.8 mg/dL (8.5-10.1); CREATININE 1.4 mg/dL (0.7-1.3); GFR 48.4; POTASSIUM 3.9 mmol/L (3.5-5.1)
[2017-12-25 07:15] VITALS: BP 134/87
[2017-12-25] MEDS: PANTOPRAZOLE IV PUSH 40 MG VIAL. IVP SCH (10:16)
--- NOTE | 2017-12-25 11:02 | HP ---
ADMIT DATE: CHIEF COMPLAINT: Rectal bleeding. HISTORY OF PRESENT ILLNESS: The patient is a pleasant elderly, retired jain. He states that he has had a long history of having hemorrhoids and having a lot of blood on wiping. States he got chronic constipation. At this time, though he states he got out of bed and it dumped on to the floor, quite a bit of blood, so he presented to [facility]. They called me. We have now transferred him here for evaluation with GI. We are going to try to get him an endoscopy tomorrow. PAST MEDICAL HISTORY: Hypothyroidism, hemorrhoids. ALLERGIES: None. FAMILY HISTORY: Denies any family history of colon cancer. SOCIAL HISTORY: He does not drink, smoke or take drugs. He is a retired jain, he is . MEDICATIONS: Reviewed, please refer to the MRAD. REVIEW OF SYSTEMS: GENERAL: No history of weight change, weakness or fevers. SKIN: No bruising, hair changes or rashes. EYES: No blurred, double or loss of vision. NOSE AND THROAT: No history of nosebleeds, hoarseness or sore throat. HEART: No history of palpitations, chest pain or shortness of breath on exertion. LUNGS: Denies cough, hemoptysis, wheezing or shortness of breath. GASTROINTESTINAL: He complains of abdominal pain and bright red blood per rectum. GENITOURINARY: No history of frequency, urgency, hesitancy or nocturia. NEUROLOGIC: Denies history of numbness, tingling, tremor or weakness. PSYCHIATRIC: No history of panic, anxiety or depression. ENDOCRINE: No history of heat or cold intolerance, polyuria or polydipsia. EXTREMITIES: Denies muscle weakness, joint pain, pain on walking or stiffness. PHYSICAL EXAMINATION: VITAL SIGNS: Stable. GENERAL: He is alert, cooperative. His is present. She is good support for him. HEART: Normal S1, S2. LUNGS: Clear. ABDOMEN: Soft and tender in the left lower quadrant. EXTREMITIES: Trace edema. ENDOCRINE: No thyromegaly. LYMPHATICS: No cervical nodes. HEMATOPOIETIC: No bruising. LABORATORY DATA: Hemoglobin 7.5. ASSESSMENT AND PLAN: Gastrointestinal bleed. The patient needs to be prepped for probable colonoscopy, we will consult Dr. Hatfield. I started IV proton pump inhibitors, IV fluids. Continue his home meds, frequent labs. JAJA PEDRO DO DR: Carol JOB#: [id number] / [id number]
--- NOTE | 2017-12-25 11:38 | PDOC2 ---
GI CONSULT Reason For Consult: Rectal bleeding. HPI: HPI: 82 y/o male presented to [facility] ER yesterday after having blood per rectum; historically not with normal stool. Subsequently a few drops, but no blood since. Since here has had a loose, but otherwise normal stool w/o blood. No melena. Hemoglobin 13--13--11+ today. No associated pain. Does have h/o diverticulosis by old CT A/P here; he did not know this. Typically stools quite firm w/o diarrhea; takes no cathartics. Describes remote colonoscopy "OK ". Wt/appetite OK. No N, V. No clear signs of chronic blood loss on CBC. Did not have syncopal episode preceding the bleeding (though has h/o orthostatic hypotension). Occasional heartburn in the past w/o dysphagia; takes omeprazole daily. No PUD, GB, liver or pancreatic history. Former smoker. Nil alcohol. ASA and Plavix daily. PMH: PMH: ASHD/PCI, CLL in remission, HTN, HLP, orthostatic hypotension. S/p Appy, CABG. FH: Family History: No pertinent hx Social History: Smoke: Quit ALCOHOL: none Drugs: None ROS: GEN: Denies fevers, chills, sweats HEENT: Denies blurred vision, sore throat CV: Denies chest pain RESP: Denies shortness of air, cough GI: Per HPI : Denies hematuria, dysuria ENDO: Denies weight changes NEURO: Denies confusion, dizziness MSK: Denies weakness, joint pain/swelling SKIN: Denies jaundice, pruritus Vitals: Vitals: Vital Signs Date Time Temp Pulse Resp B/P (MAP) Pulse Ox O2 Delivery O2 Flow Rate FiO2 12/25/17 07:15 98.2 66 18 134/87 (103) 94 Nasal Cannula 2.0 98.2 Labs: Labs: Laboratory Tests Test 12/24/17 15:00 12/24/17 17:05 12/25/17 05:15 Hemoglobin 13.3 g/dL (13.0-17.5) 11.5 g/dL (13.0-17.5) Hematocrit 39.1 % (39.0-53.0) 34.1 % (39.0-53.0) Glucose (Fingerstick) 119 mg/dL (70-99) White Blood Count 7.8 x10^3/uL (4.0-11.0) Red Blood Count 3.66 x10^6/uL (4.30-5.70) Mean Corpuscular Volume 93 fL (79-100) Mean Corpuscular Hemoglobin 31 pg (25-35) Mean Corpuscular Hemoglobin Concent 34 g/dL (31-37) Red Cell Distribution Width 15.0 % (11.5-14.5) Platelet Count 164 x10^3/uL (140-400) Neutrophils (%) (Auto) 68 % (31-73) Lymphocytes (%) (Auto) 19 % (24-48) Monocytes (%) (Auto) 10 % (0-9) Eosinophils (%) (Auto) 3 % (0-3) Basophils (%) (Auto) 1 % (0-3) Neutrophils # (Auto) 5.3 x10^3uL (1.8-7.7) Lymphocytes # (Auto) 1.4 x10^3/uL (1.0-4.8) Monocytes # (Auto) 0.7 x10^3/uL (0.0-1.1) Eosinophils # (Auto) 0.2 x10^3/uL (0.0-0.7) Basophils # (Auto) 0.0 x10^3/uL (0.0-0.2) Sodium Level 142 mmol/L (136-145) Potassium Level 3.9 mmol/L (3.5-5.1) Chloride Level 107 mmol/L (98-107) Carbon Dioxide Level 23 mmol/L (21-32) Anion Gap 12 (6-14) Blood Urea Nitrogen 20 mg/dL (8-26) Creatinine 1.4 mg/dL (0.7-1.3) Estimated GFR (Cockcroft-Gault) 48.4 Glucose Level 132 mg/dL (70-99) Calcium Level 8.8 mg/dL (8.5-10.1) Allergies: Coded Allergies: No Known Allergies (Verified Allergy, Unknown, 03/09/16) Medications: Current Medications Medications (Trade) Dose Ordered Sig/Musa Route PRN Reason Start Time Stop Time Status Last Admin Dose Admin Pantoprazole Sodium (PROTONIX VIAL for IV PUSH) 40 mg DAILYAC IVP 12/24/17 14:00 12/25/17 10:16 Sodium Chloride 1,000 ml @ 75 mls/hr [id number] IV 12/24/17 13:45 12/25/17 03:05 Imaging: Imaging: None to review. PE: GEN: NAD HEENT: Atraumatic, PERRLA LUNGS: CTAB HEART: RRR, no murmurs ABD: NABS, S/ND, mild LLQ tenderness, no masses EXTREMITY: No edema SKIN: No rashes, no jaundice NEURO/PSYCH: A & O 3 A/P: A/P: IMP: Rectal bleeding. Brevity and nature of bleeding suggest local anal source ; since painless probably hemorrhoidal, aggravated by ASA/Plavix. Diverticulosis. Has some tenderness; diverticulitis possible, though doubt. Heartburn, stable on PPI. REC: CT A/P--do not think we'll see an issue, but to be sure. PO PPI and continue clears another day. If no further bleeding, advance diet. Could consider colonoscopy, preferably when can be off ASA/Plavix for 5 days. --other pending. Thank you for allowing me to assist in the care of this patient. Please call if questions. ARSH AJNE MD Dec 25, 2017 11:38
[2017-12-25 11:50] VITALS: BP 160/89
[2017-12-25 15:10] VITALS: BP 195/105
[2017-12-25] MEDS: AMIODARONE HCL 200 MG TABLET. PO SCH (15:10)
[2017-12-25] MEDS: LINAGLIPTIN 5 MG TABLET PO SCH (15:11)
--- NOTE | 2017-12-25 15:19 | RAD ---
PQRS Compliance Statement: One or more of the following individualized dose reduction techniques were utilized for this examination: 1. Automated exposure control 2. Adjustment of the mA and/or kV according to patient size 3. Use of iterative reconstruction technique CT ABDOMEN PELVIS WO CONTRAST Clinical Indication: rectal bleeding/llq tenderness Comparison: CT abdomen and pelvis with contrast, August 24, 2013. Technique: Helical CT imaging of the abdomen and pelvis is performed without IV or oral contrast. Findings: Evaluation of solid organs and bowel is limited without oral and IV contrast, decreasing sensitivity for detection of pathology. Median sternotomy wires and changes of CABG. Cardiac size normal. Mild scarring in the lung bases. Atherosclerotic and ectatic abdominal aorta. The liver, gallbladder, spleen, pancreas, and adrenal glands are normal. No hydronephrosis. Stable left renal cyst. Stomach unremarkable. No dilated small bowel. Sigmoid colon is decompressed, limiting evaluation. There is wall thickening and minimal surrounding induration of the descending colon. The more proximal colon is normal. The appendix is not identified, no secondary signs of appendicitis. No abdominal adenopathy or free fluid. The urinary bladder is normal. Prostate size normal. No pelvic free fluid. Degenerative spondylosis of the thoracolumbar spine. IMPRESSION: Wall thickening of the descending colon with minimal surrounding induration suggestive of nonspecific colitis. Etiologies include infectious, inflammatory bowel disease, or ischemic. Electronically signed by: Shiraz Slade MD (12/25/2017 3:16 PM) [facility]
[2017-12-25 19:00] VITALS: BP 214/119
[2017-12-25] MEDS ORDERED: ATORVASTATIN CALCIUM 40 MG TABLET. PO SCH (21:00)
[2017-12-25] MEDS ORDERED: cloNIDine HCL 0.2 MG TABLET PO SCH (21:00)
[2017-12-25 23:00] VITALS: BP 169/100
[2017-12-26 03:00] VITALS: BP 131/71
[2017-12-26 04:02] LABS: BASO # 0.1 x10^3/uL (0.0-0.2); BASO % 1 % (0-3); EOS # 0.3 x10^3/uL (0.0-0.7); EOS % 4 % (0-3); HEMATOCRIT 32.8 % (39.0-53.0); HEMOGLOBIN 11.3 g/dL (13.0-17.5); LYMPH # 1.1 x10^3/uL (1.0-4.8); LYMPH % 17 % (24-48); MEAN CORPUSCULAR HEMOGLOBIN 32 pg (25-35); MEAN CORPUSCULAR HGB CONC 35 g/dL (31-37); MEAN CORPUSCULAR VOLUME 92 fL (79-100); MONO # 0.7 x10^3/uL (0.0-1.1); MONO % 10 % (0-9); NEUT # 4.7 x10^3uL (1.8-7.7); NEUT % 68 % (31-73); PLATELET COUNT 168 x10^3/uL (140-400); RED BLOOD COUNT 3.57 x10^6/uL (4.30-5.70); RED CELL DISTRIBUTION WIDTH 14.6 % (11.5-14.5)
[2017-12-26 04:27] LABS: CALCIUM 8.6 mg/dL (8.5-10.1); CREATININE 1.3 mg/dL (0.7-1.3); GFR 52.7; POTASSIUM 3.9 mmol/L (3.5-5.1)
[2017-12-26 07:00] VITALS: BP 130/80
[2017-12-26] MEDS ORDERED: PANTOPRAZOLE 40 MG TABLET.DR. PO SCH (07:30)
[2017-12-26] MEDS: LINAGLIPTIN 5 MG TABLET PO SCH (08:35)
[2017-12-26] MEDS: AMIODARONE HCL 200 MG TABLET. PO SCH (08:36)
[2017-12-26 11:00] VITALS: BP 113/74
--- NOTE | 2017-12-26 11:36 | PDOC ---
Subjective: Subjective: Denies bleeding. Denies pain. Tolerated regular food this morning. Would like to go home. Objective: Vital Signs: Vital Signs Date Time Temp Pulse Resp B/P (MAP) Pulse Ox O2 Delivery O2 Flow Rate FiO2 12/26/17 08:36 71 130/80 12/26/17 08:00 Room Air 12/26/17 07:00 97.5 20 93 97.5 12/25/17 19:45 2.0 Labs: Laboratory Tests Test 12/26/17 03:25 White Blood Count 7.0 x10^3/uL Red Blood Count 3.57 x10^6/uL Hemoglobin 11.3 g/dL Hematocrit 32.8 % Mean Corpuscular Volume 92 fL Mean Corpuscular Hemoglobin 32 pg Mean Corpuscular Hemoglobin Concent 35 g/dL Red Cell Distribution Width 14.6 % Platelet Count 168 x10^3/uL Neutrophils (%) (Auto) 68 % Lymphocytes (%) (Auto) 17 % Monocytes (%) (Auto) 10 % Eosinophils (%) (Auto) 4 % Basophils (%) (Auto) 1 % Neutrophils # (Auto) 4.7 x10^3uL Lymphocytes # (Auto) 1.1 x10^3/uL Monocytes # (Auto) 0.7 x10^3/uL Eosinophils # (Auto) 0.3 x10^3/uL Basophils # (Auto) 0.1 x10^3/uL Sodium Level 140 mmol/L Potassium Level 3.9 mmol/L Chloride Level 106 mmol/L Carbon Dioxide Level 23 mmol/L Anion Gap 11 Blood Urea Nitrogen 14 mg/dL Creatinine 1.3 mg/dL Estimated GFR (Cockcroft-Gault) 52.7 Glucose Level 144 mg/dL Calcium Level 8.6 mg/dL Imaging: CT A/P IMPRESSION: Wall thickening of the descending colon with minimal surrounding induration suggestive of nonspecific colitis. Etiologies include infectious, inflammatory bowel disease, or ischemic. PE: GEN: NAD LUNGS: clear anteriorly HEART: RRR ABD: S/ND/NT NEURO/PSYCH: A & O 3 A/P: Rectal bleeding, abd pain - resolved -Hgb stable around 11, on ASA and Plavix prior to admission -on CT: ?ischemic colitis -- Improved. DC soon? Will review restarting Plavix and ASA w/ Dr. Hatfield. SHAYNA MARTEL Dec 26, 2017 11:36
[2017-12-26 14:43] VITALS: BP 124/60
--- NOTE | 2017-12-26 14:45 | PDOC3 ---
Discharge Summary [facility] Date of Admission: Dec 24, 2017 Discharge Date: Dec 26, 2017 Admitting Diagnosis lower gib, hemorrhoids constipation h/o CAD with CABG hypothyroidism cll in remission CONSULTS gi Brief Hospital Course Mr. Herrera is a 82 old M, came for rectal bleeding. he said after having a BM on Sat, he saw some blood coming out of rectum, red. hb 13, today 11.3, and bm yesterday and today, brown, no blood. has h/o hemorrhoids, CT abd non specific colitis. No N/V, no abd pain. ok to dc as per gi, fu with outpt for colonoscopy, ok to cont plavix. dc time 35min. GENERAL: He is alert, cooperative. His is present. She is good support for him. HEART: Normal S1, S2. LUNGS: Clear. ABDOMEN: Soft and tender in the left lower quadrant. EXTREMITIES: Trace edema. ENDOCRINE: No thyromegaly. LYMPHATICS: No cervical nodes. HEMATOPOIETIC: No bruising. Disposition home CONDITION AT DISCHARGE: Improved Scheduled Amiodarone Hcl (Amiodarone Hcl), 1 TAB PO DAILY Aspirin (Aspirin Ec), 1 TAB PO DAILY Atorvastatin Calcium (Atorvastatin Calcium), 1 TAB PO QHS, (Reported) Clonidine Hcl (Clonidine Hcl), 0.2 PO DAILYWSUP, (Reported) Clopidogrel Bisulfate (Clopidogrel), 1 TAB PO DAILY, (Reported) Metformin Hcl (Metformin Hcl), 0.5 TAB PO BIDAC, (Reported) Omeprazole (Omeprazole), 40 MG PO DAILY, (Reported) Sitagliptin Phosphate (Januvia), 100 MG PO DAILY, (Reported) MELA GAMEZ MD Dec 26, 2017 14:45
== END 2017-12-26 15:41 | disposition home or self-care (01) | DRG 378 ==
LOC: 5 SOUTH 12:30
PROVIDERS: ADMIT Internal Medicine; ATTEND Internal Medicine
DX: K92.2 Gastrointestinal hemorrhage, unspecified (principal); C91.11 Chronic lymphocytic leukemia of B-cell type in remission; K55.9 Vascular disorder of intestine, unspecified; E03.9 Hypothyroidism, unspecified; E78.5 Hyperlipidemia, unspecified; I10 Essential (primary) hypertension; I25.10 Atherosclerotic heart disease of native coronary artery without angina pectoris; K59.09 Other constipation; K64.9 Unspecified hemorrhoids; Z87.891 Personal history of nicotine dependence; Z95.1 Presence of aortocoronary bypass graft; Z79.899 Other long term (current) drug therapy
CPT/HCPCS: 36415; 74176; 80048; 82962; 85014; 85018; 85025; C9113; J7030

== ENCOUNTER 2018-01-04 12:44 | Inpatient (IN) | payer OTHER ==
[~2018-01-04] VITALS: Ht 185.4 cm; Wt 99.4 kg
[~2018-01-04 12:44] MED LIST changes: +CLON0.2T PO; +SITA100T PO
[2018-01-04] MEDS ORDERED: IV NORMAL SALINE 1000ML BAG 1,000 ML IV SCH (12:49)
--- NOTE | 2018-01-04 13:08 | PHYS DOC ---
Past Medical History Past Medical History: CVA, Diabetes-Type II, High Cholesterol, Hypertension, [place] , Other Additional Past Medical Histor: CLL,PE, CARDIAC ARREST Past Surgical History: Angioplasty, Appendectomy, Coronary Bypass Surgery, Other Additional Past Surgical Histo: CARDIAC STENTS Alcohol Use: Rarely Drug Use: None Adult General Chief Complaint Chief Complaint: SYNCOPE HPI HPI Patient is an 82-year-old male who presents to the emergency department via [facility]. The patient was reportedly in his doctor's office, on the campus of [facility], when he stood up and reportedly had a syncopal episode. He states he doesn't think he passed completely out. However EMS reported that the patient was reported to them to be completely unresponsive initially. He complained of shortness of breath and EMS found the patient with an oxygen saturation in the 70s, which improved to the 90s with a nasal cannula. The patient arrives in the emergency department feeling very comfortable. EMS activated the STEMI, because they were concerned that the patient had a left bundle-branch block which, according to the PCP, appeared to be new. 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 He is not having any chest pain. He denies any shortness of breath at this time. He states he has had some blood in his stool over the past few weeks, but nothing worse than when he left the hospital. He has not had any back pain, pleuritic chest pain, numbness, weakness. He did not have any warning before his syncopal episode. There are no alleviating, or exacerbating factors to his symptoms otherwise. Review of Systems Review of Systems Constitutional: Denies fever or chills [] Eyes: Denies change in visual acuity, redness, or eye pain [] HENT: Denies nasal congestion or sore throat [] Respiratory: Denies cough or pleuritic pain. Reports having shortness of breath earlier, denies shortness of breath at this time.[] Cardiovascular: No additional information not addressed in HPI [] GI: Denies abdominal pain, nausea, vomiting, or diarrhea [] : Denies dysuria or hematuria [] Musculoskeletal: Denies back pain or joint pain [] Integument: Denies rash or skin lesions [] Neurologic: Denies headache, focal weakness or sensory changes [] Endocrine: Denies polyuria or polydipsia [] All other systems were reviewed and found to be within normal limits, except as documented in this note. Current Medications Current Medications Current Medications Medications (Trade) Dose Ordered Sig/Musa Start Time Stop Time Status Last Admin Dose Admin Acetaminophen (Tylenol) 650 mg PRN Q6HRS PRN 01/04/18 13:45 Al Hydroxide/Mg Hydroxide (Mylanta Plus Xs) 30 ml PRN Q3HRS PRN 01/04/18 13:45 Amiodarone HCl (Cordarone) 200 mg DAILY 01/05/18 09:00 UNV Aspirin (Ecotrin) 325 mg DAILY 01/05/18 09:00 UNV Atorvastatin Calcium (Lipitor) 40 mg QHS 01/04/18 21:00 UNV Bisacodyl (Dulcolax Supp) 10 mg PRN DAILY PRN 01/04/18 13:45 Calcium Carbonate/ Glycine (Tums) 500 mg PRN Q3HRS PRN 01/04/18 13:45 Clonidine HCl (Catapres) 0.2 mg DAILYWSUP 01/04/18 17:00 UNV Clopidogrel Bisulfate (Plavix) 75 mg DAILY 01/05/18 09:00 UNV Dextrose (Dextrose 50%-Water Syringe) 12.5 gm PRN Q15MIN PRN 01/04/18 13:45 Insulin Human Lispro (HumaLOG) 0-9 UNITS TIDWMEALS 01/04/18 17:00 UNV Ketorolac Tromethamine (Toradol 15mg Vial) 15 mg PRN Q6HRS PRN 01/04/18 13:45 01/09/18 13:44 Magnesium Hydroxide (Milk Of Magnesia) 2,400 mg PRN Q12HR PRN 01/04/18 13:45 Morphine Sulfate (Morphine Sulfate) 1 mg PRN Q1HR PRN 01/04/18 13:45 Non-Formulary Medication (Metformin Hcl ) 0.5 tab BIDAC 01/04/18 16:30 UNV Non-Formulary Medication (Omeprazole ) 40 mg DAILY 01/05/18 09:00 UNV Non-Formulary Medication (Sitagliptin Phosphate (Januvia)) 100 mg DAILY 01/05/18 09:00 UNV Ondansetron HCl (Zofran) 4 mg PRN Q6HRS PRN 01/04/18 13:45 Oxycodone HCl (Roxicodone) 5 mg PRN Q3HRS PRN 01/04/18 13:45 Prochlorperazine Edisylate (Compazine) 10 mg PRN Q6HRS PRN 01/04/18 13:45 Sodium Chloride 1,000 ml @ 100 mls/hr Q10H 01/04/18 12:49 01/04/18 22:48 01/04/18 12:49 100 MLS/HR Allergies Allergies Allergies Coded Allergies Type Severity Reaction Last Updated Verified No Known Allergies Allergy Unknown 03/09/16 Yes Physical Exam Physical Exam PHYSICAL EXAM: CONSTITUTIONAL: Well developed, well nourished HEAD: normocephalic, atraumatic EENT: PERRL, EOMI. Conjunctivae appear mildly pale, sclerae non-icteric; moist mucous membranes. NECK: Supple, non-tender; no meningismus. LUNGS: Lungs CTA, breathing even and unlabored. Normal air movement. HEART: Regular rate and rhythm, no murmur CHEST: No deformity; non-tender ABDOMEN: The abdomen is soft, and non-tender, no masses or bruits. EXTREM: Normal ROM; no deformity, no calf tenderness. Normal pulses palpable in all extremities. There is no pedal edema. SKIN: No rash; no diaphoresis NEURO: Alert; normal speech and cognition; CN's grossly intact; strength grossly intact without focal deficit. BACK: No CVA TTP. Current Patient Data Vital Signs Vital Signs Date Time Temp Pulse Resp B/P (MAP) Pulse Ox O2 Delivery O2 Flow Rate FiO2 01/04/18 13:15 58 17 146/80 (102) 98 01/04/18 12:44 98.0 Room Air 98.0 Lab Values Laboratory Tests Test 01/04/18 12:58 White Blood Count 9.1 x10^3/uL (4.0-11.0) Red Blood Count 3.95 x10^6/uL (4.30-5.70) L Hemoglobin 12.5 g/dL (13.0-17.5) L Hematocrit 37.2 % (39.0-53.0) L Mean Corpuscular Volume 94 fL (79-100) Mean Corpuscular Hemoglobin 32 pg (25-35) Mean Corpuscular Hemoglobin Concent 34 g/dL (31-37) Red Cell Distribution Width 14.8 % (11.5-14.5) H Platelet Count 217 x10^3/uL (140-400) Neutrophils (%) (Auto) 69 % (31-73) Lymphocytes (%) (Auto) 16 % (24-48) L Monocytes (%) (Auto) 11 % (0-9) H Eosinophils (%) (Auto) 4 % (0-3) H Basophils (%) (Auto) 1 % (0-3) Neutrophils # (Auto) 6.3 x10^3uL (1.8-7.7) Lymphocytes # (Auto) 1.4 x10^3/uL (1.0-4.8) Monocytes # (Auto) 1.0 x10^3/uL (0.0-1.1) Eosinophils # (Auto) 0.3 x10^3/uL (0.0-0.7) Basophils # (Auto) 0.1 x10^3/uL (0.0-0.2) Prothrombin Time 12.8 SEC (11.7-14.0) Prothrombin Time INR 1.0 (0.8-1.1) Sodium Level 139 mmol/L (136-145) Potassium Level 4.6 mmol/L (3.5-5.1) Chloride Level 104 mmol/L (98-107) Carbon Dioxide Level 27 mmol/L (21-32) Anion Gap 8 (6-14) Blood Urea Nitrogen 32 mg/dL (8-26) H Creatinine 1.8 mg/dL (0.7-1.3) H Estimated GFR (Cockcroft-Gault) 36.2 BUN/Creatinine Ratio 18 (6-20) Glucose Level 175 mg/dL (70-99) H Calcium Level 9.1 mg/dL (8.5-10.1) Total Bilirubin 0.5 mg/dL (0.2-1.0) Aspartate Amino Transferase (AST) 22 U/L (15-37) Alanine Aminotransferase (ALT) 28 U/L (16-63) Alkaline Phosphatase 97 U/L (46-116) Creatine Kinase 107 U/L (39-308) Creatine Kinase MB (Mass) 1.6 ng/mL (0.0-3.6) Creatine Kinase MB Relative Index 1.5 % (0-4) Troponin I Quantitative < 0.017 ng/mL (0.000-0.055) AK-Wtk-U-Type Natriuretic Peptide 659 pg/mL (0-449) H Total Protein 7.2 g/dL (6.4-8.2) Albumin 3.3 g/dL (3.4-5.0) L Albumin/Globulin Ratio 0.8 (1.0-1.7) L Lipase 111 U/L (73-393) Laboratory Tests 01/04/18 12:58 Laboratory Tests 01/04/18 12:58 EKG EKG [Normal sinus rhythm a rate of 69 beats for minute, possible atrial flutter versus artifact, the latter favored, left axis deviation, QRS widening with left bundle-branch block with secondary repolarization abnormalities without acute ischemic ST/T changes. EKG is unchanged EKGs.] Radiology/Procedures Radiology/Procedures [] Course & Med Decision Making Course & Med Decision Making Pertinent Labs and Imaging studies reviewed. (See chart for details) [2:15 PM: The patient's condition remains stable. I spoke with the hospitalist , who accepted the patient to the hospital for further evaluation and treatment. ] Dragon Disclaimer Dragon Disclaimer This electronic medical record was generated, in whole or in part, using a voice recognition dictation system. Departure Departure Impression: Primary Impression: Syncope and collapse Disposition: ADMITTED INPATIENT Admitting Physician: Jo Peña Condition: STABLE Referrals: LUIS WEI (PCP) ART WAGONER MD Jan 04, 2018 13:08
[2018-01-04 13:16] LABS: BASO # 0.1 x10^3/uL (0.0-0.2); BASO % 1 % (0-3); EOS # 0.3 x10^3/uL (0.0-0.7); EOS % 4 % (0-3); HEMATOCRIT 37.2 % (39.0-53.0); HEMOGLOBIN 12.5 g/dL (13.0-17.5); LYMPH # 1.4 x10^3/uL (1.0-4.8); LYMPH % 16 % (24-48); MEAN CORPUSCULAR HEMOGLOBIN 32 pg (25-35); MEAN CORPUSCULAR HGB CONC 34 g/dL (31-37); MEAN CORPUSCULAR VOLUME 94 fL (79-100); MONO % 11 % (0-9); NEUT # 6.3 x10^3uL (1.8-7.7); NEUT % 69 % (31-73); PLATELET COUNT 217 x10^3/uL (140-400); RED BLOOD COUNT 3.95 x10^6/uL (4.30-5.70); RED CELL DISTRIBUTION WIDTH 14.8 % (11.5-14.5); WHITE BLOOD COUNT 9.1 x10^3/uL (4.0-11.0)
--- NOTE | 2018-01-04 13:17 | EKG ---
[facility] [address] [place] [address] Test Date: 2018-01-04 Test Time: 12:45:57 Pat Name: LOYDA BOONE Department: Room: Gender: M Typist: : [id number] Requested By: ART WAGONER Order Number: [id number] Reading MD: Jose Cid MD Measurements Intervals Delta Rate: 69 P: IN: QRS: -25 QRSD: 162 T: 142 QT: 478 QTc: 514 Interpretive Statements SR LBBB Electronically Signed On 01-05-2018 11:27:16 CDT by Jose Cid MD
[2018-01-04 13:25] LABS: PROTHROMBIN TIME PATIENT 12.8 SEC (11.7-14.0)
[2018-01-04 13:33] LABS: CALCIUM 9.1 mg/dL (8.5-10.1); CREATININE 1.8 mg/dL (0.7-1.3); GFR 36.2; POTASSIUM 4.6 mmol/L (3.5-5.1)
[2018-01-04 13:36] LABS: ALBUMIN 3.3 g/dL (3.4-5.0); ALBUMIN/GLOBULIN RATIO 0.8 (1.0-1.7); TOTAL BILIRUBIN 0.5 mg/dL (0.2-1.0); TOTAL PROTEIN 7.2 g/dL (6.4-8.2)
[2018-01-04] MEDS ORDERED: PROCHLORPERAZINE 10 MG/2 ML VIAL. IV PRN (13:45)
[2018-01-04] MEDS ORDERED: MAG HYDROX/ALUMINUM HYD/SIMETH 30 ML ORAL.SUSP PO PRN (13:45)
[2018-01-04] MEDS ORDERED: MAGNESIUM HYDROXIDE 2,400 MG/30 ML ORAL.SUSP. PO PRN (13:45)
[2018-01-04] MEDS ORDERED: oxyCODONE IR 5 MG TABLET PO PRN (13:45)
[2018-01-04] MEDS ORDERED: CALCIUM CARBONATE 500 MG TAB.CHEW PO PRN (13:45)
[2018-01-04] MEDS ORDERED: BISACODYL 10 MG SUPP.RECT. PR PRN (13:45)
[2018-01-04] MEDS ORDERED: KETOROLAC 15 MG/ML VIAL. IV PRN (13:45)
[2018-01-04] MEDS ORDERED: ONDANSETRON PF 4 MG/2 ML VIAL. IV PRN (13:45)
[2018-01-04] MEDS ORDERED: DEXTROSE 50% 25 GM / 50ML DISP.SYRIN. IV PRN (13:45)
[2018-01-04] MEDS ORDERED: ACETAMINOPHEN 325 MG TABLET. PO PRN (13:45)
[2018-01-04] MEDS ORDERED: MORPHINE SULFATE 2 MG/ML VIAL. IV PRN (13:45)
--- NOTE | 2018-01-04 13:49 | PDOC1 ---
History and Physical Date of Admission Date of Admission DATE: 01/04/18 TIME: 13:42 Identification/Chief Complaint Chief Complaint fall, near syncope in PCP office today Source Source: Caregiver, Chart review, Patient History of Present Illness History of Present Illness Very pleasant 82-year-old male, who looks younger than stated age, history of open heart surgery by our thoracic surgery group here 2 years ago, did only one week of rehabilitation postop back then, also recent admission here 2 weeks ago for GI bleed/rectal bleed rather mild. Advised to continue aspirin and Plavix given heart conditions. That has since resolved and has had no bleeding since then, HE was at his PCP today for post hospitalization follow -up visit. When he had a near fall or actually fell but no injuries, and had near-syncope at the doctor's visits. Vital signs taken there: a little bit of higher blood pressure than normal, sats are 70% transient, heart rate was otherwise okay. Here labs are still pending, he looks and feels okay. Vital signs are good. HE denies any CP, tunnel vision, extreme temps at the MD clinic , HE cant seem to identify a provoking factor except he mentions his SOA, This is not the first time this has happened. In the past his fall would also be precipitated by SOA, cannot seem to catch his breath. He would deny chest pain. Patient still drives. is concerned. Patient's main symptom is SOA, he used to be Very active but now has been limited by SOA. HE claims he has never been the same since CABG 2 yrs ago, He quit 40 years of smoking history when he was exposed to secondhand smoke from his job ER labs and CXR are still pending KNown to both our cards and pulmo group. Past Medical History Cardiovascular: AFIB, CAD, HTN, Hyperlipidemia Pulmonary: COPD, Pulmonary embolus CENTRAL NERVOUS SYSTEM: Other GI: GERD Heme/Onc: Other Hepatobiliary: Other Psych: No pertinent hx Musculoskeletal: Osteoarthritis Rheumatologic: No pertinent hx Infectious disease: No pertinent hx Renal/: Benign prostatic enlarg. Endocrine: Diabetes Past Surgical History Past Surgical History: Appendectomy, CABG, Other Family History Family History: Coronary Artery Disease, Stroke, Other Social History Smoke: Quit ALCOHOL: none Drugs: None Current Medications Current Medications Current Medications Sodium Chloride 1,000 ml @ 100 mls/hr Q10H IV Last administered on 01/04/18at 12:49; Start 01/04/18 at 12:49; Stop 01/04/18 at 22:48 Ondansetron HCl (Zofran) 4 mg PRN Q6HRS PRN IV NAUSEA/VOMITING; Start at 13:45; Status UNV Prochlorperazine Edisylate (Compazine) 10 mg PRN Q6HRS PRN IV NAUSEA/VOMITING; Start 01/04/18 at 13:45; Status UNV Al Hydroxide/Mg Hydroxide (Mylanta Plus Xs) 30 ml PRN Q3HRS PRN PO HEARTBURN / GAS; Start 01/04/18 at 13:45; Status UNV Calcium Carbonate/ Glycine (Tums) 500 mg PRN Q3HRS PRN PO UPSET STOMACH; Start 01/04/18 at 13:45; Status UNV Oxycodone HCl (Roxicodone) 5 mg PRN Q3HRS PRN PO BREAKTHROUGH PAIN; Start at 13:45; Status UNV Morphine Sulfate (Morphine Sulfate) 1 mg PRN Q1HR PRN IV PAIN; Start 01/04/18 at 13:45; Status UNV Ketorolac Tromethamine (Toradol 15mg Vial) 15 mg PRN Q6HRS PRN IV PAIN; Start 01/04/18 at 13:45; Stop 01/09/18 at 13:44; Status UNV Acetaminophen (Tylenol) 650 mg PRN Q6HRS PRN PO Headaches, Temp > 101.5F; Start 01/04/18 at 13:45; Status UNV Magnesium Hydroxide (Milk Of Magnesia) 2,400 mg PRN Q12HR PRN PO CONSTIPATION; Start 01/04/18 at 13:45; Status UNV Bisacodyl (Dulcolax Supp) 10 mg PRN DAILY PRN [place] CONSTIPATION; Start 01/04/18 at 13:45; Status UNV Active Scripts Active Amiodarone Hcl 200 Mg Tablet 1 Tab PO DAILY Aspirin Ec (Aspirin) 325 Mg Tablet.dr 1 Tab PO DAILY Reported Januvia (Sitagliptin Phosphate) 100 Mg Tablet 100 Mg PO DAILY Clonidine Hcl 0.2 Mg Tablet 0.2 PO DAILYWSUP Metformin Hcl 1,000 Mg Tablet 0.5 Tab PO BIDAC Omeprazole 40 Mg Capsule.dr 40 Mg PO DAILY Clopidogrel (Clopidogrel Bisulfate) 75 Mg Tablet 1 Tab PO DAILY Atorvastatin Calcium 40 Mg Tablet 1 Tab PO QHS Allergies Allergies: Coded Allergies: No Known Allergies (Verified Allergy, Unknown, 03/09/16) ROS Review of System As per history of present illness, the rest of ROS 14 point negative Physical Exam General: Alert, Oriented X3, Cooperative, No acute distress HEENT: Atraumatic, PERRLA, EOMI Lungs: Clear to auscultation, Normal air movement, Other (decreased breath sounds but no wheezing or crackles appreciable auscultation) Heart: S1S2, RRR, no thrills, no rubs, no gallops, no murmurs, murmurs, jugular vein distention Cardiovascular: S1, S2 Abdomen: Normal bowel sounds, Soft, No tenderness, No hepatosplenomegaly, No masses Male Genitals Exam: normal genitalia, normal prostate Rectal Exam: not examined PELVIC: Nml ext genitalia Extremities: No clubbing, No cyanosis, No edema, Normal pulses, No tenderness/ swelling Skin: No rashes, No breakdown, No significant lesion Neuro: Normal gait, Normal speech, Strength at 5/5 X4 ext, Normal tone, Sensation intact, Cranial nerves 3-12 NL, Reflexes 2+ Psych/Mental Status: Mental status NL, Mood NL Vitals Vitals Vital Signs Date Time Temp Pulse Resp B/P (MAP) Pulse Ox O2 Delivery O2 Flow Rate FiO2 01/04/18 12:44 98.0 67 16 132/99 (110) 99 Room Air 98.0 Labs Labs Laboratory Tests Test 01/04/18 12:58 White Blood Count 9.1 x10^3/uL (4.0-11.0) Red Blood Count 3.95 x10^6/uL (4.30-5.70) Hemoglobin 12.5 g/dL (13.0-17.5) Hematocrit 37.2 % (39.0-53.0) Mean Corpuscular Volume 94 fL (79-100) Mean Corpuscular Hemoglobin 32 pg (25-35) Mean Corpuscular Hemoglobin Concent 34 g/dL (31-37) Red Cell Distribution Width 14.8 % (11.5-14.5) Platelet Count 217 x10^3/uL (140-400) Neutrophils (%) (Auto) 69 % (31-73) Lymphocytes (%) (Auto) 16 % (24-48) Monocytes (%) (Auto) 11 % (0-9) Eosinophils (%) (Auto) 4 % (0-3) Basophils (%) (Auto) 1 % (0-3) Neutrophils # (Auto) 6.3 x10^3uL (1.8-7.7) Lymphocytes # (Auto) 1.4 x10^3/uL (1.0-4.8) Monocytes # (Auto) 1.0 x10^3/uL (0.0-1.1) Eosinophils # (Auto) 0.3 x10^3/uL (0.0-0.7) Basophils # (Auto) 0.1 x10^3/uL (0.0-0.2) Prothrombin Time 12.8 SEC (11.7-14.0) Prothromb Time International Ratio 1.0 (0.8-1.1) Sodium Level 139 mmol/L (136-145) Potassium Level 4.6 mmol/L (3.5-5.1) Chloride Level 104 mmol/L (98-107) Carbon Dioxide Level 27 mmol/L (21-32) Anion Gap 8 (6-14) Blood Urea Nitrogen 32 mg/dL (8-26) Creatinine 1.8 mg/dL (0.7-1.3) Estimated GFR (Cockcroft-Gault) 36.2 BUN/Creatinine Ratio 18 (6-20) Glucose Level 175 mg/dL (70-99) Calcium Level 9.1 mg/dL (8.5-10.1) Total Bilirubin 0.5 mg/dL (0.2-1.0) Aspartate Amino Transf (AST/SGOT) 22 U/L (15-37) Alanine Aminotransferase (ALT/SGPT) 28 U/L (16-63) Alkaline Phosphatase 97 U/L (46-116) Troponin I Quantitative < 0.017 ng/mL (0.000-0.055) Total Protein 7.2 g/dL (6.4-8.2) Albumin 3.3 g/dL (3.4-5.0) Albumin/Globulin Ratio 0.8 (1.0-1.7) Lipase 111 U/L (73-393) Laboratory Tests Test 01/04/18 12:58 White Blood Count 9.1 x10^3/uL (4.0-11.0) Red Blood Count 3.95 x10^6/uL (4.30-5.70) Hemoglobin 12.5 g/dL (13.0-17.5) Hematocrit 37.2 % (39.0-53.0) Mean Corpuscular Volume 94 fL (79-100) Mean Corpuscular Hemoglobin 32 pg (25-35) Mean Corpuscular Hemoglobin Concent 34 g/dL (31-37) Red Cell Distribution Width 14.8 % (11.5-14.5) Platelet Count 217 x10^3/uL (140-400) Neutrophils (%) (Auto) 69 % (31-73) Lymphocytes (%) (Auto) 16 % (24-48) Monocytes (%) (Auto) 11 % (0-9) Eosinophils (%) (Auto) 4 % (0-3) Basophils (%) (Auto) 1 % (0-3) Neutrophils # (Auto) 6.3 x10^3uL (1.8-7.7) Lymphocytes # (Auto) 1.4 x10^3/uL (1.0-4.8) Monocytes # (Auto) 1.0 x10^3/uL (0.0-1.1) Eosinophils # (Auto) 0.3 x10^3/uL (0.0-0.7) Basophils # (Auto) 0.1 x10^3/uL (0.0-0.2) Prothrombin Time 12.8 SEC (11.7-14.0) Prothromb Time International Ratio 1.0 (0.8-1.1) Sodium Level 139 mmol/L (136-145) Potassium Level 4.6 mmol/L (3.5-5.1) Chloride Level 104 mmol/L (98-107) Carbon Dioxide Level 27 mmol/L (21-32) Anion Gap 8 (6-14) Blood Urea Nitrogen 32 mg/dL (8-26) Creatinine 1.8 mg/dL (0.7-1.3) Estimated GFR (Cockcroft-Gault) 36.2 BUN/Creatinine Ratio 18 (6-20) Glucose Level 175 mg/dL (70-99) Calcium Level 9.1 mg/dL (8.5-10.1) Total Bilirubin 0.5 mg/dL (0.2-1.0) Aspartate Amino Transf (AST/SGOT) 22 U/L (15-37) Alanine Aminotransferase (ALT/SGPT) 28 U/L (16-63) Alkaline Phosphatase 97 U/L (46-116) Troponin I Quantitative < 0.017 ng/mL (0.000-0.055) Total Protein 7.2 g/dL (6.4-8.2) Albumin 3.3 g/dL (3.4-5.0) Albumin/Globulin Ratio 0.8 (1.0-1.7) Lipase 111 U/L (73-393) VTE Prophylaxis Ordered VTE Prophylaxis Devices: Yes VTE Pharmacological Prophylaxi: Yes Assessment/Plan Assessment/Plan Fall in Dr's clinic today Near syncope History CAD/CABG 2 years ago Transient Hypoxic respiratory failure-sats 70% at [facility] clinic Hypertension, CAD, dyslipidemia, GERD-chronic stable Overweight, BMI 31 Generalized weakness/deconditioning Recent rectal bleed, mild-no recurrence Plan: Observation admission, most likely Awaiting labs Supportive meds I have reconciled home meds Recs pending labs and course KEep tele Check orthostatics FAll prec CArdiac or ADA diet with SSI VIRGINIE GONZALEZ MD Jan 04, 2018 13:49
--- NOTE | 2018-01-04 13:58 | RAD ---
Portable chest, 01/04/2018: HISTORY: Shortness of breath, stents, stroke Comparison is made to a study from 12/01/2017. There has been a previous median sternotomy. The heart size is normal. No pulmonary infiltrate is seen. There is no evidence of pleural fluid. IMPRESSION: No acute cardiopulmonary abnormality is detected. Electronically signed by: Henrry Fu MD (01/04/2018 1:55 PM) [facility]
[2018-01-04 14:18] LABS: BILIRUBIN,URINE NEGATIVE (NEG); CLARITY,URINE CLEAR; COLOR,URINE YELLOW; NITRITE,URINE NEGATIVE (NEG); PROTEIN,URINE NEGATIVE (NEG-TRACE); UROBILINOGEN,URINE 0.2 mg/dL (0.2 mg/dL)
[2018-01-04 14:28] LABS: BACTERIA,URINE 0 /HPF (0-FEW); HYALINE CASTS, URINE MANY /HPF; RBC,URINE 0 /HPF (0-2); SQUAMOUS EPITHELIAL CELL,UR MOD /LPF
[2018-01-04 16:00] VITALS: BP 160/79
[2018-01-04] MEDS ORDERED: METFORMIN HCL PO SCH (16:30)
--- NOTE | 2018-01-04 16:57 | PDOC2 ---
SOY RICH ORTHODONTIC LAB TECHNICIAN 01/04/18 1657: CARDIAC CONSULT DATE OF CONSULT Date of Consult DATE: 01/04/18 TIME: 16:38 REASON FOR CONSULT Reason for Consult: near syncope REFERRING PHYSICIAN Referring Physician: Mariana SOURCE Source: Chart review, Patient HISTORY OF PRESENT ILLNESS HISTORY OF PRESENT ILLNESS This is a pleasant 82 yo female admitted for complains of lightheadedness at the PCPs office and was noted with brief episode of O2 sat in the 70s. His more significant symptom is persistent BURNHAM but he does have normal EF, his CAD is clinically stable with recent normal stress test and a month ago he had a normal V/Q scan. He still waiting for his Home O2 supply. He also almost completely passed out at the Drs office. No hypoglycemia was noted at that time. He has been having multiple episodes of this with nontraumatic falls as he is able to go down slowly. There was no CP or palpiations associated with this but he does have known orthostasis. He could not ascertain hydration adequacy but he is compliant with his medications. There has been no recent injuries or MVA as per he continues to drive. Denies any CP, nausea or vomiting or diarrhea and was previously noted with rectal bleed about 2 weeks ago which was likely associated with colitis but no further episodes since then. 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 Endocrine: Diabetes (2) Dermatology: No pertinent hx PAST SURGICAL HISTORY Past Surgical History CABG x2 02/2016, Appendectomy, Other (PCI/stent to LAD in [address] [facility] in 03/2013; bone marrow biopsy), [facility] 07/2016 FAMILY HISTORY Family History Coronary Artery Disease (father), Stroke, Other (arrhythmia ?afib) SOCIAL HISTORY Social History Smoke: No (remote tobaccoism) ALCOHOL: none Drugs: None Lives: with Family CURRENT MEDICATIONS CURRENT MEDICATIONS Current Medications Medications (Trade) Dose Ordered Sig/Musa Route PRN Reason Start Time Stop Time Status Last Admin Dose Admin Sodium Chloride 1,000 ml @ 100 mls/hr Q10H IV 01/04/18 12:49 01/04/18 22:48 01/04/18 12:49 ALLERGIES ALLERGIES: Coded Allergies: No Known Allergies (Verified Allergy, Unknown, 03/09/16) ROS Review of System 14 point ROS evaluated with pertinent positives noted per HPI PHYSICAL EXAM General: Alert, Oriented X3, Cooperative, No acute distress HEENT: Atraumatic, Mucous membr. moist/pink Lungs: Clear to auscultation, Normal air movement Heart: Regular rate (SR), Other (apical systolic murmur 2/6) Abdomen: Soft, No tenderness Extremities: No cyanosis, Other (trace LE edema) Skin: No breakdown, No significant lesion Neuro: Normal speech, Sensation intact Psych/Mental Status: Mental status NL, Mood NL MUSCULOSKELETAL: Osteoarthritic changes both hands VITALS VITALS Vital Signs Date Time Temp Pulse Resp B/P (MAP) Pulse Ox O2 Delivery O2 Flow Rate FiO2 01/04/18 15:30 58 18 179/96 (123) 98 01/04/18 12:44 98.0 Room Air 98.0 LABS Lab: Laboratory Tests Test 01/04/18 12:58 01/04/18 14:05 White Blood Count 9.1 x10^3/uL (4.0-11.0) Red Blood Count 3.95 x10^6/uL (4.30-5.70) Hemoglobin 12.5 g/dL (13.0-17.5) Hematocrit 37.2 % (39.0-53.0) Mean Corpuscular Volume 94 fL (79-100) Mean Corpuscular Hemoglobin 32 pg (25-35) Mean Corpuscular Hemoglobin Concent 34 g/dL (31-37) Red Cell Distribution Width 14.8 % (11.5-14.5) Platelet Count 217 x10^3/uL (140-400) Neutrophils (%) (Auto) 69 % (31-73) Lymphocytes (%) (Auto) 16 % (24-48) Monocytes (%) (Auto) 11 % (0-9) Eosinophils (%) (Auto) 4 % (0-3) Basophils (%) (Auto) 1 % (0-3) Neutrophils # (Auto) 6.3 x10^3uL (1.8-7.7) Lymphocytes # (Auto) 1.4 x10^3/uL (1.0-4.8) Monocytes # (Auto) 1.0 x10^3/uL (0.0-1.1) Eosinophils # (Auto) 0.3 x10^3/uL (0.0-0.7) Basophils # (Auto) 0.1 x10^3/uL (0.0-0.2) Prothrombin Time 12.8 SEC (11.7-14.0) Prothromb Time International Ratio 1.0 (0.8-1.1) Sodium Level 139 mmol/L (136-145) Potassium Level 4.6 mmol/L (3.5-5.1) Chloride Level 104 mmol/L (98-107) Carbon Dioxide Level 27 mmol/L (21-32) Anion Gap 8 (6-14) Blood Urea Nitrogen 32 mg/dL (8-26) Creatinine 1.8 mg/dL (0.7-1.3) Estimated GFR (Cockcroft-Gault) 36.2 BUN/Creatinine Ratio 18 (6-20) Glucose Level 175 mg/dL (70-99) Calcium Level 9.1 mg/dL (8.5-10.1) Total Bilirubin 0.5 mg/dL (0.2-1.0) Aspartate Amino Transf (AST/SGOT) 22 U/L (15-37) Alanine Aminotransferase (ALT/SGPT) 28 U/L (16-63) Alkaline Phosphatase 97 U/L (46-116) Creatine Kinase 107 U/L (39-308) Creatine Kinase MB (Mass) 1.6 ng/mL (0.0-3.6) Creatine Kinase MB Relative Index 1.5 % (0-4) Troponin I Quantitative < 0.017 ng/mL (0.000-0.055) RX-Atc-K-Type Natriuretic Peptide 659 pg/mL (0-449) Total Protein 7.2 g/dL (6.4-8.2) Albumin 3.3 g/dL (3.4-5.0) Albumin/Globulin Ratio 0.8 (1.0-1.7) Lipase 111 U/L (73-393) Urine Collection Type Unknown Urine Color Yellow Urine Clarity Clear Urine pH 5.0 Urine Specific [place] 1.020 Urine Protein Negative mg/dL (NEG-TRACE) Urine Glucose (UA) 100 mg/dL (NEG) Urine Ketones (Stick) Negative mg/dL (NEG) Urine Blood Negative (NEG) Urine Nitrite Negative (NEG) Urine Bilirubin Negative (NEG) Urine Urobilinogen Dipstick 0.2 mg/dL (0.2 mg/dL) Urine Leukocyte Esterase Negative (NEG) Urine RBC 0 /HPF (0-2) Urine WBC 1-4 /HPF (0-4) Urine Squamous Epithelial Cells Mod /LPF Urine Transitional Epithelial Cells Few /LPF Urine Bacteria 0 /HPF (0-FEW) Urine Hyaline Casts Many /HPF Urine Mucus Mod /LPF ECHOCARDIOGRAM ECHOCARDIOGRAM <Conclusion> The left ventricular systolic function is normal and the ejection fraction is within normal range. EF 55% Septal motion consistent with post-operative state, otherwise grossly normal wall motion. DATE: 11/08/17 1058 STRESS TEST STRESS TEST Conclusion 1. No evidence of EKG changes with stress testing. 2. Normal perfusion at stress/rest. 3. Low risk study. 4. Mild subdiaphragmatic attenuation artifact. 5. EF > 60%. DATE: 11/08/17 1249 HEART CATH HEART CATH CORONARY ANGIOGRAPHY: LM is a large caliber vessel with a distal 20% stenosis. LAD is a large caliber vessel with an ostial 80% stenosis followed by a mid patent stent. The distal vessel fills via a patent GONSALES graft. D1 is a moderate caliber vessel with a patent stent and a proximal 80% stenosis. The distal vessel fills via a patent vein graft. LCx is a moderate caliber non-dominant vessel with normal angiographic appearance. OM1 is a moderate caliber vessel with normal angiographic appearance. RCA is a large caliber dominant vessel with a patent ostia/proximal stent with mild luminal irregularities in the mid segment of up to 20%. RPDA and RPL are moderate caliber vessels with normal angiographic appearance. BYPASS ANGIOGRAPHY: GONSALES to LAD widely patent without anastomotic stenosis. SVG to D1 widely patent without anastomotic stenosis. There is a significant vessel size mismatch between the graft and [place] vessel. Conclusion 1. Patent RCA stent. 2. Patent grafts. 3. No significant change compared to 1 month ago. 4. Normal LV Function. EF 55%. Recommendations Aggressive Medical Therapy DATE: 08/04/16 1144 ASSESSMENT/PLAN ASSESSMENT/PLAN 1. 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 CAD; CABG x2, Stent to RCA, recent [facility] 07/2016, clinically stable. 4. Hx of CVA 5. PAFIB/chronic LBBB/first degree AV block: Maintaing SR. 6. HLP 7. Hx of multiple presyncope and nontraumatic falls 8. ANTONY: likely prerenal with hydration inadequacy. Recommendations 1. DAPT. ASA for stroke prevention, not a candidate for anticoagulation due to hx of recent rectal bleed and frequent falls, high risk for injury. 2. I checked his BP myself and SBP supine at 174 and sitting at 140. Discussed with RN. Would avoid laying flat. Allow SBP in the 140-150s 3. Utilize compression stockings and abdominal binder and will recheck BP positional readings. 4. Continue with amiodarone and secondary prevention measures. Pt does utilize clonidine at hs and will monitor BP trend. 5. He is not on ACEi and no BB at this time due to frequent orthostatic episodes. 6. Consult pulmonary 7. Will need further discussion in regards to driving as pt continues to do so as I would not recommend him to continue to drive. RICK FINK MD 01/05/18 0855: CARDIAC CONSULT ASSESSMENT/PLAN ASSESSMENT/PLAN Patient seen and examined 01/04/18. Agree with CORPORATE LIBRARIAN's assessment and plan. Near syncope most probably secondary to orthostasis Monitor telemetry for any significant arrhythmias Patient has history of paroxysmal SVT but has been maintaining sinus rhythm His amiodarone was stopped in November 2017 after workup for his refractory dyspnea on exertion was negative Lexiscan nuclear stress test at that time did not show any significant ischemia CAD status clinically stable Thank you for your consultation SOY RICH APRN Jan 04, 2018 16:57 RICK FINK MD Jan 05, 2018 08:55
[2018-01-04] MEDS: CLOPIDOGREL BISULFATE 75 MG TABLET PO SCH (17:00)
[2018-01-04] MEDS: ASPIRIN ENTERIC COATED 325 MG TABLET.DR. PO SCH (17:00)
[2018-01-04] MEDS: INSULIN LISPRO 300 UNITS/3 ML INSULN.PEN. SQ SCH (17:00)
[2018-01-04] MEDS: AMIODARONE HCL 200 MG TABLET. PO SCH (17:00)
[2018-01-04] MEDS: LINAGLIPTIN 5 MG TABLET PO SCH (17:00)
[2018-01-04] MEDS: PANTOPRAZOLE 40 MG TABLET.DR. PO SCH (17:00)
[2018-01-04] MEDS ORDERED: cloNIDine HCL 0.2 MG TABLET PO SCH (17:00)
--- NOTE | 2018-01-04 17:18 | EKG ---
[facility] [address] [place] [address] Test Date: 2018-01-04 Test Time: 16:10:17 Pat Name: LOYDA BOONE Department: Room: 203 1 Gender: M Leadership Recruiter: : [id number] Requested By: SOY RICH Order Number: [id number] Reading MD: Jose Cid MD Measurements Intervals Enders Rate: 60 P: 45 CO: 236 QRS: -11 QRSD: 166 T: 136 QT: 526 QTc: 526 Interpretive Statements SINUS RHYTHM 1ST DEGREE AVB LBBB Electronically Signed On 01-05-2018 11:25:51 CDT by Jose Cid MD
[2018-01-04 19:21] VITALS: BP 192/96
[2018-01-04] MEDS ORDERED: ATORVASTATIN CALCIUM 40 MG TABLET. PO SCH (21:00)
[2018-01-04 21:13] VITALS: BP_SYST 119; BP_SYST 157; BP_SYST 175; BP_DIAS 67; BP_DIAS 81; BP_DIAS 85
[2018-01-04 23:07] VITALS: BP 122/68
[2018-01-05 03:25] VITALS: BP 156/90
[2018-01-05 06:44] LABS: CALCIUM 8.3 mg/dL (8.5-10.1); CREATININE 1.4 mg/dL (0.7-1.3); GFR 48.4; POTASSIUM 4.2 mmol/L (3.5-5.1)
[2018-01-05 07:00] VITALS: BP 170/87
[2018-01-05] MEDS: INSULIN LISPRO 300 UNITS/3 ML INSULN.PEN. SQ SCH ×2 (08:00→12:00)
[2018-01-05] MEDS: LINAGLIPTIN 5 MG TABLET PO SCH (08:38)
[2018-01-05] MEDS: PANTOPRAZOLE 40 MG TABLET.DR. PO SCH (08:38)
[2018-01-05] MEDS: ASPIRIN ENTERIC COATED 325 MG TABLET.DR. PO SCH (08:38)
[2018-01-05] MEDS: AMIODARONE HCL 200 MG TABLET. PO SCH (08:38)
[2018-01-05] MEDS: CLOPIDOGREL BISULFATE 75 MG TABLET PO SCH (08:38)
[2018-01-05] MEDS ORDERED: FURO20TA3 PO (08:44)
[2018-01-05] MEDS ORDERED: LEVO125T5 PO (08:44)
[2018-01-05] MEDS ORDERED: FUROSEMIDE 20 MG TABLET PO SCH (09:00)
[2018-01-05] MEDS ORDERED: LEVOTHYROXINE 125 MCG TABLET PO SCH (09:00)
[2018-01-05 10:28] VITALS: BP 124/77
--- NOTE | 2018-01-05 11:48 | PDOC ---
SOY RICH LOGISTICS DIRECTOR 01/05/18 1148: CARDIO Progress Notes Date and Time Date of Service 01/05/2018 Time of Evaluation 1130 Subjective Subjective: No Chest Pain, No shortness of breath, No Palpitations, Other ( sitting up no dizziness) Vitals Vitals Vital Signs Date Time Temp Pulse Resp B/P (MAP) Pulse Ox O2 Delivery O2 Flow Rate FiO2 01/05/18 10:28 97.6 62 20 124/77 (93) 96 Room Air 97.6 Weight Weight [ ] Input and Output Intake and Output Intake and Output 01/05/18 07:00 Intake Total 400 ml Output Total 800 ml Balance -400 ml Intake Oral 400 ml Output Urine Total 800 ml Laboratory Labs Laboratory Tests Test 01/04/18 12:58 01/04/18 14:05 01/04/18 21:01 01/05/18 05:25 White Blood Count 9.1 x10^3/uL (4.0-11.0) Red Blood Count 3.95 x10^6/uL (4.30-5.70) Hemoglobin 12.5 g/dL (13.0-17.5) Hematocrit 37.2 % (39.0-53.0) Mean Corpuscular Volume 94 fL (79-100) Mean Corpuscular Hemoglobin 32 pg (25-35) Mean Corpuscular Hemoglobin Concent 34 g/dL (31-37) Red Cell Distribution Width 14.8 % (11.5-14.5) Platelet Count 217 x10^3/uL (140-400) Neutrophils (%) (Auto) 69 % (31-73) Lymphocytes (%) (Auto) 16 % (24-48) Monocytes (%) (Auto) 11 % (0-9) Eosinophils (%) (Auto) 4 % (0-3) Basophils (%) (Auto) 1 % (0-3) Neutrophils # (Auto) 6.3 x10^3uL (1.8-7.7) Lymphocytes # (Auto) 1.4 x10^3/uL (1.0-4.8) Monocytes # (Auto) 1.0 x10^3/uL (0.0-1.1) Eosinophils # (Auto) 0.3 x10^3/uL (0.0-0.7) Basophils # (Auto) 0.1 x10^3/uL (0.0-0.2) Prothrombin Time 12.8 SEC (11.7-14.0) Prothromb Time International Ratio 1.0 (0.8-1.1) Sodium Level 139 mmol/L (136-145) 140 mmol/L (136-145) Potassium Level 4.6 mmol/L (3.5-5.1) 4.2 mmol/L (3.5-5.1) Chloride Level 104 mmol/L (98-107) 107 mmol/L (98-107) Carbon Dioxide Level 27 mmol/L (21-32) 24 mmol/L (21-32) Anion Gap 8 (6-14) 9 (6-14) Blood Urea Nitrogen 32 mg/dL (8-26) 25 mg/dL (8-26) Creatinine 1.8 mg/dL (0.7-1.3) 1.4 mg/dL (0.7-1.3) Estimated GFR (Cockcroft-Gault) 36.2 48.4 BUN/Creatinine Ratio 18 (6-20) Glucose Level 175 mg/dL (70-99) 149 mg/dL (70-99) Calcium Level 9.1 mg/dL (8.5-10.1) 8.3 mg/dL (8.5-10.1) Total Bilirubin 0.5 mg/dL (0.2-1.0) Aspartate Amino Transf (AST/SGOT) 22 U/L (15-37) Alanine Aminotransferase (ALT/SGPT) 28 U/L (16-63) Alkaline Phosphatase 97 U/L (46-116) Creatine Kinase 107 U/L (39-308) Creatine Kinase MB (Mass) 1.6 ng/mL (0.0-3.6) Creatine Kinase MB Relative Index 1.5 % (0-4) Troponin I Quantitative < 0.017 ng/mL (0.000-0.055) HK-Izg-A-Type Natriuretic Peptide 659 pg/mL (0-449) Total Protein 7.2 g/dL (6.4-8.2) Albumin 3.3 g/dL (3.4-5.0) Albumin/Globulin Ratio 0.8 (1.0-1.7) Lipase 111 U/L (73-393) Urine Collection Type Unknown Urine Color Yellow Urine Clarity Clear Urine pH 5.0 Urine Specific [place] 1.020 Urine Protein Negative mg/dL (NEG-TRACE) Urine Glucose (UA) 100 mg/dL (NEG) Urine Ketones (Stick) Negative mg/dL (NEG) Urine Blood Negative (NEG) Urine Nitrite Negative (NEG) Urine Bilirubin Negative (NEG) Urine Urobilinogen Dipstick 0.2 mg/dL (0.2 mg/dL) Urine Leukocyte Esterase Negative (NEG) Urine RBC 0 /HPF (0-2) Urine WBC 1-4 /HPF (0-4) Urine Squamous Epithelial Cells Mod /LPF Urine Transitional Epithelial Cells Few /LPF Urine Bacteria 0 /HPF (0-FEW) Urine Hyaline Casts Many /HPF Urine Mucus Mod /LPF Glucose (Fingerstick) 141 mg/dL (70-99) Test 01/05/18 08:05 Glucose (Fingerstick) 129 mg/dL (70-99) Physical Exam HEENT: Neck Supple W Full Motion Chest: Symmetric LUNGS: Clear to Auscultation Heart: S1S2, RRR (SR), jugular vein distention Abdomen: Soft N/T Extremities: No Edema, No Calf Tenderness Neurology: alert, oriented, follow commands Assessment Assessment 1. Presyncope:due to orthostasis 2. SH-OH syndrome 2. Hypoxia/Persistent BURNHAM: unclear etiology, sill waiting on home O2. No hypoxic episodes overnight but noted with O2 sat 70s during ambulation 3. CAD; CABG x2, Stent to RCA, recent C 07/2016, clinically stable. 4. Hx of CVA 5. PAFIB/chronic LBBB/first degree AV block: Maintaining SR. 6. HLP 7. Hx of multiple presyncope and nontraumatic falls 8. ANTONY: improved with IV hydration Recommendations 1. DAPT. ASA for stroke prevention, not a candidate for anticoagulation due to hx of recent rectal bleed and frequent falls, high risk for injury. 2. Avoid supine position with supine HTN, discussed with RN. will repeat orthostatic readings now that he is hydrated. Will consider for florinef.if persistent 3. Continue to utilize compression stockings and abdominal binder. Provide x1 1L NS today. Stop low dose lasix. 4. apparently he has been taking amiodarone since this was discontinued in 2017Given that his past pulmonary workup was negative will DC amiodarone for possible link to his BURNHAM. 5. He is not on ACEi and no BB at this time due to frequent orthostatic episodes. With amiodarone stopped, will consider starting low dose metoprolol and stopping clonidine for his PAFIB 6. Pulmonary consult pending 7. I discussed with him and in regards to not driving due to significant safety reason and have his do the driving. RICK FINK MD 01/05/18 1721: CARDIO Progress Notes Assessment Assessment Patient seen and examined. Agree with SCRUM MASTER's assessment and plan. Near syncope most probably secondary to orthostasis from dehydration Symptoms improved with intravenous fluids Telemetry did not show any significant arrhythmias CAD status clinically stable Follow-up with her office in 2 weeks SOY RICH APRN Jan 05, 2018 11:48 RICK FINK MD Jan 05, 2018 17:21
--- NOTE | 2018-01-05 11:56 | PDOC ---
PROGRESS NOTES Chief Complaint Chief Complaint Fall Near syncope History CAD/CABG 2 years ago Transient Hypoxic respiratory failure H/o of HTN H/o CAD H/o dyslipidemia H/o GERD-chronic stable Recent rectal bleed, mild-no recurrence History of Present Illness History of Present Illness Pt is a very pleasant gentleman, seen and examined upright in chair Family member at bedside DW RN Pt reports that he is feeling better today, but does still have some SOA and lightheadedness when he stands. Vitals Vitals Vital Signs Date Time Temp Pulse Resp B/P (MAP) Pulse Ox O2 Delivery O2 Flow Rate FiO2 01/05/18 10:28 97.6 62 20 124/77 (93) 96 Room Air 97.6 Physical Exam General: Alert, Oriented X3, Cooperative, No acute distress Heart: Regular rate (SR), Other (SR) Lungs: Clear Abdomen: Soft, No tenderness Extremities: No cyanosis, Other (trace LE edema) Skin: No breakdown, No significant lesion Labs LABS Laboratory Tests Test 01/04/18 12:58 01/04/18 14:05 01/04/18 21:01 01/05/18 05:25 White Blood Count 9.1 x10^3/uL (4.0-11.0) Red Blood Count 3.95 x10^6/uL (4.30-5.70) Hemoglobin 12.5 g/dL (13.0-17.5) Hematocrit 37.2 % (39.0-53.0) Mean Corpuscular Volume 94 fL (79-100) Mean Corpuscular Hemoglobin 32 pg (25-35) Mean Corpuscular Hemoglobin Concent 34 g/dL (31-37) Red Cell Distribution Width 14.8 % (11.5-14.5) Platelet Count 217 x10^3/uL (140-400) Neutrophils (%) (Auto) 69 % (31-73) Lymphocytes (%) (Auto) 16 % (24-48) Monocytes (%) (Auto) 11 % (0-9) Eosinophils (%) (Auto) 4 % (0-3) Basophils (%) (Auto) 1 % (0-3) Neutrophils # (Auto) 6.3 x10^3uL (1.8-7.7) Lymphocytes # (Auto) 1.4 x10^3/uL (1.0-4.8) Monocytes # (Auto) 1.0 x10^3/uL (0.0-1.1) Eosinophils # (Auto) 0.3 x10^3/uL (0.0-0.7) Basophils # (Auto) 0.1 x10^3/uL (0.0-0.2) Prothrombin Time 12.8 SEC (11.7-14.0) Prothromb Time International Ratio 1.0 (0.8-1.1) Sodium Level 139 mmol/L (136-145) 140 mmol/L (136-145) Potassium Level 4.6 mmol/L (3.5-5.1) 4.2 mmol/L (3.5-5.1) Chloride Level 104 mmol/L (98-107) 107 mmol/L (98-107) Carbon Dioxide Level 27 mmol/L (21-32) 24 mmol/L (21-32) Anion Gap 8 (6-14) 9 (6-14) Blood Urea Nitrogen 32 mg/dL (8-26) 25 mg/dL (8-26) Creatinine 1.8 mg/dL (0.7-1.3) 1.4 mg/dL (0.7-1.3) Estimated GFR (Cockcroft-Gault) 36.2 48.4 BUN/Creatinine Ratio 18 (6-20) Glucose Level 175 mg/dL (70-99) 149 mg/dL (70-99) Calcium Level 9.1 mg/dL (8.5-10.1) 8.3 mg/dL (8.5-10.1) Total Bilirubin 0.5 mg/dL (0.2-1.0) Aspartate Amino Transf (AST/SGOT) 22 U/L (15-37) Alanine Aminotransferase (ALT/SGPT) 28 U/L (16-63) Alkaline Phosphatase 97 U/L (46-116) Creatine Kinase 107 U/L (39-308) Creatine Kinase MB (Mass) 1.6 ng/mL (0.0-3.6) Creatine Kinase MB Relative Index 1.5 % (0-4) Troponin I Quantitative < 0.017 ng/mL (0.000-0.055) OP-Slm-C-Type Natriuretic Peptide 659 pg/mL (0-449) Total Protein 7.2 g/dL (6.4-8.2) Albumin 3.3 g/dL (3.4-5.0) Albumin/Globulin Ratio 0.8 (1.0-1.7) Lipase 111 U/L (73-393) Urine Collection Type Unknown Urine Color Yellow Urine Clarity Clear Urine pH 5.0 Urine Specific [place] 1.020 Urine Protein Negative mg/dL (NEG-TRACE) Urine Glucose (UA) 100 mg/dL (NEG) Urine Ketones (Stick) Negative mg/dL (NEG) Urine Blood Negative (NEG) Urine Nitrite Negative (NEG) Urine Bilirubin Negative (NEG) Urine Urobilinogen Dipstick 0.2 mg/dL (0.2 mg/dL) Urine Leukocyte Esterase Negative (NEG) Urine RBC 0 /HPF (0-2) Urine WBC 1-4 /HPF (0-4) Urine Squamous Epithelial Cells Mod /LPF Urine Transitional Epithelial Cells Few /LPF Urine Bacteria 0 /HPF (0-FEW) Urine Hyaline Casts Many /HPF Urine Mucus Mod /LPF Glucose (Fingerstick) 141 mg/dL (70-99) Test 01/05/18 08:05 Glucose (Fingerstick) 129 mg/dL (70-99) Review of Systems Review of Systems Pt admits to some SOA and lightheadedness when he is standing. Assessment and Plan Assessmemt and Plan Assessment: Fall Near syncope History CAD/CABG 2 years ago Transient Hypoxic respiratory failure H/o of HTN H/o CAD H/o dyslipidemia H/o GERD-chronic stable Recent rectal bleed, mild-no recurrence Plan: Cardiac monitoring Agree to d/c amiodarone Consult pulmonology Monitor labs PT/OT Home meds Hope to discharge tomorrow Comment Review of Relevant I have reviewed the following items samara (where applicable) has been applied. Labs Laboratory Tests Test 01/04/18 12:58 01/04/18 14:05 01/04/18 21:01 01/05/18 05:25 White Blood Count 9.1 x10^3/uL (4.0-11.0) Red Blood Count 3.95 x10^6/uL (4.30-5.70) Hemoglobin 12.5 g/dL (13.0-17.5) Hematocrit 37.2 % (39.0-53.0) Mean Corpuscular Volume 94 fL (79-100) Mean Corpuscular Hemoglobin 32 pg (25-35) Mean Corpuscular Hemoglobin Concent 34 g/dL (31-37) Red Cell Distribution Width 14.8 % (11.5-14.5) Platelet Count 217 x10^3/uL (140-400) Neutrophils (%) (Auto) 69 % (31-73) Lymphocytes (%) (Auto) 16 % (24-48) Monocytes (%) (Auto) 11 % (0-9) Eosinophils (%) (Auto) 4 % (0-3) Basophils (%) (Auto) 1 % (0-3) Neutrophils # (Auto) 6.3 x10^3uL (1.8-7.7) Lymphocytes # (Auto) 1.4 x10^3/uL (1.0-4.8) Monocytes # (Auto) 1.0 x10^3/uL (0.0-1.1) Eosinophils # (Auto) 0.3 x10^3/uL (0.0-0.7) Basophils # (Auto) 0.1 x10^3/uL (0.0-0.2) Prothrombin Time 12.8 SEC (11.7-14.0) Prothromb Time International Ratio 1.0 (0.8-1.1) Sodium Level 139 mmol/L (136-145) 140 mmol/L (136-145) Potassium Level 4.6 mmol/L (3.5-5.1) 4.2 mmol/L (3.5-5.1) Chloride Level 104 mmol/L (98-107) 107 mmol/L (98-107) Carbon Dioxide Level 27 mmol/L (21-32) 24 mmol/L (21-32) Anion Gap 8 (6-14) 9 (6-14) Blood Urea Nitrogen 32 mg/dL (8-26) 25 mg/dL (8-26) Creatinine 1.8 mg/dL (0.7-1.3) 1.4 mg/dL (0.7-1.3) Estimated GFR (Cockcroft-Gault) 36.2 48.4 BUN/Creatinine Ratio 18 (6-20) Glucose Level 175 mg/dL (70-99) 149 mg/dL (70-99) Calcium Level 9.1 mg/dL (8.5-10.1) 8.3 mg/dL (8.5-10.1) Total Bilirubin 0.5 mg/dL (0.2-1.0) Aspartate Amino Transf (AST/SGOT) 22 U/L (15-37) Alanine Aminotransferase (ALT/SGPT) 28 U/L (16-63) Alkaline Phosphatase 97 U/L (46-116) Creatine Kinase 107 U/L (39-308) Creatine Kinase MB (Mass) 1.6 ng/mL (0.0-3.6) Creatine Kinase MB Relative Index 1.5 % (0-4) Troponin I Quantitative < 0.017 ng/mL (0.000-0.055) CI-Hbx-G-Type Natriuretic Peptide 659 pg/mL (0-449) Total Protein 7.2 g/dL (6.4-8.2) Albumin 3.3 g/dL (3.4-5.0) Albumin/Globulin Ratio 0.8 (1.0-1.7) Lipase 111 U/L (73-393) Urine Collection Type Unknown Urine Color Yellow Urine Clarity Clear Urine pH 5.0 Urine Specific [place] 1.020 Urine Protein Negative mg/dL (NEG-TRACE) Urine Glucose (UA) 100 mg/dL (NEG) Urine Ketones (Stick) Negative mg/dL (NEG) Urine Blood Negative (NEG) Urine Nitrite Negative (NEG) Urine Bilirubin Negative (NEG) Urine Urobilinogen Dipstick 0.2 mg/dL (0.2 mg/dL) Urine Leukocyte Esterase Negative (NEG) Urine RBC 0 /HPF (0-2) Urine WBC 1-4 /HPF (0-4) Urine Squamous Epithelial Cells Mod /LPF Urine Transitional Epithelial Cells Few /LPF Urine Bacteria 0 /HPF (0-FEW) Urine Hyaline Casts Many /HPF Urine Mucus Mod /LPF Glucose (Fingerstick) 141 mg/dL (70-99) Test 01/05/18 08:05 Glucose (Fingerstick) 129 mg/dL (70-99) Laboratory Tests Test 01/04/18 12:58 01/04/18 14:05 01/04/18 21:01 01/05/18 05:25 White Blood Count 9.1 x10^3/uL (4.0-11.0) Red Blood Count 3.95 x10^6/uL (4.30-5.70) Hemoglobin 12.5 g/dL (13.0-17.5) Hematocrit 37.2 % (39.0-53.0) Mean Corpuscular Volume 94 fL (79-100) Mean Corpuscular Hemoglobin 32 pg (25-35) Mean Corpuscular Hemoglobin Concent 34 g/dL (31-37) Red Cell Distribution Width 14.8 % (11.5-14.5) Platelet Count 217 x10^3/uL (140-400) Neutrophils (%) (Auto) 69 % (31-73) Lymphocytes (%) (Auto) 16 % (24-48) Monocytes (%) (Auto) 11 % (0-9) Eosinophils (%) (Auto) 4 % (0-3) Basophils (%) (Auto) 1 % (0-3) Neutrophils # (Auto) 6.3 x10^3uL (1.8-7.7) Lymphocytes # (Auto) 1.4 x10^3/uL (1.0-4.8) Monocytes # (Auto) 1.0 x10^3/uL (0.0-1.1) Eosinophils # (Auto) 0.3 x10^3/uL (0.0-0.7) Basophils # (Auto) 0.1 x10^3/uL (0.0-0.2) Prothrombin Time 12.8 SEC (11.7-14.0) Prothromb Time International Ratio 1.0 (0.8-1.1) Sodium Level 139 mmol/L (136-145) 140 mmol/L (136-145) Potassium Level 4.6 mmol/L (3.5-5.1) 4.2 mmol/L (3.5-5.1) Chloride Level 104 mmol/L (98-107) 107 mmol/L (98-107) Carbon Dioxide Level 27 mmol/L (21-32) 24 mmol/L (21-32) Anion Gap 8 (6-14) 9 (6-14) Blood Urea Nitrogen 32 mg/dL (8-26) 25 mg/dL (8-26) Creatinine 1.8 mg/dL (0.7-1.3) 1.4 mg/dL (0.7-1.3) Estimated GFR (Cockcroft-Gault) 36.2 48.4 BUN/Creatinine Ratio 18 (6-20) Glucose Level 175 mg/dL (70-99) 149 mg/dL (70-99) Calcium Level 9.1 mg/dL (8.5-10.1) 8.3 mg/dL (8.5-10.1) Total Bilirubin 0.5 mg/dL (0.2-1.0) Aspartate Amino Transf (AST/SGOT) 22 U/L (15-37) Alanine Aminotransferase (ALT/SGPT) 28 U/L (16-63) Alkaline Phosphatase 97 U/L (46-116) Creatine Kinase 107 U/L (39-308) Creatine Kinase MB (Mass) 1.6 ng/mL (0.0-3.6) Creatine Kinase MB Relative Index 1.5 % (0-4) Troponin I Quantitative < 0.017 ng/mL (0.000-0.055) OZ-Lhf-U-Type Natriuretic Peptide 659 pg/mL (0-449) Total Protein 7.2 g/dL (6.4-8.2) Albumin 3.3 g/dL (3.4-5.0) Albumin/Globulin Ratio 0.8 (1.0-1.7) Lipase 111 U/L (73-393) Urine Collection Type Unknown Urine Color Yellow Urine Clarity Clear Urine pH 5.0 Urine Specific [place] 1.020 Urine Protein Negative mg/dL (NEG-TRACE) Urine Glucose (UA) 100 mg/dL (NEG) Urine Ketones (Stick) Negative mg/dL (NEG) Urine Blood Negative (NEG) Urine Nitrite Negative (NEG) Urine Bilirubin Negative (NEG) Urine Urobilinogen Dipstick 0.2 mg/dL (0.2 mg/dL) Urine Leukocyte Esterase Negative (NEG) Urine RBC 0 /HPF (0-2) Urine WBC 1-4 /HPF (0-4) Urine Squamous Epithelial Cells Mod /LPF Urine Transitional Epithelial Cells Few /LPF Urine Bacteria 0 /HPF (0-FEW) Urine Hyaline Casts Many /HPF Urine Mucus Mod /LPF Glucose (Fingerstick) 141 mg/dL (70-99) Test 01/05/18 08:05 Glucose (Fingerstick) 129 mg/dL (70-99) Medications Current Medications Sodium Chloride 1,000 ml @ 100 mls/hr Q10H IV Last administered on 01/04/18at 12:49; Start 01/04/18 at 12:49; Stop 01/04/18 at 22:48; Status DC Ondansetron HCl (Zofran) 4 mg PRN Q6HRS PRN IV NAUSEA/VOMITING 1ST CHOICE; Start 01/04/18 at 13:45 Prochlorperazine Edisylate (Compazine) 10 mg PRN Q6HRS PRN IV NAUSEA/VOMITING 2ND CHOICE; Start 01/04/18 at 13:45 Al Hydroxide/Mg Hydroxide (Mylanta Plus Xs) 30 ml PRN Q3HRS PRN PO HEARTBURN / GAS; Start 01/04/18 at 13:45 Calcium Carbonate/ Glycine (Tums) 500 mg PRN Q3HRS PRN PO UPSET STOMACH; Start 01/04/18 at 13:45 Oxycodone HCl (Roxicodone) 5 mg PRN Q3HRS PRN PO MODERATE-SEVERE PAIN; Start 01/04/18 at 13:45 Morphine Sulfate (Morphine Sulfate) 1 mg PRN Q1HR PRN IV MODERATE-SEVERE PAIN; Start 01/04/18 at 13:45 Ketorolac Tromethamine (Toradol 15mg Vial) 15 mg PRN Q6HRS PRN IV MILD PAIN; Start 01/04/18 at 13:45; Stop 01/09/18 at 13:44 Acetaminophen (Tylenol) 650 mg PRN Q6HRS PRN PO Headaches, Temp > 101.5F; Start 01/04/18 at 13:45 Magnesium Hydroxide (Milk Of Magnesia) 2,400 mg PRN Q12HR PRN PO CONSTIPATION; Start 01/04/18 at 13:45 Bisacodyl (Dulcolax Supp) 10 mg PRN DAILY PRN IN CONSTIPATION; Start 01/04/18 at 13:45 Amiodarone HCl (Cordarone) 200 mg DAILY PO Last administered on 01/05/18at 08: 38; Start 01/04/18 at 17:00; Stop 01/05/18 at 10:21; Status DC Aspirin (Ecotrin) 325 mg DAILY PO Last administered on 01/05/18at 08:38; Start 01/04/18 at 17:00 Atorvastatin Calcium (Lipitor) 40 mg QHS PO Last administered on 01/04/18at 21: 03; Start 01/04/18 at 21:00 Clonidine HCl (Catapres) 0.2 mg DAILYWSUP PO Last administered on 01/04/18at 19 :37; Start 01/04/18 at 17:00 Clopidogrel Bisulfate (Plavix) 75 mg DAILY PO Last administered on 01/05/18at 08:38; Start 01/04/18 at 17:00 Non-Formulary Medication (Metformin Hcl ) 0.5 tab BIDAC PO ; Start 01/04/18 at 16:30; Stop 01/04/18 at 16:30; Status DC Pantoprazole Sodium (Protonix) 40 mg DAILYAC PO Last administered on at 08:38; Start 01/04/18 at 17:00 Linagliptin (Tradjenta) 5 mg DAILY PO Last administered on 01/05/18at 08:38; Start 01/04/18 at 17:00 Insulin Human Lispro (HumaLOG) 0-9 UNITS TIDWMEALS SQ ; Start 01/04/18 at 17:00 Dextrose (Dextrose 50%-Water Syringe) 12.5 gm PRN Q15MIN PRN IV SEE COMMENTS; Start 01/04/18 at 13:45 Furosemide (Lasix) 20 mg DAILY PO Last administered on 01/05/18at 11:24; Start 01/05/18 at 09:00 Levothyroxine Sodium (Synthroid) 125 mcg DAILY06 PO Last administered on at 11:24; Start 01/05/18 at 09:00 Active Scripts Active Amiodarone Hcl 200 Mg Tablet 1 Tab PO DAILY Aspirin Ec (Aspirin) 325 Mg Tablet.dr 1 Tab PO DAILY Reported Furosemide 20 Mg Tablet 20 Mg PO DAILY Levothyroxine Sodium 125 Mcg Tablet 125 Mcg PO DAILYAC Januvia (Sitagliptin Phosphate) 100 Mg Tablet 100 Mg PO DAILY Clonidine Hcl 0.2 Mg Tablet 0.2 PO DAILYWSUP Metformin Hcl 1,000 Mg Tablet 0.5 Tab PO BIDAC Omeprazole 40 Mg Capsule.dr 40 Mg PO DAILY Clopidogrel (Clopidogrel Bisulfate) 75 Mg Tablet 1 Tab PO DAILY Atorvastatin Calcium 40 Mg Tablet 1 Tab PO QHS Vitals/I & O Vital Sign - Last 24 Hours 01/04/18 01/04/18 01/04/18 01/04/18 12:44 13:15 14:00 14:30 Temp 98.0 98.0 Pulse 67 58 62 56 Resp 16 17 20 18 B/P (MAP) 132/99 (110) 146/80 (102) 144/76 (98) 164/81 (108) Pulse Ox 99 98 98 98 O2 Delivery Room Air 01/04/18 01/04/18 01/04/18 01/04/18 15:00 15:30 16:00 19:21 Temp 97.4 97.8 97.4 97.8 Pulse 56 58 73 68 Resp 20 18 18 18 B/P (MAP) 174/92 (119) 179/96 (123) 160/79 (106) 192/96 (128) Pulse Ox 98 98 98 99 O2 Delivery Room Air Room Air 01/04/18 01/04/18 01/04/18 01/04/18 19:37 20:00 21:13 23:07 Temp 98.1 98.1 Pulse 63 59 Resp 18 B/P (MAP) 158/73 175/81 (112) 122/68 (86) 157/85 (109) 119/67 (84) Pulse Ox 95 O2 Delivery Room Air Room Air 01/05/18 01/05/18 01/05/18 01/05/18 03:25 07:00 08:38 10:28 Temp 97.7 98.1 97.6 97.7 98.1 97.6 Pulse 57 61 65 62 Resp 17 20 20 B/P (MAP) 156/90 (112) 170/87 (114) 124/77 (93) Pulse Ox 95 97 96 O2 Delivery Room Air Room Air Room Air Intake and Output 01/04/18 01/04/18 01/05/18 15:00 23:00 07:00 Intake Total 400 ml Output Total 200 ml 600 ml Balance -200 ml -200 ml JAJA PEDRO III DO Jan 05, 2018 11:56
[2018-01-05] MEDS ORDERED: IV NORMAL SALINE 1000ML BAG 1,000 ML IV ONE (13:15)
[2018-01-05] MEDS ORDERED: METOPROLOL TART IMMED RELEASE 25 MG TABLET. PO SCH (13:30)
[2018-01-05 15:51] VITALS: BP 162/90
--- NOTE | 2018-01-05 16:33 | PDOC ---
PULMONARY PROGRESS NOTES Vitals Vital Signs Date Time Temp Pulse Resp B/P (MAP) Pulse Ox O2 Delivery O2 Flow Rate FiO2 01/05/18 15:51 97.7 58 20 162/90 (114) Room Air 97.0 97.7 01/05/18 10:28 96 Lungs: Clear Cardiovascular: S1, S2 Abdomen: Soft, Non-tender Extremities: No Edema Labs Laboratory Tests Test 01/04/18 12:58 01/04/18 14:05 01/04/18 21:01 01/05/18 05:25 White Blood Count 9.1 x10^3/uL (4.0-11.0) Red Blood Count 3.95 x10^6/uL (4.30-5.70) Hemoglobin 12.5 g/dL (13.0-17.5) Hematocrit 37.2 % (39.0-53.0) Mean Corpuscular Volume 94 fL (79-100) Mean Corpuscular Hemoglobin 32 pg (25-35) Mean Corpuscular Hemoglobin Concent 34 g/dL (31-37) Red Cell Distribution Width 14.8 % (11.5-14.5) Platelet Count 217 x10^3/uL (140-400) Neutrophils (%) (Auto) 69 % (31-73) Lymphocytes (%) (Auto) 16 % (24-48) Monocytes (%) (Auto) 11 % (0-9) Eosinophils (%) (Auto) 4 % (0-3) Basophils (%) (Auto) 1 % (0-3) Neutrophils # (Auto) 6.3 x10^3uL (1.8-7.7) Lymphocytes # (Auto) 1.4 x10^3/uL (1.0-4.8) Monocytes # (Auto) 1.0 x10^3/uL (0.0-1.1) Eosinophils # (Auto) 0.3 x10^3/uL (0.0-0.7) Basophils # (Auto) 0.1 x10^3/uL (0.0-0.2) Prothrombin Time 12.8 SEC (11.7-14.0) Prothromb Time International Ratio 1.0 (0.8-1.1) Sodium Level 139 mmol/L (136-145) 140 mmol/L (136-145) Potassium Level 4.6 mmol/L (3.5-5.1) 4.2 mmol/L (3.5-5.1) Chloride Level 104 mmol/L (98-107) 107 mmol/L (98-107) Carbon Dioxide Level 27 mmol/L (21-32) 24 mmol/L (21-32) Anion Gap 8 (6-14) 9 (6-14) Blood Urea Nitrogen 32 mg/dL (8-26) 25 mg/dL (8-26) Creatinine 1.8 mg/dL (0.7-1.3) 1.4 mg/dL (0.7-1.3) Estimated GFR (Cockcroft-Gault) 36.2 48.4 BUN/Creatinine Ratio 18 (6-20) Glucose Level 175 mg/dL (70-99) 149 mg/dL (70-99) Calcium Level 9.1 mg/dL (8.5-10.1) 8.3 mg/dL (8.5-10.1) Total Bilirubin 0.5 mg/dL (0.2-1.0) Aspartate Amino Transf (AST/SGOT) 22 U/L (15-37) Alanine Aminotransferase (ALT/SGPT) 28 U/L (16-63) Alkaline Phosphatase 97 U/L (46-116) Creatine Kinase 107 U/L (39-308) Creatine Kinase MB (Mass) 1.6 ng/mL (0.0-3.6) Creatine Kinase MB Relative Index 1.5 % (0-4) Troponin I Quantitative < 0.017 ng/mL (0.000-0.055) UF-Col-L-Type Natriuretic Peptide 659 pg/mL (0-449) Total Protein 7.2 g/dL (6.4-8.2) Albumin 3.3 g/dL (3.4-5.0) Albumin/Globulin Ratio 0.8 (1.0-1.7) Lipase 111 U/L (73-393) Urine Collection Type Unknown Urine Color Yellow Urine Clarity Clear Urine pH 5.0 Urine Specific [place] 1.020 Urine Protein Negative mg/dL (NEG-TRACE) Urine Glucose (UA) 100 mg/dL (NEG) Urine Ketones (Stick) Negative mg/dL (NEG) Urine Blood Negative (NEG) Urine Nitrite Negative (NEG) Urine Bilirubin Negative (NEG) Urine Urobilinogen Dipstick 0.2 mg/dL (0.2 mg/dL) Urine Leukocyte Esterase Negative (NEG) Urine RBC 0 /HPF (0-2) Urine WBC 1-4 /HPF (0-4) Urine Squamous Epithelial Cells Mod /LPF Urine Transitional Epithelial Cells Few /LPF Urine Bacteria 0 /HPF (0-FEW) Urine Hyaline Casts Many /HPF Urine Mucus Mod /LPF Glucose (Fingerstick) 141 mg/dL (70-99) Test 01/05/18 08:05 01/05/18 12:10 Glucose (Fingerstick) 129 mg/dL (70-99) 140 mg/dL (70-99) Laboratory Tests Test 01/04/18 21:01 01/05/18 05:25 01/05/18 08:05 01/05/18 12:10 Glucose (Fingerstick) 141 mg/dL (70-99) 129 mg/dL (70-99) 140 mg/dL (70-99) Sodium Level 140 mmol/L (136-145) Potassium Level 4.2 mmol/L (3.5-5.1) Chloride Level 107 mmol/L (98-107) Carbon Dioxide Level 24 mmol/L (21-32) Anion Gap 9 (6-14) Blood Urea Nitrogen 25 mg/dL (8-26) Creatinine 1.4 mg/dL (0.7-1.3) Estimated GFR (Cockcroft-Gault) 48.4 Glucose Level 149 mg/dL (70-99) Calcium Level 8.3 mg/dL (8.5-10.1) Medications Active Scripts Medications Dose Route/Sig Max Daily Dose Days Date Category Furosemide 20 Mg Tablet 20 Mg PO DAILY 01/05/18 Reported Levothyroxine Sodium 125 Mcg Tablet 125 Mcg PO DAILYAC 01/05/18 Reported Januvia (Sitagliptin Phosphate) 100 Mg Tablet 100 Mg PO DAILY 12/24/17 Reported Amiodarone Hcl 200 Mg Tablet 1 Tab PO DAILY 12/11/16 Rx Metformin Hcl 1,000 Mg Tablet 0.5 Tab PO BIDAC 08/02/16 Reported Aspirin Ec (Aspirin) 325 Mg Tablet.dr 1 Tab PO DAILY 07/10/16 Rx Omeprazole 40 Mg Capsule.dr 40 Mg PO DAILY 03/02/16 Reported Clopidogrel (Clopidogrel Bisulfate) 75 Mg Tablet 1 Tab PO DAILY 03/02/16 Reported Atorvastatin Calcium 40 Mg Tablet 1 Tab PO QHS 03/02/16 Reported Impression . note dictated ok to d/c home follow up as outpt thanks CHETAN RIVERA MD Jan 05, 2018 16:33
[2018-01-05] MEDS ORDERED: METO25TA4 PO (17:15)
--- NOTE | 2018-01-06 04:36 | CONS ---
DATE OF CONSULTATION: 01/05/2018 ATTENDING PHYSICIAN: Jo Peña M.D. REASON FOR CONSULTATION: The patient seen in Pulmonary consultation at the request of Dr. Peña for low O2 sats. HISTORY OF PRESENT ILLNESS: The patient is an 82-year-old male that presented to the Emergency Room after being found to have low O2 saturation at doctor's office. The patient states that he has been having issues now with near-syncopal episode for quite some time. He does not think that this particular episode is any different. He has a history of previous coronary artery disease status post bypass surgery in 2016. He has had previous subsequent PCI and stent placement. The patient denies any pleuritic type of discomfort. No acute onset of dyspnea associated with pleurisy and syncopal episode. PAST MEDICAL HISTORY: Remarkable for pulmonary embolism in 2016, mild COPD, chronic paroxysmal AFib, hypertension, hyperlipidemia and osteoarthritis. PAST SURGICAL HISTORY: As above. REVIEW OF SYSTEMS: As above, otherwise, a 10-point system was reviewed and negative. He recently had an echocardiogram dated 11/08/2017 revealing left ventricular function to be normal, EF was 55%. He had a stress test on the same day, which revealed no evidence of EKG changes and normal perfusion. He had a cardiac catheterization on 08/04/2016 with a patent RCA stent, patent graft, no significant change in compared to a month ago. CURRENT MEDICATIONS: List was reviewed. ALLERGIES: No known drug allergies. PHYSICAL EXAMINATION: VITAL SIGNS: Stable. O2 saturation was greater than 92%. HEENT: Eyes, the sclerae were nonicteric. NECK: Jugular venous distention was not elevated. No lymphadenopathy. CHEST: Full expansion. LUNGS: Adequate airway flow with no wheezes. CARDIOVASCULAR: Regular rate and rhythm with S1 and S2. No S3. ABDOMEN: Soft, nontender and nondistended. EXTREMITIES: No clubbing, cyanosis or pitting edema. RADIOLOGICAL DATA: Chest x-ray reviewed, no acute cardiopulmonary process. IMPRESSION: 1. Near-syncopal episode due to orthostasis. 2. Chronic obstructive pulmonary disease with hypoxemia with exertion. 3. Multiple admissions for orthostatic hypotension and near-syncopal episode. 4. Remote history of pulmonary embolism. 5. Coronary artery disease, status post coronary artery bypass grafting. 6. History of paroxysmal supraventricular tachycardia. PLAN: 1. Recommend continue current medical management. 2. Okay to discharge home. 3. Follow up in the outpatient department. 4. Home oxygen. I do appreciate the privilege in sharing in the patient's care. CHETAN RIVERA MD DR: ALIN/jacinto JOB#: [id number] / [id number]
== END 2018-01-05 17:45 | disposition home or self-care (01) | DRG 682 ==
LOC: ER 12:44 → 2 NORTH 14:20
PROVIDERS: ADMIT Internal Medicine; ATTEND Internal Medicine
DX: N17.9 Acute kidney failure, unspecified (principal); J96.91 Respiratory failure, unspecified with hypoxia; E86.0 Dehydration; E11.9 Type 2 diabetes mellitus without complications; E78.00 Pure hypercholesterolemia, unspecified; E78.5 Hyperlipidemia, unspecified; I10 Essential (primary) hypertension; I25.10 Atherosclerotic heart disease of native coronary artery without angina pectoris; I44.0 Atrioventricular block, first degree; I44.7 Left bundle-branch block, unspecified; I48.0 Paroxysmal atrial fibrillation; J44.9 Chronic obstructive pulmonary disease, unspecified; K21.9 Gastro-esophageal reflux disease without esophagitis; M19.90 Unspecified osteoarthritis, unspecified site; Z68.31 Body mass index [BMI] 31.0-31.9, adult; I95.1 Orthostatic hypotension; Z79.02 Long term (current) use of antithrombotics/antiplatelets; Z79.82 Long term (current) use of aspirin; Z82.3 Family history of stroke; Z82.49 Family history of ischemic heart disease and other diseases of the circulatory system; Z85.6 Personal history of leukemia; Z86.711 Personal history of pulmonary embolism; Z86.718 Personal history of other venous thrombosis and embolism; Z86.73 Personal history of transient ischemic attack (TIA), and cerebral infarction without residual deficits; Z86.74 Personal history of sudden cardiac arrest; Z87.891 Personal history of nicotine dependence; Z92.21 Personal history of antineoplastic chemotherapy; Z95.1 Presence of aortocoronary bypass graft; Z95.5 Presence of coronary angioplasty implant and graft; Z99.81 Dependence on supplemental oxygen; Z90.49 Acquired absence of other specified parts of digestive tract; Z79.899 Other long term (current) drug therapy
CPT/HCPCS: 36415; 71045; 80048; 80053; 81001; 82553; 82962; 83690; 83880; 84484; 85025; 85610; 93005; 96360; 96361; J1815; J7030; 97116; 99285-25